=== PATIENT | female | born 1935 | race Caucasian/White ===

== ENCOUNTER 2018-11-03 10:13 | Inpatient (IN) | payer MEDICARE, BC ==
[2018-11-03 11:27] LABS: CHLORIDE,CL 103 mmol/L (98-115); SODIUM,NA 138 mmol/L (136-145)
[2018-11-03] MEDS ORDERED: Magnesium Citrate Solution 296 ML Bottle PO ONE (12:10)
--- NOTE | 2018-11-03 12:11 | CR ---
[id number] RAD/RAD Chest PA And Lateral EXAM: RAD Chest PA And Lateral INDICATION: CARDIAC ARRHYTHMIA,UNSPECIFIED. COMPARISON: October 18, 2017. DISCUSSION: Right chest wall Mediport. Cardiomediastinal silhouette is normal in size and contour. No infiltrate, effusion, pneumothorax, or edema. IMPRESSION: No acute cardiopulmonary abnormality. Keon Sinha DO 11/03/18 [id number] Thank you for allowing us to participate in the care of your patient.
--- NOTE | 2018-11-03 12:13 | CR ---
[id number] RAD/RAD Abd Flat and Upright 2V EXAM: RAD Abd Flat and Upright 2V INDICATION: CARDIAC ARRHYTHMIA,UNSPECIFIED. COMPARISON: MRI abdomen with and without contrast 04/22/2017. DISCUSSION: Unobstructed bowel gas pattern. No radiographically evident pneumoperitoneum. Moderate amount of retained stool within the colon. IMPRESSION: Moderate amount of retained stool within the colon. No evidence of obstruction. Keon Sinha DO 11/03/18 [id number] Thank you for allowing us to participate in the care of your patient.
[2018-11-03] MEDS ORDERED: Diltiazem 125 MG in Sodium Chloride 0.9% 100 ML IV SCH (12:15)
[2018-11-03] MEDS ORDERED: diphenhydrAMINE 25 MG Cap PO ONE (13:02)
[2018-11-03] MEDS ORDERED: Acetaminophen 325 MG Tab PO ONE (13:04)
[2018-11-03] MEDS: Rivaroxaban 10 MG Tab PO SCH (13:07)
[2018-11-03] MEDS ORDERED: Furosemide 40 MG/4 ML VIAL IVPUSH ONE (13:14)
[2018-11-03] MEDS ORDERED: Acetaminophen 500 MG Tab PO ONE (14:15)
[2018-11-03] MEDS ORDERED: Sodium Chloride 0.9% 250 ML IV SCH (14:45)
[2018-11-03] MEDS ORDERED: Furosemide 40 MG/4 ML VIAL ONE (19:27)
[2018-11-03] MEDS: TRIAMCINOLONE ACETONIDE 0.1% TOP SCH (20:17)
[2018-11-03] MEDS ORDERED: traZODone 50 MG Tab PO ONE (23:19)
[2018-11-04] MEDS ORDERED: Diltiazem 125 MG in Sodium Chloride 0.9% 100 ML IV SCH (03:30)
[2018-11-04 08:16] LABS: ANION GAP 20.5 mmol/L (5-15); CHLORIDE,CL 99 mmol/L (98-115); SODIUM,NA 137 mmol/L (136-145)
[2018-11-04] MEDS: TRIAMCINOLONE ACETONIDE 0.1% TOP SCH ×3 (09:27→20:18)
[2018-11-04] MEDS: Levothyroxine 75 MCG Tab PO SCH (12:07)
[2018-11-04] MEDS ORDERED: Triamcinolone Acetonide 0.1% Oint 15 GM Tube TOP SCH (14:00)
--- NOTE | 2018-11-04 14:17 | PN ---
11/04/2018 PATIENT NAME: MEAGAN LOPEZ This is an 83-year-old female who is being seen today on inpatient rounds. She was admitted yesterday from the clinic with a new onset of atrial fibrillation with a rapid ventricular rate. Her initial EKG showed atrial fibrillation with RVR and frequent premature ventricular contractions. The ventricular rate was 121. By the time she got to the floor and was hooked up to telemetry, her heart rate had been 75 to 86. A Cardizem drip was initially entertained, however, was aborted due to the fact that she had a controlled rhythm. During the night last night, her heart rate did go up to 150 for a short period of time. A Cardizem drip was ordered again. By the time it was verified by pharmacy, the patient had normalized in the 80s to 90s again. She continues to be in atrial fibrillation with a ventricular rate of 85 to 91 with an occasional premature ventricular contraction. She also had difficulty sleeping last night and was given trazodone. Today, the patient states she just felt so tired and actually immediately after Dr. Rose and I left the room today, the patient fell back to sleep soundly. We did have an in-depth discussion yesterday regarding her CODE STATUS. Her wishes are to be DNR DNI. This is not documented in an advance directive. A social service consultation has been requested. When I went back in the room to sign the cardiopulmonary resuscitation, the CPR/DNR directive, the patient was sound asleep. When she wakes up, we will address this today. She did receive 2 units of packed RBCs yesterday due to the fact that her hemoglobin was 7.5, which is the low parameter for her to receive blood transfusions. PERTINENT LAB: Today's pertinent lab, WBCs 4.71, RBCs 3.14, hemoglobin 9.7 today, which is up two points. Comprehensive metabolic panel shows a normal sodium and potassium of 137 and 4.6 respectively. BUN is 36 today, whereas yesterday it was 27. Creatinine was low yesterday at 0.50 and today is 0.64. Calcium is low at 8.4. Total bilirubin was 2.8 yesterday and has gone up to 5.6 today. AST was 249 yesterday and went up to 541 today. ALT was 321 yesterday and 664 today. Alkaline phosphatase is increased from 118 to 139. Her BNP was 1190 yesterday. She was given 20 mg of Lasix in between her units of blood. TSH was elevated yesterday at 4.910. Two weeks ago, her levothyroxine dose was adjusted and she most likely has not adjusted to the new dose. She is due for a followup TSH in one month. Yesterday, a troponin was drawn and was found to be 0.11. It trended downward at 4 p.m. yesterday at 0.09 and this morning is 0.08. There may have been some component of a small myocardial infarction, which is a [id number] CT. EKG did not reflect this. She will need to have an echocardiogram on an outpatient basis. PHYSICAL EXAMINATION: VITAL SIGNS: Temp is 98.8, pulse 90, respirations 20, blood pressure 106/52, and O2 saturation is 98% on room air. SKIN: Ashen, dry, somewhat cool to touch. CARDIAC: Exam reveals S1, S2 to be normal with an irregularly irregular rhythm. LUNGS: Clear without rales, wheezes, or rhonchi. ABDOMEN: Soft, nontender. There is some mild pedal edema. IMPRESSION: 1. New onset atrial fibrillation with RVR with a controlled rate at this time. Dr. Alexa Rose did see the patient today and suggested that she be up walking more today to see what her rhythm does. On telemetry, she still is in atrial fibrillation with an occasional premature ventricular response. 2. Possible non-STEMI CT. She will be scheduled for an echocardiogram after discharge. 3. Elevated liver function tests, which have worsened. We will monitor these on a daily basis. 4. Myelodysplastic syndrome with anemia requiring frequent blood transfusions. She did receive 2 units of packed RBCs yesterday and her hemoglobin has improved. The patient is not feeling considerably better yet today. She reports it usually takes one day or so. 5. Congestive heart failure with an elevated BNP and pedal edema found on admission. She had gained 9 pounds prior to admission. Today she is exactly the same as she was yesterday. 6. The patient is on Xarelto. We will see what her rhythm does. She has had a couple of episodes where she has had a rapid ventricular rate. We will see how she does with exercise. She may benefit from calcium channel blockers for rhythm control. 7. Hypothyroidism. Her TSH was elevated. However, she has had a dose adjustment within the last two weeks. She will repeat a TSH in one month. /[id number]/MODL
[2018-11-04] MEDS: Rivaroxaban 10 MG Tab PO SCH (14:25)
[2018-11-04] MEDS: EXJADE 500 MG PO SCH (14:27)
[2018-11-04] MEDS ORDERED: Magnesium Citrate Solution 296 ML Bottle PO ONE (17:03)
[2018-11-04] MEDS ORDERED: Magnesium Sulfate/Water 2 GM in Premix Bag 1 BAG IV ONE (17:12)
[2018-11-04] MEDS ORDERED: Magnesium Sulfate 2 GM in Sodium Chloride 0.9% 100 ML IV ONE (17:30)
[2018-11-04] MEDS ORDERED: traZODone 50 MG Tab PO PRN (21:00)
[2018-11-05] MEDS: Levothyroxine 75 MCG Tab PO SCH ×2 (06:13→06:29)
[2018-11-05 08:20] LABS: ANION GAP 16.1 mmol/L (5-15); CHLORIDE,CL 100 mmol/L (98-115); SODIUM,NA 138 mmol/L (136-145)
[2018-11-05] MEDS: Cholecalciferol (Vitamin D3) 1,000 Unit Tab PO SCH (08:52)
[2018-11-05] MEDS: B.Bifidum/B.Longum/L.Acidophilus/L.Rhamnosus (Probiotic) Cap PO SCH (08:52)
[2018-11-05] MEDS: Vitamin B Complex Tab PO SCH (08:52)
[2018-11-05] MEDS: Aspirin 81 MG Tab.EC PO SCH (08:53)
[2018-11-05] MEDS: Levofloxacin 500 MG Tab PO SCH (08:53)
[2018-11-05] MEDS: Fluconazole 100 MG Tab PO SCH (08:53)
[2018-11-05] MEDS ORDERED: DEFERASIROX PO SCH (09:00)
[2018-11-05] MEDS: TRIAMCINOLONE ACETONIDE 0.1% TOP SCH ×3 (09:52→21:29)
[2018-11-05] MEDS: EXJADE 500 MG PO SCH (09:52)
[2018-11-05] MEDS: Diltiazem IR 30 MG Tab PO SCH ×3 (10:52→22:36)
[2018-11-05] MEDS: Rivaroxaban 10 MG Tab PO SCH (14:47)
[2018-11-05] MEDS: Sodium Chloride 0.9% 20 ML SDV FLUSH SCH (22:36)
[2018-11-06] MEDS: Diltiazem IR 30 MG Tab PO SCH ×2 (06:04→11:40)
[2018-11-06] MEDS: Sodium Chloride 0.9% 20 ML SDV FLUSH SCH ×3 (06:05→21:58)
[2018-11-06 07:51] LABS: ANION GAP 11.8 mmol/L (5-15); CHLORIDE,CL 100 mmol/L (98-115); SODIUM,NA 135 mmol/L (136-145)
[2018-11-06] MEDS: Fluconazole 100 MG Tab PO SCH (08:31)
[2018-11-06] MEDS: Levofloxacin 500 MG Tab PO SCH (08:32)
[2018-11-06] MEDS: B.Bifidum/B.Longum/L.Acidophilus/L.Rhamnosus (Probiotic) Cap PO SCH (08:32)
[2018-11-06] MEDS: Aspirin 81 MG Tab.EC PO SCH (08:32)
[2018-11-06] MEDS: Cholecalciferol (Vitamin D3) 1,000 Unit Tab PO SCH (08:33)
[2018-11-06] MEDS: Vitamin B Complex Tab PO SCH (08:34)
[2018-11-06] MEDS: EXJADE 500 MG PO SCH (10:49)
[2018-11-06] MEDS: TRIAMCINOLONE ACETONIDE 0.1% TOP SCH ×3 (11:00→21:06)
[2018-11-06] MEDS: Levothyroxine 75 MCG Tab PO SCH (11:39)
--- NOTE | 2018-11-06 12:18 | PCM.PN ---
- General Info Date of Service: 11/06/18 Admission Dx/Problem (Free Text): A-fib with RVR. MDS Anemia secondary to MDS. - Review of Systems Systems Review Comment:: Dodie is seen today on inpatient rounds. She was admitted on 11/03/18 from clinic with new onset atrial fibrillation with RVR. Rate was initially 121. By the time she got to the floor and was hooked up to telemetry her heart rate was down to 75. Cardizem was not started initially. She had an episode over night on the where her HR went to the 150's but again, by the time the diltiazem drip was verified by pharmacy she had come down without any intervention. On 11/04/18 she had an episode in the afternoon of HR up to the 140's and EKG was obtained which showed a very regular SVT, not a-fib with RVR. Without any intervention she converted to NSR with EKG to document that. As she continued to go in and out of a-fib and irregular rhythms she was started on a diltiazem drip although she did drop her BP to the 80's systolic and even though her HR was 105 at the time, it was discontinued. She was started on oral diltiazem 30 mg PO q 6 hours and for the past 24 hours her HR has not been above 100 and on telemetry she appears to currently be in NSR. Dodie is very complicated. She has myelodysplastic syndrome and is transfusion dependent. While her bone marrow is "low risk" she has very low WBC and is at high risk for infection. She is on prophylactic levofloxacin as well as fluconazole. She has largely remained healthy. Upon admission her her troponin was elevated at 0.11 and trended down without any intervention. Last check was 11/05 and was 0.7. BNP was also elevated at 1190 on admission, she has no hx of heart failure. She also had a transaminitis that has slowly been improving without intervention. Her weight increased from 137 to 144 lbs, presumably from volume overload as she has not been eating more than usual. She is on no diuretic therapy at the current time. She has developed iron overload secondary to multiple transfusions and is currently on Exjade daily. She has a hx of hypothyroidism, TSH was slightly elevated on admission but T4 is WNL. Current dose of levothyroxine is 150mcg PO daily. She has been constipated and has received MOM, she has had BM's subsequent to that. She was started on Xarelto for stroke prophylaxis due to paroxysmal a-fib and has been tolerating that. She has some skin breakdown on her feet, she had a sore on her left heel that she has been using duoderm on and there has been significant improvement. The tips of all her toes are cracked and she has been using triamcinolone on her feet, which has been helping. - Patient Data Vitals - Most Recent: Last Vital Signs Temp 97.8 F 11/06/18 11:00 Pulse 81 11/06/18 11:40 Resp 16 11/06/18 11:00 BP 100/52 L 11/06/18 11:40 Pulse Ox 97 11/06/18 11:00 Weight - Most Recent: 144 lb 1 oz I&O - Last 24 Hours: Intake & Output 11/05/18 11/06/18 11/06/18 22:59 06:59 14:59 Intake Total 400 100 Output Total 400 400 Balance 0 -300 Lab Results Last 24 Hours: Laboratory Results - last 24 hr 11/05/18 11/06/18 11/06/18 Range/Units 07:30 07:15 07:15 WBC 2.49 L (5.00-10.00) 10^3/uL RBC 2.84 L (3.80-5.50) 10^6/uL Hgb 8.7 L (12.0-16.0) g/dL Hct 25.5 L (37.0-47.0) % MCV 89.8 (82.0-92.0) fL MCH 30.6 (27.0-31.0) pg MCHC 34.1 (32.0-36.0) g/dL RDW 14.8 H (11.5-14.5) % Plt Count 88 L (150-400) 10^3/uL MPV 13.2 H (7.4-10.4) fL Sodium 135 L (136-145) mmol/L Potassium 4.2 (3.3-5.3) mmol/L Chloride 100 (98-115) mmol/L Carbon Dioxide 27.4 (21.0-32.0) mmol/L Anion Gap 11.8 (5-15) mmol/L BUN 20 (6-25) mg/dL Creatinine 0.42 L (0.51-1.17) mg/dL Est Cr Clr Drug Dosing 94.53 mL/min Estimated GFR (MDRD) > 60 mL/min Glucose 134 H (75 - 99) mg/dL Calcium 8.3 L (8.7-10.3) mg/dL Total Bilirubin 2.5 H (0.2-1.0) mg/dL AST 180 H (15-37) U/L ALT 469 H (12-78) U/L Alkaline Phosphatase 118 H (46-116) IU/L Total Protein 4.8 L (6.4-8.2) g/dL Albumin 2.85 L (3.00-4.80) g/dL Free T4 0.86 (0.59-1.17) ng/dL Med Orders - Current: Current Medications Aspirin (Halfprin) 81 mg PO DAILY [facility] Last Admin: 11/06/18 08:32 Dose: 81 mg Cholecalciferol (Vitamin D3) 2,000 units PO DAILY [facility] Last Admin: 11/06/18 08:33 Dose: 2,000 units Diltiazem HCl (Cardizem Cd) 120 mg PO DAILY [facility] Docusate Sodium (Colace) 100 mg PO BID [facility] Fluconazole (Diflucan) 200 mg PO DAILY [facility] Last Admin: 11/06/18 08:31 Dose: 200 mg Sodium Chloride (Normal Saline) 250 mls @ 50 mls/hr IV ASDIRECTED [facility] Last Admin: 11/04/18 18:04 Dose: 50 mls/hr Diltiazem HCl 125 mg/ Sodium (Chloride) 125 mls @ 5 mls/hr IV TITRATE E[facility]IN; Protocol Last Admin: 11/04/18 23:00 Dose: 5 mg/hr, 5 mls/hr Lactobacillus Acidophilus/Rhamnosus (Multi-Sharon Plus) 1 cap PO DAILY [facility] Last Admin: 11/06/18 08:32 Dose: 1 cap Levofloxacin (Levaquin) 500 mg PO DAILY [facility] Last Admin: 11/06/18 08:32 Dose: 500 mg Levothyroxine Sodium (Levothyroxine) 150 mcg PO ACBREAKFAST [facility] Last Admin: 11/06/18 11:39 Dose: 150 mcg Exjade 500 Mg Own (Med) 0 each PO DAILY [facility] Last Admin: 11/06/18 10:49 Dose: 1 each Rivaroxaban (Xarelto) 20 mg PO 1300 [facility] Last Admin: 11/05/18 14:47 Dose: 20 mg Sodium Chloride (Normal Saline) 20 ml FLUSH Q8H ERLIN Last Admin: 11/06/18 06:05 Dose: 20 ml Trazodone HCl (Trazodone) 50 mg PO BEDTIME PRN PRN Reason: Sleep Last Admin: 11/05/18 22:36 Dose: 50 mg Triamcinolone Acetonide (Triamcinolone Acetonide 0.1% Oint) 0 gm TOP TID [facility] Last Admin: 11/05/18 21:29 Dose: 1 applic Vitamin B Complex (Vitamin B Complex) 1 each PO DAILY [facility] Last Admin: 11/06/18 08:34 Dose: 1 each Discontinued Medications Acetaminophen (Tylenol) 650 mg PO NOW ONE Stop: 11/03/18 13:05 Last Admin: 11/03/18 14:39 Dose: Not Given Acetaminophen (Tylenol Extra Strength) 1,000 mg PO ONETIME ONE Stop: 11/03/18 14:16 Last Admin: 11/03/18 14:30 Dose: 1,000 mg Diltiazem HCl (Cardizem) 30 mg PO Q6HR [facility] Last Admin: 11/06/18 11:40 Dose: 30 mg Diphenhydramine HCl (Benadryl) 25 mg PO ONETIME ONE Stop: 11/03/18 13:03 Last Admin: 11/03/18 14:21 Dose: 25 mg Furosemide (Lasix) 20 mg IVPUSH NOW ONE Stop: 11/03/18 13:15 Last Admin: 11/03/18 19:33 Dose: 20 mg Furosemide (Lasix) Confirm Administered Dose 40 mg .ROUTE .STK-MED ONE Stop: 11/03/18 19:28 Last Admin: 11/03/18 19:45 Dose: Not Given Diltiazem HCl 125 mg/ Sodium (Chloride) 125 mls @ 5 mls/hr IV TITRATE ERLIN; Protocol Magnesium Sulfate 2 gm/ Premix 50 mls @ 150 mls/hr IV ONETIME ONE Stop: 11/04/18 17:31 Last Admin: 11/04/18 18:20 Dose: Not Given Magnesium Sulfate 2 gm/ Sodium (Chloride) 104 mls @ 104 mls/hr IV ONETIME ONE Stop: 11/04/18 18:29 Last Admin: 11/04/18 18:03 Dose: 104 mls/hr Magnesium Citrate (Citrate Of Magnesia) 30 ml PO ONETIME ONE Stop: 11/03/18 12:11 Last Admin: 11/03/18 13:00 Dose: 30 ml Magnesium Citrate (Citrate Of Magnesia) 30 ml PO ONETIME ONE Stop: 11/04/18 17:04 Last Admin: 11/04/18 18:04 Dose: 30 ml Ptom Jadenu ( (Deferasirox) 500mg) 500 each PO DAILY ERLIN Trazodone HCl (Trazodone) 50 mg PO ONETIME ONE Stop: 11/03/18 23:20 Last Admin: 11/03/18 23:42 Dose: 50 mg Triamcinolone Acetonide (Triamcinolone Acetonide 0.1% Oint) 1 gm TOP TID ERLIN Last Admin: 11/04/18 18:03 Dose: Not Given - Exam General: Alert, Oriented, Cooperative, No Acute Distress Lungs: Clear to Auscultation, Normal Respiratory Effort Cardiovascular: Regular Rate, Regular Rhythm, No Murmurs GI/Abdominal Exam: Normal Bowel Sounds Skin: Other (Cracking of the skin at the tips of her toes bilaterally, no evidence of cellulitis. Healing skin ulcer of the left heel.) - Problem List & Annotations (1) Atrial fibrillation with rapid ventricular response SNOMED Code(s): 053701531481758 Code(s): I48.91 - UNSPECIFIED ATRIAL FIBRILLATION Status: Acute Current Visit: Yes (2) Myelodysplastic syndrome SNOMED Code(s): 807540755 Code(s): D46.9 - MYELODYSPLASTIC SYNDROME, UNSPECIFIED Status: Acute Current Visit: Yes (3) Hypothyroidism SNOMED Code(s): 14822077 Code(s): E03.9 - HYPOTHYROIDISM, UNSPECIFIED Status: Acute Current Visit : Yes (4) Iron overload due to repeated red blood cell transfusions SNOMED Code(s): 551114083 Code(s): E83.111 - HEMOCHROMATOSIS DUE TO REPEATED RED BLOOD CELL TRANSFUSIONS Status: Acute Current Visit: Yes (5) Constipation SNOMED Code(s): 83720615 Code(s): K59.00 - CONSTIPATION, UNSPECIFIED Status: Acute Current Visit: Yes (6) Weakness SNOMED Code(s): 65795163 Code(s): R53.1 - WEAKNESS Status: Acute Current Visit: Yes - Problem List Review Problem List Initiated/Reviewed/Updated: Yes - My Orders Last 24 Hours: My Active Orders 11/06/18 11:44 Communication Order [RC] ROUTINE 11/06/18 12:00 Diltiazem [Cardizem CD] 120 mg PO DAILY 11/06/18 21:00 Docusate Sodium [Colace] 100 mg PO BID - Assessment Assessment:: Primary Diagnoses: 1. A-fib with RVR. 2. Anemia secondary to MDS. 3. Possible congestive heart failure. 4. Weakness. Secondary diagnoses: 1. Hypothyroidism. 2. Iron overload secondary to repeated blood transfusion. 3. Skin breakdown. 4. Constipation. - Plan Plan:: Primary Diagnoses: 1. A-fib with RVR. Will transition to Diltiazem XR 120 mg PO daily. Rate currently controlled, and currently in NSR. 2. Anemia secondary to MDS. Transfuse for hemoglobin 7.5 or less. 3. Possible congestive heart failure. Discontinue IVF's, monitor weight, lasix PRN. Will get ECHO later this week. Needs cardiology consultation. 4. Weakness. Will get PT eval and treat for possible swingbed status. Secondary diagnoses: 1. Hypothyroidism. Continue levothyroxine 150 mcg PO daily. T4 WNL. 2. Iron overload secondary to repeated blood transfusion. Continue Exjade. 3. Skin breakdown. Triamcinolone to feel, cover with vaseline, then soft socks. Duoderm to left heel. 4. Constipation. Colace 100 mg PO BID.
[2018-11-06] MEDS: Rivaroxaban 10 MG Tab PO SCH (12:46)
[2018-11-06] MEDS: Diltiazem 120 MG Cap.CD PO SCH (12:47)
[2018-11-06] MEDS ORDERED: Furosemide 40 MG/4 ML VIAL IVPUSH ONE (18:26)
[2018-11-06] MEDS: Docusate Sodium 100 MG Cap PO SCH (21:06)
[2018-11-07] MEDS: Sodium Chloride 0.9% 20 ML SDV FLUSH SCH ×2 (07:23→08:13)
[2018-11-07] MEDS: Levothyroxine 75 MCG Tab PO SCH (07:29)
[2018-11-07 07:54] LABS: ANION GAP 15.1 mmol/L (5-15); CHLORIDE,CL 97 mmol/L (98-115); SODIUM,NA 135 mmol/L (136-145)
[2018-11-07] MEDS: Levofloxacin 500 MG Tab PO SCH (08:38)
[2018-11-07] MEDS: Docusate Sodium 100 MG Cap PO SCH (08:38)
[2018-11-07] MEDS: Vitamin B Complex Tab PO SCH (08:38)
[2018-11-07] MEDS: Cholecalciferol (Vitamin D3) 1,000 Unit Tab PO SCH (08:38)
[2018-11-07] MEDS: Aspirin 81 MG Tab.EC PO SCH (08:38)
[2018-11-07] MEDS: B.Bifidum/B.Longum/L.Acidophilus/L.Rhamnosus (Probiotic) Cap PO SCH (08:39)
[2018-11-07] MEDS: Fluconazole 100 MG Tab PO SCH (08:39)
[2018-11-07] MEDS: Diltiazem 120 MG Cap.CD PO SCH (09:10)
[2018-11-07] MEDS: TRIAMCINOLONE ACETONIDE 0.1% TOP SCH (09:29)
[2018-11-07] MEDS ORDERED: EXJADE 500 MG PO SCH (10:30)
[2018-11-07 10:58] VITALS: BP 94/52
[2018-11-07] MEDS ORDERED: Nitroglycerin 0.4 MG Tab.SL SL PRN (11:38)
[2018-11-07] MEDS ORDERED: Atropine 0.1 MG/ML 10 ML Syringe IVPUSH PRN (11:38)
[2018-11-07] MEDS ORDERED: EPINEPHrine 1:10,000 1 MG/10 ML Syringe IVPUSH PRN (11:38)
[2018-11-07] MEDS ORDERED: Lidocaine 2% 100 MG/5 ML Syringe IVPUSH PRN (11:38)
--- NOTE | 2018-11-07 11:58 | PN ---
11/05/2018 PATIENT NAME: MEAGAN LOPEZ SUBJECTIVE: This is an 83-year-old female who was admitted to the hospital on for new-onset atrial fibrillation with rapid ventricular rate. She has had a couple of episodes of SVT. There have been a couple of times as well that she was to receive a Cardizem drip, but by the time the order was verified she had converted or her rate had improved. Yesterday, when I saw her in the afternoon, she was in a normal sinus rhythm. She did go into an atrial fibrillation at a rate of 150 at approximately 10:45 last evening Cardizem drip was administered for approximately 15 minutes and she did convert back into sinus rhythm. This morning, she had another episode of atrial fibrillation with RVR and the Cardizem drip was reinstituted, however, had to be discontinued due to hypotension. The patient reports she feels better today. She is currently in atrial fibrillation with premature ventricular contractions. She is feeling less tired. She was constipated on admission and has received magnesium citrate and has had some satisfactory bowel movements. LABORATORY DATA: Pertinent lab data from today; her hemoglobin is 9.8. White blood cell count is 3.24, RBCs 3.23, hematocrit is 28.8. Panel shows a normal sodium and potassium. Her magnesium was low yesterday at 1.7. She did receive a one time dose of 2 g of magnesium sulfate IV. Her magnesium now is 2.2 today. Calcium is 8.5 with a normal range being 8.7-10.3. Her albumin is normal. Liver enzymes were elevated yesterday in fact had risen profoundly. Her admission total bilirubin was 2.8. Yesterday was 5.6 and today it has come down to 3.7. AST was 249 at admission, went up to 541 yesterday, and has improved to 343 today. ALT on admission was 321 and went up to 664 yesterday and now it is 619. Alkaline phosphatase was 118 on admission and is now 134. There was concern that she possibly had a small myocardial infarction and non- STEMI. Troponin I on admission was 0.11. Later that day, it trended downward to 0.09. Yesterday, it was 0.08 and today is normal at 0.07 and is trending downward. TSH was elevated on admission at 4.910. Two weeks ago, she had levothyroxine dosage adjustment. She will have a repeat TSH in a month. OBJECTIVE: VITAL SIGNS: On exam, temp is 98.1, pulse 92, respirations 20, blood pressure 107/57, O2 saturation is 93% on room air. SKIN: Slightly ashen/grayish, however, improved from yesterday. Yesterday, she did have some mild jaundice today. This is improved. CARDIAC: Reveals an irregularly irregular rhythm with no murmur, click, or gallop at this time appreciated. LUNGS: Clear without rales, wheezes, or rhonchi. ABDOMEN: Soft, nontender. Bowel sounds present in all 4 quadrants. There is a trace pedal edema. IMPRESSION: 1. Atrial fibrillation with rapid ventricular response. She is going in an out of the atrial fibrillation. She does have a Cardizem drip on standby. However, this morning when the Cardizem drip was initiated, it had to be discontinued due to hypotension. She will start on oral Cardizem 30 mg every 6 hours today. We will see how she tolerates this. We did talk yesterday about possible transfer to [place] for Cardiology consultation, possibly procedures if indicated. She has thought about this. Being this is a weekend, we will keep her here. She is hemodynamically stable. She will need an echocardiogram as soon as possible. 2. Myelodysplastic syndrome. She did have 2 units of packed RBCs on the day of admission and her hemoglobin has improved to 9.8. 3. Elevated liver function tests, etiology unclear. These jumped up so high yesterday and seemed to be trending downward now. 4. [id number] myocardial infarction with elevated troponin. Her troponins have normalized today. 5. Hypomagnesemia. This is improved with one dose of mag sulfate 2 g. 6. Hypothyroidism. She did have an elevated TSH; however, she has recently had a levothyroxine dose adjustment. It was most likely too early to repeat it on admission, but because she was in a new-onset atrial fibrillation with rapid ventricular response, we did check it. A TSH will be checked again in a month. We will continue to monitor her. I will update Dr. Alexa Rose on the patient's progress. /[id number]/MODL
--- NOTE | 2018-11-07 14:37 | DISCH ---
ADDENDUM: This discharge summary also serves as her admission history and physical for swing bed admission. /[id number]/MODL
--- NOTE | 2018-11-08 09:22 | DISCH ---
This is an 83-year-old female who was admitted to the hospital on 11/03/2018 with new onset atrial fibrillation with rapid ventricular rate. She has also had a couple of episodes of SVT. There have been a couple of times as well that she was to receive a Cardizem drip, but by the time the order was verified, she converted or her rate had improved. On 11/04/2018, the patient had converted into normal sinus rhythm. She then went back into atrial fibrillation, requiring a Cardizem drip for a short period of time, which converted her back into sinus rhythm. On 11/05/2018, the Cardizem drip was again reinstituted due to atrial fibrillation with RVR; however, the patient did not tolerate it due to hypotension. The patient was started on oral Cardizem 30 mg every 6 hours on 11/05/2018. She was tolerating that and Dr. Alexa Rose changed her to long- acting Cardizem 120 mg daily yesterday. She continues to be in sinus rhythm at this time. We had discussed her transferring to [facility] for a Cardiology workup; however, the patient has become quite weak from inactivity and will need to be optimized. It is also now not urgent that she had the Cardiology consultation due to the fact that she is in a stable normal sinus rhythm. She is now scheduled for an echocardiogram and peripheral arterial ultrasounds this week. The patient is hemodynamically stable. She was evaluated by Physical Therapy, who felt that approximately 1 week in swing bed would help optimize her to the point where she could return home. The patient has a history of myelodysplastic syndrome. She did receive 2 units of packed RBCs on the day of admission. Her hemoglobin is staying stable at 9.2 today. The patient had elevated liver function tests throughout her inpatient stay, which have been trending downward now. She may have had a [id number] myocardial infarction with elevated troponin. Her troponins did normalize. An echocardiogram will show if there is any wall motion abnormalities or any valvular dysfunction. It would be interesting to know what her ejection fraction is. She did have hypomagnesemia, which improved with one dose of mag sulfate. She has a history of hypothyroidism and had a levothyroxine dose adjustment approximately 2 weeks ago. I did check a TSH on admission due to the atrial fibrillation with RVR. She will have a repeat in 1 month. I did not readjust her medication at this time. A T4 was drawn yesterday and found to be normal. The patient also has intermittent cyanosis of her lower extremities and some open sores on her toes, which have been treated with triamcinolone. She also has a right heel ulcer which she has been applying DuoDerm to. The patient thinks she may have had peripheral Doppler ultrasounds in the past, but she is unclear about this. PHYSICAL EXAM ON DISCHARGE: VITAL SIGNS: On exam, she is afebrile. She is in a normal sinus rhythm with a ventricular rate of 70s to 80s per telemetry. Respirations are 20, blood pressure is 106/70. O2 saturation is 98% on room air. SKIN: Warm and dry to touch. CARDIAC: Reveals S1, S2 to be normal. Rate and rhythm are regular. No murmur, click, or gallop is auscultated. LUNGS: Clear without rales, wheezes, or rhonchi. ABDOMEN: Soft, nontender. Bowel sounds present in all 4 quadrants. EXTREMITIES: There is mild pedal edema and some cyanotic color of her toes with open areas on the distal aspects of most of the digits of the lower extremities. IMPRESSION: 1. Atrial fibrillation with rapid ventricular response. She is now converted to normal sinus rhythm with an unacceptable ventricular rate. She will continue on oral Cardizem. She will have an echocardiogram performed on , 11/10/2018 in this facility at 1 p.m. 2. Congestive heart failure. BNP today was 1070, this is a slight improvement from admission. She did receive Lasix yesterday due to some increased shortness of breath and some increased fluid in her lower extremities, which has improved with one dose of Lasix. Her weight was 9 pounds, higher than normal on the day of admission and since admission has went from 137 to 144. Unchanged with the Lasix dose yesterday. 3. Myelodysplastic syndrome. She did receive a blood transfusion on the day of her inpatient admission for a hemoglobin of 7.5. Her hemoglobin now is 9.2. 4. Elevated liver function tests. Etiology still unclear to me; however, they are trending downward and the patient is no longer jaundiced. 5. [id number] myocardial infarction with elevated troponin. Her troponins have now normalized. 6. Hypomagnesemia, resolved with one dose of mag sulfate 2 g IV. 7. Hypothyroidism. TSH was elevated, however, she has recently had a levothyroxine dose adjustment. T4 was normal yesterday. 8. Hematuria. She did have some blood in her urine today. We did obtain a urine sample, which showed urine rbc 75 to 100 with a large amount of occult blood. This is most likely from the Xarelto. We will continue to monitor this closely. 9. Cyanosis of the lower extremities with ulcerations of many of the digits of the lower extremities. A peripheral arterial ultrasound will be performed in this facility on 11/09/2018 at 8:30 in the morning. She is now being transferred to swing bed care. Cardiology consultation will be scheduled as soon as possible. The patient will undergo physical therapy for deconditioning and hopefully be optimized to the point where she can go home. [place] Her plan is to move into assisted living in the middle of November. Her son and daughter were at bedside today and all plan of care was discussed with them and they wished to proceed. My findings were communicated with Dr. Alexa Rose, who is very familiar with this patient's condition. /[id number]/MODL
== END 2018-11-07 12:07 | disposition swing bed (61) | DRG 281 ==
LOC: KA.OC 10:13 → KA.MS 11:27
PROC: 30233N1 Transfusion of Nonautologous Red Blood Cells into Peripheral Vein, Percutaneous Approach (ICD-10-PCS; principal; 2018-11-03)
DX: I48.91 Unspecified atrial fibrillation (principal); I21.4 Non-ST elevation (NSTEMI) myocardial infarction; L97.419 Non-pressure chronic ulcer of right heel and midfoot with unspecified severity; D46.9 Myelodysplastic syndrome, unspecified; E03.9 Hypothyroidism, unspecified; R79.89 Other specified abnormal findings of blood chemistry; Z96.1 Presence of intraocular lens; K59.00 Constipation, unspecified; Z66 Do not resuscitate; D63.8 Anemia in other chronic diseases classified elsewhere; E83.111 Hemochromatosis due to repeated red blood cell transfusions; I95.9 Hypotension, unspecified; E83.42 Hypomagnesemia; R31.9 Hematuria, unspecified; I50.9 Heart failure, unspecified; L97.509 Non-pressure chronic ulcer of other part of unspecified foot with unspecified severity; Z79.82 Long term (current) use of aspirin; Z90.49 Acquired absence of other specified parts of digestive tract; Z98.49 Cataract extraction status, unspecified eye; Z79.899 Other long term (current) drug therapy; Z90.710 Acquired absence of both cervix and uterus; Z88.8 Allergy status to other drugs, medicaments and biological substances
CPT/HCPCS: 36415; 36430; 71046; 74021; 80053; 81001; 82728; 83735; 83880; 84439; 84443; 84484; 85025; 85027; 86850; 86900; 86901; 86920; 86922; 93005; 97162-GP; A9270-GY; J1940; J3475; J3490; J7050; P9016

== ENCOUNTER 2018-11-07 10:50 | Inpatient (IN) | payer MEDICARE, BC ==
[2018-11-07] MEDS ORDERED: EPINEPHrine 1:10,000 1 MG/10 ML Syringe IVPUSH PRN (12:14)
[2018-11-07] MEDS ORDERED: Atropine 0.1 MG/ML 10 ML Syringe IVPUSH PRN (12:14)
[2018-11-07] MEDS ORDERED: traZODone 50 MG Tab PO PRN (12:14)
[2018-11-07] MEDS ORDERED: Nitroglycerin 0.4 MG Tab.SL SL PRN (12:14)
[2018-11-07] MEDS ORDERED: Lidocaine 2% 100 MG/5 ML Syringe IVPUSH PRN (12:14)
[2018-11-07] MEDS: Rivaroxaban 10 MG Tab PO SCH (13:26)
[2018-11-07] MEDS: Triamcinolone Acetonide 0.1% Oint 15 GM Tube TOP SCH ×2 (13:33→22:10)
[2018-11-07] MEDS ORDERED: Triamcinolone Acetonide 0.1% Oint 15 GM Tube TOP SCH (14:00)
[2018-11-07] MEDS ORDERED: Furosemide 40 MG/4 ML VIAL IVPUSH ONE (19:38)
[2018-11-07] MEDS: Sodium Chloride 0.9% 20 ML SDV FLUSH SCH ×2 (19:55→22:41)
[2018-11-07] MEDS: Docusate Sodium 100 MG Cap PO SCH ×2 (19:55→22:41)
[2018-11-08] MEDS: Levothyroxine 75 MCG Tab PO SCH (07:18)
[2018-11-08 07:54] LABS: ANION GAP 9.1 mmol/L (5-15); CHLORIDE,CL 100 mmol/L (98-115); SODIUM,NA 137 mmol/L (136-145)
[2018-11-08] MEDS: Levofloxacin 500 MG Tab PO SCH (08:56)
[2018-11-08] MEDS: Docusate Sodium 100 MG Cap PO SCH ×2 (08:56→20:57)
[2018-11-08] MEDS: Fluconazole 100 MG Tab PO SCH (08:56)
[2018-11-08] MEDS: Aspirin 81 MG Tab.EC PO SCH (08:56)
[2018-11-08] MEDS: Cholecalciferol (Vitamin D3) 1,000 Unit Tab PO SCH (08:57)
[2018-11-08] MEDS: Vitamin B Complex Tab PO SCH (08:57)
[2018-11-08] MEDS: B.Bifidum/B.Longum/L.Acidophilus/L.Rhamnosus (Probiotic) Cap PO SCH (08:57)
[2018-11-08] MEDS: Diltiazem 120 MG Cap.CD PO SCH (08:59)
[2018-11-08] MEDS ORDERED: CYANOCOBALAMIN PO SCH (09:00)
[2018-11-08] MEDS ORDERED: FLUCONAZOLE 200 MG PO SCH (09:00)
[2018-11-08] MEDS ORDERED: FOLIC AC PO SCH (09:00)
[2018-11-08] MEDS ORDERED: Non-Formulary Medication 1 Each (Ergocalciferol (Vitamin D2) [Vitamin D2] 2,000 UNIT) PO SCH (09:00)
[2018-11-08] MEDS ORDERED: [UNRECOGNIZED DRUG - OTHER] PO SCH (09:00)
[2018-11-08] MEDS ORDERED: Aspirin 81 MG Tab.EC PO SCH (09:00)
[2018-11-08] MEDS ORDERED: Levofloxacin 500 MG Tab PO SCH (09:00)
[2018-11-08] MEDS ORDERED: Diltiazem IR 30 MG Tab PO ONE (09:00)
[2018-11-08] MEDS ORDERED: VIT B6 PO SCH (09:00)
[2018-11-08] MEDS ORDERED: DEFERASIROX PO SCH ×2 (09:00→10:30)
[2018-11-08] MEDS ORDERED: Non-Formulary Medication 1 Each (L.Acidoph,Paracasei, B.Lactis [Probiotic] 1 CAP) PO SCH (09:00)
[2018-11-08] MEDS ORDERED: Non-Formulary Medication 1 Each (Levothyroxine Sodium [Synthroid] 150 MCG) PO SCH (09:00)
[2018-11-08] MEDS: Sodium Chloride 0.9% 20 ML SDV FLUSH SCH (09:39)
[2018-11-08] MEDS ORDERED: Patient's Own Medication 1 Each PO SCH (10:30)
[2018-11-08] MEDS: Triamcinolone Acetonide 0.1% Oint 15 GM Tube TOP SCH ×3 (10:44→20:59)
[2018-11-08] MEDS: DEFERASIROX PO SCH (10:51)
[2018-11-08] MEDS: Rivaroxaban 10 MG Tab PO SCH (13:50)
[2018-11-09] MEDS: Sodium Chloride 0.9% 20 ML SDV FLUSH SCH ×3 (00:07→20:55)
[2018-11-09] MEDS: Levothyroxine 75 MCG Tab PO SCH (07:51)
[2018-11-09] MEDS: Fluconazole 100 MG Tab PO SCH (08:59)
[2018-11-09] MEDS: Cholecalciferol (Vitamin D3) 1,000 Unit Tab PO SCH (08:59)
[2018-11-09] MEDS: Aspirin 81 MG Tab.EC PO SCH (08:59)
[2018-11-09] MEDS: B.Bifidum/B.Longum/L.Acidophilus/L.Rhamnosus (Probiotic) Cap PO SCH (08:59)
[2018-11-09] MEDS: Vitamin B Complex Tab PO SCH (08:59)
[2018-11-09] MEDS: Docusate Sodium 100 MG Cap PO SCH ×2 (09:00→20:52)
[2018-11-09] MEDS: Diltiazem 120 MG Cap.CD PO SCH (09:00)
[2018-11-09] MEDS: Levofloxacin 500 MG Tab PO SCH (09:03)
[2018-11-09] MEDS: Triamcinolone Acetonide 0.1% Oint 15 GM Tube TOP SCH ×3 (09:07→20:57)
[2018-11-09] MEDS: DEFERASIROX PO SCH (10:13)
--- NOTE | 2018-11-09 10:37 | US ---
[id number] US/US Arterial Doppler LE [place] Exam: US Arterial Doppler LE [place] Clinical Data: LOWER EXTREMITY CYANOSIS. ULCERATION. COMPARISON: CORRELATION IS MADE WITH THE EXAM OF JUNE 27, 2018. FINDINGS: There is no abnormality of color Doppler, waveforms, or velocities. IMPRESSION: NO DISCRETE ABNORMALITY. Mikael Butron MD 11/09/18 1036 Thank you for allowing us to participate in the care of your patient.
[2018-11-09] MEDS: Rivaroxaban 10 MG Tab PO SCH (12:53)
[2018-11-09] MEDS ORDERED: Rivaroxaban 10 MG Tab ONE (12:58)
[2018-11-10] MEDS: Levothyroxine 75 MCG Tab PO SCH (07:37)
[2018-11-10] MEDS ORDERED: Magnesium Citrate Solution 296 ML Bottle PO ONE (08:43)
[2018-11-10] MEDS: Fluconazole 100 MG Tab PO SCH (09:04)
[2018-11-10] MEDS: Aspirin 81 MG Tab.EC PO SCH (09:04)
[2018-11-10] MEDS: Vitamin B Complex Tab PO SCH (09:04)
[2018-11-10] MEDS: Cholecalciferol (Vitamin D3) 1,000 Unit Tab PO SCH (09:04)
[2018-11-10] MEDS: Levofloxacin 500 MG Tab PO SCH (09:04)
[2018-11-10] MEDS: Docusate Sodium 100 MG Cap PO SCH ×2 (09:04→21:40)
[2018-11-10] MEDS: B.Bifidum/B.Longum/L.Acidophilus/L.Rhamnosus (Probiotic) Cap PO SCH (09:04)
[2018-11-10] MEDS: Diltiazem 120 MG Cap.CD PO SCH (09:04)
[2018-11-10] MEDS: Sodium Chloride 0.9% 20 ML SDV FLUSH SCH ×2 (09:06→21:42)
[2018-11-10] MEDS: Triamcinolone Acetonide 0.1% Oint 15 GM Tube TOP SCH ×3 (09:08→21:41)
[2018-11-10 10:08] LABS: ANION GAP 12.5 mmol/L (5-15); CHLORIDE,CL 101 mmol/L (98-115); SODIUM,NA 140 mmol/L (136-145)
[2018-11-10] MEDS: DEFERASIROX PO SCH (10:55)
[2018-11-10] MEDS: Rivaroxaban 10 MG Tab PO SCH (13:22)
[2018-11-11] MEDS: Levothyroxine 75 MCG Tab PO SCH (06:35)
[2018-11-11] MEDS: Vitamin B Complex Tab PO SCH (08:03)
[2018-11-11] MEDS: Levofloxacin 500 MG Tab PO SCH (08:03)
[2018-11-11] MEDS: Fluconazole 100 MG Tab PO SCH (08:03)
[2018-11-11] MEDS: Cholecalciferol (Vitamin D3) 1,000 Unit Tab PO SCH (08:03)
[2018-11-11] MEDS: B.Bifidum/B.Longum/L.Acidophilus/L.Rhamnosus (Probiotic) Cap PO SCH (08:03)
[2018-11-11] MEDS: Docusate Sodium 100 MG Cap PO SCH (08:03)
[2018-11-11] MEDS: Aspirin 81 MG Tab.EC PO SCH (08:03)
[2018-11-11] MEDS: Sodium Chloride 0.9% 20 ML SDV FLUSH SCH (08:04)
[2018-11-11] MEDS: Triamcinolone Acetonide 0.1% Oint 15 GM Tube TOP SCH (10:00)
[2018-11-11] MEDS: Diltiazem 120 MG Cap.CD PO SCH (10:00)
[2018-11-11 10:01] VITALS: BP 93/58
[2018-11-11] MEDS: DEFERASIROX PO SCH (10:42)
--- NOTE | 2018-11-14 10:01 | DISCH ---
HOSPITAL COURSE: This is a patient who has been in swing bed since 11/07/2018. Prior to that time, she was admitted to acute care for a new-onset of atrial fibrillation with rapid ventricular response. She was transferred to swing bed on 11/07/2018. She had started on Cardizem CD 120 mg daily. She was in sinus rhythm initially, however, converted back into atrial fibrillation, but her rate is now well controlled. She had peripheral Doppler studies of her lower extremities due to cyanosis of the lower extremities as well as some ulcerations of the distal aspects of her toes. The arterial study was normal. She had an echocardiogram performed on 11/09/2018, with results pending. She has been evaluated and seen by Physical Therapy on a daily basis and has made significant improvement. She has remained hemodynamically stable. Her appetite has been good and she feels ready to be discharged. She has a history of myelodysplastic syndrome. She did receive 2 units of packed RBCs on 11/03/2018. Her hemoglobin has been staying stable and was 9.6 yesterday. The patient had significantly elevated liver function tests. On admission to acute care, these are trending downward and normalizing. There is a question whether she had possibly a non-ST elevation myocardial infarction with elevated troponins. Her troponins did trend downward and normalized. She does have a Cardiology consult pending. She had hypomagnesemia, which improved with one dose of intravenous magnesium sulfate. I noticed now yesterday her magnesium is 1.6. She will be discharged on an oral magnesium supplement. She has a history of hypothyroidism with a dose adjustment of levothyroxine 2 weeks ago. She is due to have this performed again in 1 month. She had a T4 drawn on 11/05/2018, which was normal. As previously noted, she has had intermittent cyanosis of her lower extremities and some open sores on her toes, which have been treated with triamcinolone. She also has a right heel ulcer that she has been applying DuoDerm to. The peripheral arterial studies were normal. LABORATORY DATA: Pertinent lab data from yesterday shows an improved white count of 2.68, hemoglobin stable at 9.6. Chemistries show normal potassium and sodium at respectively. BUN and creatinine are 10 and 0.49 respectively. Calcium is low at 8.0. Magnesium is low at 1.6. Total bilirubin trending downward and is 1.6 today. AST is 41, previously 73, previously much higher than that. ALT is trending downward. It was 294 on 11/08 and yesterday was 200. BNP is 1350. PHYSICAL EXAMINATION: VITAL SIGNS: Temp is 97.7, pulse rate 100, respirations 20, blood pressure 96/61, O2 saturation 97% on room air. SKIN: Warm, somewhat ashen, dry to touch. CARDIAC: Reveals irregularly irregular rhythm with no murmur, click, or gallop is auscultated. LUNGS: Clear without rales, wheezes, or rhonchi. She does have soft abdomen with positive bowel sounds. She does have some mild pedal edema with some cyanotic type of features in a dependent position. She does have good posterior tibial and dorsalis pedis pulses. IMPRESSION: 1. New onset of atrial fibrillation with a controlled ventricular response. She is being discharged with oral Cardizem CD 120 mg daily. She did have an echocardiogram with the results pending on 11/10/2018. She will be discharged with oral Xarelto 20 mg daily. 2. Congestive heart failure. She does have an elevated BNP. She has had some doses of intravenous Lasix which have improved her weight considerably. It has also improved her edema. Weight was 144 on swing bed admission on 11/07, now is 138. When she was admitted to acute care, her weight was 137. 3. Myelodysplastic syndrome. Her hemoglobin is staying stable at 9.6 yesterday. She did receive 2 units of packed RBCs on her day of inpatient admission on 11/03/2018. 4. Elevated liver function tests, trending downward. The etiology is still somewhat unclear. 5. Possible non-ST elevation myocardial infarction with elevated troponin. Troponins have normalized. She will have a Cardiology consultation in the near future. 6. Hypomagnesemia. This did improve with an IV dose of magnesium sulfate. I am discharging her on magnesium sulfate 500 mg daily. 7. Hypothyroidism. TSH was elevated, however, T4 was normal. This will be checked in 1 month. 8. She did have some hematuria. This is most likely related to Xarelto. 9. Cyanosis of the lower extremities without vascular etiology. She will continue with triamcinolone to the distal aspects of the toes where there are open ulcerations. The patient's son, Eddie and her daughter, Rocio were at the bedside today. We did discuss discharge plan with Physical Therapy to continue 3 times a week. MEDICATIONS TO INCLUDE: Cardizem CD 120 mg daily, Xarelto 20 mg p.o. daily, and magnesium sulfate 500 mg in two 250 mg doses b.i.d. She will return to the clinic in 7-10 days. My findings were communicated with Dr. Alexa Rose, who is very familiar with the patient's condition and has seen her in the hospital as well. /[id number]/MODL
== END 2018-11-11 12:10 | disposition home or self-care (01) | DRG 282 ==
LOC: KA.MS 12:07
PROC: 30233N1 Transfusion of Nonautologous Red Blood Cells into Peripheral Vein, Percutaneous Approach (ICD-10-PCS; principal; 2018-11-07)
DX: I48.91 Unspecified atrial fibrillation (principal); I21.4 Non-ST elevation (NSTEMI) myocardial infarction; D46.9 Myelodysplastic syndrome, unspecified; E03.9 Hypothyroidism, unspecified; E83.42 Hypomagnesemia; R79.89 Other specified abnormal findings of blood chemistry; R31.9 Hematuria, unspecified; L97.509 Non-pressure chronic ulcer of other part of unspecified foot with unspecified severity; I95.9 Hypotension, unspecified; I50.9 Heart failure, unspecified; R23.0 Cyanosis
CPT/HCPCS: 36415; 80053; 83735; 83880; 85025; 85027; 93306; 93925; 97110-GP; 97162-GP; A9270-GY; J1642; J1940

== ENCOUNTER 2018-12-09 14:40 | Emergency (ER) | payer MEDICARE, BC ==
[2018-12-09] MEDS ORDERED: Sodium Chloride 0.9% 1,000 ML IV SCH (15:45)
--- NOTE | 2018-12-09 15:45 | EDM.PDOC ---
ED HPI GENERAL MEDICAL PROBLEM - General Chief Complaint: General Time Seen by Provider: 12/09/18 15:04 Source of Information: Reports: Patient, Provider (Dr. Vigil and Raya Lopez ) History Limitations: Reports: No Limitations - History of Present Illness INITIAL COMMENTS - FREE TEXT/NARRATIVE: Patient presents with general weakness especially in her legs. She gets quite weak fairly regularly due to anemia related to her Myelodisplastic Syndrome; her Hg usually ranges from 7.5 when she needs blood to 10.5 at the highest. She usually gets 2 units of PRBCs every 2 weeks and had one 5 days ago. She had gone 4 weeks before that. She thinks the weakness today is related to dehydration/hypovolemia rather than anemia since she had the recent infusion. I noticed an irregular rhythm on auscultation and she says she is in and out of A Fib and takes Xarelto. Talking with Dr. Vigil and Raya I learned that the A Fib diagnosis is quite recent. She also has CHF with EF 45-50% and no history of pulmonary edema but sometimes gets ankle edema. She also is chronically neutropenic with WBC of 1 typical. For this she is on Levaquin 500 mg qd and Fluconazole prophylaxis. legs Pain Score (Numeric/FACES): 3 - Related Data Allergies Allergy/AdvReac Type Severity Reaction Status Date / Time hydrocodone Allergy Diaphoresis Verified 12/09/18 15:16 pregabalin [From Lyrica] Allergy TIA Verified 12/09/18 15:16 acetaminophen [From Tylenol] AdvReac Mild Nausea and Verified 12/09/18 15:16 Vomiting Home Meds: Home Meds L.acidoph,Paracasei, B.lactis [Probiotic] 1 cap PO DAILY 02/11/15 [History] Levothyroxine Sodium [Synthroid] 150 mcg PO DAILY 03/25/16 [History] Aspirin [Ecotrin EC] 81 mg PO DAILY 04/26/17 [History] Cyanocobalamin/Folic AC/Vit B6 [Folic Acid-Vit B6-Vit B12] 1 each PO DAILY 05/19 [History] Fluconazole [Diflucan] 200 mg PO DAILY 05/19/18 [History] Levofloxacin 500 mg PO DAILY 05/19/18 [History] Deferasirox [Jadenu] 500 mg PO DAILY 11/03/18 [History] Ergocalciferol (Vitamin D2) [Vitamin D2] 2,000 unit PO DAILY 11/03/18 [History] Triamcinolone Acetonide [Triamcinolone Acetonide 0.1% Oint] 1 applic TOP TID 06/13 [History] Diltiazem [Cardizem CD] 120 mg PO DAILY #30 cap.cd 11/11/18 [Rx] Docusate Sodium [Colace] 100 mg PO BID cap 11/11/18 [Rx] Magnesium 250 mg PO BID #30 tablet 11/11/18 [Rx] Rivaroxaban [Xarelto] 20 mg PO 1300 #30 tablet 11/11/18 [Rx] Triamcinolone Acetonide [Triamcinolone Acetonide 0.1% Oint] 0 gm TOP TID tube 11/11/18 [Rx] Past Medical History HEENT History: Reports: Cataract, Impaired Vision Cardiovascular History: Reports: Afib, Heart Murmur, Hypertension, MO, Syncope Respiratory History: Reports: None Gastrointestinal History: Reports: Colon Polyp Other Gastrointestinal History: H Pylori Genitourinary History: Reports: None Other Genitourinary History: stress incontinence 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[employer]HER History: Reports: Fibroids, Musculoskeletal History: Reports: Arthritis, Fibromyalgia Neurological History: Reports: CVA Psychiatric History: Reports: None Endocrine/Metabolic History: Reports: Hypothyroidism Hematologic History: Reports: Anemia, Blood Transfusion(s), Other (See Below) Other Hematologic History: MDS Immunologic History: Reports: Immunosuppression Oncologic (Cancer) History: Reports: Other (See Below) Other Oncologic History: MDS Dermatologic History: Reports: Eczema - Infectious Disease History Infectious Disease History: Reports: Chicken Pox, Measles, Mumps, Pertussis ( Whooping Cough) - Past Surgical History Head Surgeries/Procedures: Reports: None HEENT Surgical History: Reports: Cataract Surgery Cardiovascular Surgical History: Reports: None Respiratory Surgical History: Reports: None GI Surgical History: Reports: Appendectomy, Cholecystectomy, Colonoscopy Female Surgical History: Reports: Hysterectomy, Salpingo-Oophorectomy, Tubal Ligation Endocrine Surgical History: Reports: Thyroidectomy Neurological Surgical History: Reports: None Musculoskeletal Surgical History: Reports: Arthroscopic Knee, Carpal Tunnel, Joint Replacement, Knee Replacement Oncologic Surgical History: Reports: Bone Marrow Aspiration Dermatological Surgical History: Reports: None Social & Family History - Family History Family Medical History: Noncontributory - Caffeine Use Caffeine Use: Reports: Coffee, Tea ED ROS GENERAL - Review of Systems Review Of Systems: See Below Constitutional: Reports: Weakness, Fatigue. Denies: Fever, Chills HEENT: Denies: Ear Pain, Throat Pain, Vision Change Respiratory: Reports: Shortness of Breath (mild, chronic). Denies: Cough Cardiovascular: Reports: Lightheadedness (some with the weakness but denies orthostatic lightheadedness). Denies: Chest Pain, Syncope GI/Abdominal: Denies: Abdominal Pain, Diarrhea, Vomiting : Denies: Dysuria, Flank Pain Musculoskeletal: Reports: No Symptoms Skin: Denies: Cyanosis, Jaundice, Mottled, Pallor, Diaphoresis Neurological: Denies: Confusion, Dizziness, Headache Psychiatric: Denies: Agitation, Anxiety, Confusion Hematologic/Lymphatic: Reports: Anemia (chronic due to MDS) ED EXAM, GENERAL - Physical Exam Exam: See Below Exam Limited By: No Limitations General Appearance: Alert, WD/WN, No Apparent Distress Eye Exam: Bilateral Eye: EOMI, Normal Inspection, PERRL Ears: Normal External Exam, Hearing Grossly Normal Nose: Normal Inspection, No Blood Throat/Mouth: Normal Inspection, Normal Lips, Normal Voice, No Airway Compromise Head: Atraumatic, Normocephalic Neck: Normal Inspection, Full Range of Motion Respiratory/Chest: No Respiratory Distress, Lungs Clear, Normal Breath Sounds, No Accessory Muscle Use Cardiovascular: No Edema, No Gallop, No JVD, No Murmur, Irregularly Irregular GI/Abdominal: Normal Bowel Sounds, Soft, Non-Tender, No Organomegaly, No Distention, No Abnormal Bruit Back Exam: Normal Inspection, Full Range of Motion. No: CVA Tenderness (L), CVA Tenderness (R) Extremities: Normal Inspection, Normal Range of Motion, Non-Tender, No Pedal Edema Neurological: Alert, Oriented, Normal Cognition, No Motor/Sensory Deficits Psychiatric: Normal Affect, Normal Mood Skin Exam: Warm, Dry, Intact, Normal Color, No Rash Course - Vital Signs Last Recorded V/S: Last Vital Signs Temp 98.1 F 12/10/18 00:53 Pulse 83 12/10/18 00:53 Resp 18 12/10/18 00:53 BP 94/60 12/10/18 00:53 Pulse Ox 98 12/10/18 00:53 - Orders/Labs/Meds Labs: Laboratory Tests 12/09/18 12/09/18 12/09/18 Range/Units 15:45 15:45 15:45 WBC 2.11 L (5.00-10.00) 10^3/uL RBC 2.22 L (3.80-5.50) 10^6/uL Hgb 7.1 L (12.0-16.0) g/dL Hct 21.1 L (37.0-47.0) % MCV 95.0 H (82.0-92.0) fL MCH 32.0 H (27.0-31.0) pg MCHC 33.6 (32.0-36.0) g/dL RDW 16.7 H (11.5-14.5) % Plt Count 137 L (150-400) 10^3/uL MPV 12.1 H (7.4-10.4) fL Immature Gran % (Auto) 0.9 (0.0-5.0) % Neut % (Auto) 18.0 L (50.0-70.0) % Lymph % (Auto) 42.7 H (20.0-40.0) % Owsley % (Auto) 36.0 H (2.0-8.0) % Eos % (Auto) 0.0 L (1.0-3.0) % Baso % (Auto) 2.4 H (0.0-1.0) % Immature Gran # (Auto) 0.02 (0.00-0.50) 10^3/uL Neut # (Auto) 0.38 L (2.50-7.00) 10^3/uL Lymph # (Auto) 0.90 L (1.00-4.00) 10^3/uL [place]wsley # (Auto) 0.76 (0.10-0.80) 10^3/uL Eos # (Auto) 0.00 L (0.10-0.30) 10^3/uL Baso # (Auto) 0.05 (0.00-0.10) 10^3/uL Sodium 137 (136-145) mmol/L Potassium 3.5 (3.3-5.3) mmol/L Chloride 100 (98-115) mmol/L Carbon Dioxide 32.4 H (21.0-32.0) mmol/L Anion Gap 8.1 (5-15) mmol/L BUN 22 (6-25) mg/dL Creatinine 0.62 (0.51-1.17) mg/dL Est Cr Clr Drug Dosing 64.72 mL/min Estimated GFR (MDRD) > 60 mL/min Glucose 152 H (75 - 99) mg/dL Calcium 8.1 L (8.7-10.3) mg/dL Total Bilirubin 1.7 H (0.2-1.0) mg/dL AST 26 (15-37) U/L ALT 43 (12-78) U/L Alkaline Phosphatase 81 (46-116) IU/L Total Protein 5.1 L (6.4-8.2) g/dL Albumin 3.07 (3.00-4.80) g/dL TSH, Ultra Sensitive 2.590 (0.340-4.820) uIU/mL Blood Type Gel Antibody Screen Crossmatch 12/09/18 Range/Units 15:45 WBC (5.00-10.00) 10^3/uL RBC (3.80-5.50) 10^6/uL Hgb (12.0-16.0) g/dL Hct (37.0-47.0) % MCV (82.0-92.0) fL MCH (27.0-31.0) pg MCHC (32.0-36.0) g/dL RDW (11.5-14.5) % Plt Count (150-400) 10^3/uL MPV (7.4-10.4) fL Immature Gran % (Auto) (0.0-5.0) % Neut % (Auto) (50.0-70.0) % Lymph % (Auto) (20.0-40.0) % [place]ws[place] % (Auto) (2.0-8.0) % Eos % (Auto) (1.0-3.0) % Baso % (Auto) (0.0-1.0) % Immature Gran # (Auto) (0.00-0.50) 10^3/uL Neut # (Auto) (2.50-7.00) 10^3/uL Lymph # (Auto) (1.00-4.00) 10^3/uL Owsley # (Auto) (0.10-0.80) 10^3/uL Eos # (Auto) (0.10-0.30) 10^3/uL Baso # (Auto) (0.00-0.10) 10^3/uL Sodium (136-145) mmol/L Potassium (3.3-5.3) mmol/L Chloride (98-115) mmol/L Carbon Dioxide (21.0-32.0) mmol/L Anion Gap (5-15) mmol/L BUN (6-25) mg/dL Creatinine (0.51-1.17) mg/dL Est Cr Clr Drug Dosing mL/min Estimated GFR (MDRD) mL/min Glucose (75 - 99) mg/dL Calcium (8.7-10.3) mg/dL Total Bilirubin (0.2-1.0) mg/dL AST (15-37) U/L ALT (12-78) U/L Alkaline Phosphatase (46-116) IU/L Total Protein (6.4-8.2) g/dL Albumin (3.00-4.80) g/dL TSH, Ultra Sensitive (0.340-4.820) uIU/mL Blood Type O POSITIVE Gel Antibody Screen Negative Crossmatch See Detail Meds: Medications Discontinued Medications Generic Name Dose Route Start Last Admin Trade Name Kevinq PRN Reason Stop Dose Admin Acetaminophen 1,000 mg 12/09/18 18:10 12/09/18 18:12 Tylenol Extra Strength PO 12/09/18 18:11 1,000 mg ONETIME ONE Administration Diphenhydramine HCl 25 mg 12/09/18 17:28 12/09/18 18:13 Benadryl PO 12/09/18 17:29 25 mg ONETIME ONE Administration Heparin Sodium (Porcine) 500 units 12/09/18 17:30 12/10/18 00:54 Heparin Lock Flush 100 Units/Ml FLUSH 12/09/18 17:31 Not Given ASDIRECTED ONE Heparin Sodium (Porcine) Confirm 12/10/18 00:43 12/10/18 00:58 Heparin Lock Flush 100 Units/Ml Administered 12/10/18 00:44 500 units Dose Administration 500 units .ROUTE .STK-MED ONE Sodium Chloride 1,000 mls @ 500 mls/hr 12/09/18 15:45 12/09/18 16:08 Normal Saline IV 500 mls/hr ASDIRECTED ERLIN Administration Sodium Chloride 20 ml 12/09/18 22:00 Saline Flush FLUSH Q8HR ERLIN - Re-Assessments/Exams Free Text/Narrative Re-Assessment/Exam: 12/09/18 16:28 Hg 7.1 which is quite surprising to patient with the recent transfusion, but she would like to transfuse today if possible since she is so weak. I also discussed this with Dr. Vigil and will transfuse today. We are running saline at 500/hr now and will start PRBCs as soon as they are available. Patient is stable. Departure - Departure Time of Disposition: 09:49 Disposition: Home, Self-Care 01 Condition: Good Clinical Impression: Chronic anemia, General weakness, MDS (myelodysplastic syndrome) - Discharge Information Referrals: Alexa Suero MD [Primary Care Provider] - Forms: ED Department Discharge Additional Instructions: 1. Continue your regular medications and protocols. 2. Follow up as usual for your transfusions. 3. Follow up with your PCP if needed vs ER.
[2018-12-09 16:18] LABS: ANION GAP 8.1 mmol/L (5-15); CHLORIDE,CL 100 mmol/L (98-115); SODIUM,NA 137 mmol/L (136-145)
[2018-12-09] MEDS ORDERED: Acetaminophen 325 MG Tab PO ONE (17:27)
[2018-12-09] MEDS ORDERED: diphenhydrAMINE 25 MG Cap PO ONE (17:28)
[2018-12-09] MEDS ORDERED: Acetaminophen 500 MG Tab PO ONE (18:10)
[2018-12-09] MEDS ORDERED: Sodium Chloride 0.9% 10 ML Syringe FLUSH SCH (22:00)
[2018-12-10 01:28] VITALS: BP 94/60
== END 2018-12-10 01:06 | disposition home or self-care (01) ==
LOC: KA.ED 14:40
DX: D46.9 Myelodysplastic syndrome, unspecified (principal); R53.1 Weakness; I48.91 Unspecified atrial fibrillation; I10 Essential (primary) hypertension; I25.2 Old myocardial infarction; E03.9 Hypothyroidism, unspecified; Z88.5 Allergy status to narcotic agent; Z88.8 Allergy status to other drugs, medicaments and biological substances; Z79.899 Other long term (current) drug therapy
CPT/HCPCS: 36430; 80053; 84443; 85025; 86850; 86900; 86901; 86920; 86922; 96361; 96374; 99284; 99285-25; A9270-GY; J1642; J7030; P9016

== ENCOUNTER 2019-03-28 15:10 | Emergency (ER) | payer MEDICARE, BC ==
--- NOTE | 2019-03-28 16:03 | EDM.PDOC ---
<RebekaBandar D - Last Filed: 03/28/19 15:55> ED HPI GENERAL MEDICAL PROBLEM - General Chief Complaint: Neuro Symptoms/Deficits Time Seen by Provider: 03/28/19 15:40 Source of Information: Reports: Patient History Limitations: Reports: No Limitations - History of Present Illness INITIAL COMMENTS - FREE TEXT/NARRATIVE: Patient presents with weakness of right foot (foot drop) that started Wednesday morning, about 56 hours ago. She has also felt partially numb in that foot since then. She also has noticed a feeling in her eyes that she can't explain. She says her vision is good and normal but a feeling she can't describe well, but no pain. She has paroxysmal A Fib and takes Xarelto. She also has Myelodysplastic Syndrome and treats at the [facility]. She denies any injury. - Related Data Allergies Allergy/AdvReac Type Severity Reaction Status Date / Time hydrocodone Allergy Diaphoresis Verified 03/28/19 15:43 pregabalin [From Lyrica] Allergy TIA Verified 03/28/19 15:43 acetaminophen [From Tylenol] AdvReac Mild Nausea and Verified 03/28/19 15:43 Vomiting Home Meds: Home Meds L.acidoph,Paracasei, B.lactis [Probiotic] 1 cap PO DAILY 02/11/15 [History] Levothyroxine Sodium [Synthroid] 150 mcg PO DAILY 03/25/16 [History] Cyanocobalamin/Folic AC/Vit B6 [Folic Acid-Vit B6-Vit B12] 1 each PO DAILY 05/19 [History] Fluconazole [Diflucan] 200 mg PO DAILY 05/19/18 [History] Deferasirox [Jadenu] 500 mg PO DAILY 11/03/18 [History] Ergocalciferol (Vitamin D2) [Vitamin D2] 2,000 unit PO DAILY 11/03/18 [History] Diltiazem [Cardizem CD] 120 mg PO DAILY #30 cap.cd 11/11/18 [Rx] Docusate Sodium [Colace] 100 mg PO BID cap 11/11/18 [Rx] Magnesium 250 mg PO BID #30 tablet 11/11/18 [Rx] cycloSPORINE, Modified [Neoral] 100 mg PO BEDTIME 01/02/19 [History] cycloSPORINE, Modified [Neoral] 200 mg PO DAILY 01/02/19 [History] Apixaban [Eliquis] 2.5 mg PO DAILY 03/28/19 [History] Past Medical History HEENT History: Reports: Cataract, Impaired Vision Cardiovascular History: Reports: Afib, Heart Murmur, Hypertension, [place], Syncope Respiratory History: Reports: None Gastrointestinal History: Reports: Colon Polyp Other Gastrointestinal History: H Pylori Genitourinary History: Reports: None Other Genitourinary History: stress incontinence 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, Musculoskeletal History: Reports: Arthritis, Fibromyalgia Neurological History: Reports: CVA Psychiatric History: Reports: None Endocrine/Metabolic History: Reports: Hypothyroidism Hematologic History: Reports: Anemia, Blood Transfusion(s), Other (See Below) Other Hematologic History: MDS Immunologic History: Reports: Immunosuppression Oncologic (Cancer) History: Reports: Other (See Below) Other Oncologic History: MDS Dermatologic History: Reports: Eczema - Infectious Disease History Infectious Disease History: Reports: Chicken Pox, Measles, Mumps, Pertussis ( Whooping Cough) - Past Surgical History Head Surgeries/Procedures: Reports: None HEENT Surgical History: Reports: Cataract Surgery Cardiovascular Surgical History: Reports: None Respiratory Surgical History: Reports: None GI Surgical History: Reports: Appendectomy, Cholecystectomy, Colonoscopy Female Surgical History: Reports: Hysterectomy, Salpingo-Oophorectomy, Tubal Ligation Endocrine Surgical History: Reports: Thyroidectomy Neurological Surgical History: Reports: None Musculoskeletal Surgical History: Reports: Arthroscopic Knee, Carpal Tunnel, Joint Replacement, Knee Replacement Oncologic Surgical History: Reports: Bone Marrow Aspiration Dermatological Surgical History: Reports: None Social & Family History - Family History Family Medical History: Noncontributory - Caffeine Use Caffeine Use: Reports: Coffee, Tea ED ROS GENERAL - Review of Systems Review Of Systems: See Below Constitutional: Reports: Weakness (right foot). Denies: Fever, Chills, Malaise HEENT: Denies: Ear Pain, Eye Discharge, Eye Pain, Throat Pain, Vision Change Respiratory: Denies: Shortness of Breath, Cough Cardiovascular: Denies: Chest Pain, Lightheadedness, Syncope Endocrine: Denies: Fatigue GI/Abdominal: Denies: Abdominal Pain, Diarrhea, Vomiting : Denies: Dysuria, Flank Pain Musculoskeletal: Denies: Neck Pain, Shoulder Pain, Arm Pain, Back Pain, Hand Pain, Leg Pain, Foot Pain Skin: Denies: Cyanosis, Jaundice, Mottled, Pallor, Diaphoresis Neurological: Denies: Confusion, Dizziness, Headache, Seizure, Syncope, Trouble Speaking, Difficulty Walking (not difficult but notices she slaps her right foot down with walking the last two days) Psychiatric: Denies: Agitation, Anxiety, Confusion Hematologic/Lymphatic: Reports: Anemia (gets transfusions regularly) ED EXAM, NEURO - Physical Exam Exam: See Below Exam Limited By: No Limitations General Appearance: Alert, WD/WN, No Apparent Distress Eye Exam: Bilateral Eye: EOMI, Normal Inspection (full visual morocho bilat), PERRL Ears: Normal External Exam, Hearing Grossly Normal Nose: Normal Inspection, No Blood Throat/Mouth: Normal Inspection, Normal Lips, Normal Voice, No Airway Compromise , Other (no facial droop or slurred speech) Head Exam: Atraumatic, Normocephalic Neck: Normal Inspection, Supple, Non-Tender, Full Range of Motion Respiratory/Chest: No Respiratory Distress, Lungs Clear, Normal Breath Sounds, No Accessory Muscle Use Cardiovascular: Regular Rate, Rhythm, No Edema, No Gallop, No Murmur GI/Abdominal: Normal Bowel Sounds, Soft, Non-Tender, No Organomegaly, No Distention Neurological: Alert, Normal Mood/Affect, CN II-XII Intact, Normal Plantar Flexion, Oriented x 3, Other (Dorsiflexion of right foot is mildly but noticeable). No: Straight Leg Raise (L), Straight Leg Raise (R) Back Exam: Normal Inspection, Full Range of Motion. No: Paraspinal Tenderness, Vertebral Tenderness Extremities: Normal Range of Motion, Non-Tender, No Pedal Edema, Other ( Dorsiflexion is slightly weaker on the right compared to the left, mild but noticeable. Plantar flexion is equal 5/5. Leg raise and flexion is equal 5/5. Arm and hand strength are equal 5/5.) Psychiatric: Normal Affect, Normal Mood Skin Exam: Warm, Dry, Intact, Normal Color, No Rash Course - Vital Signs Last Recorded V/S: Last Vital Signs Temp 96.8 F 03/28/19 15:15 Pulse 67 03/28/19 16:35 Resp 16 03/28/19 16:35 BP 107/73 03/28/19 16:35 Pulse Ox 97 03/28/19 16:35 - Orders/Labs/Meds Orders: Active Orders 24 hr Category Date Time Status EKG Documentation Completion [RC] ASDIRECTED Care 03/28/19 15:54 Active EKG Documentation Completion [RC] ASDIRECTED Care 03/28/19 15:55 Active EKG 12 Lead [EK] Routine Ther 03/28/19 15:54 Ordered - Re-Assessments/Exams Free Text/Narrative Re-Assessment/Exam: 03/28/19 16:[address] shows no acute intracranial process. Labs from [facility] today are okay. 03/28/19 16:34 AMELIE Sargent taking over now. Departure - Departure Disposition: Home, Self-Care 01 Clinical Impression: Transient weakness of lower extremity - Discharge Information Instructions: Weakness Referrals: Alexa Suero MD [Primary Care Provider] - Forms: ED Department Discharge Additional Instructions: Follow-up as scheduled with hematology on . Follow-up with Dr. Rose next week. Return to emergency room and sooner if symptoms worsen. <Mick Castanon - Last Filed: 03/28/19 16:51> Course - Re-Assessments/Exams Free Text/Narrative Re-Assessment/Exam: 03/28/19 16:46 Patient afebrile, nontoxic appearing, vital signs stable. Reassessment of right lower extremity shows minimal dorsal flexion weakness. No plantar flexion difference from left lower extremity. Patient states that years ago she did have trauma to right lower extremity and is unsure if this is truly a new event. No neuro focal deficit noted. Patient states that she has a follow- up appointment with hematology on . Consideration for MRI if symptoms continue. We'll have patient follow-up with Dr. Rose next week. Return to emergency department sooner if symptoms worsen. Departure - Departure Time of Disposition: 16:49 Condition: Good - Assessment/Plan Assessment:: Right foot weakness Plan: Follow-up with Dr. Rose
--- NOTE | 2019-03-28 16:08 | CT ---
[id number] CT/CT Head WO IV EXAM: CT Head WO IV CLINICAL DATA: NEUROLOGIC DEFICIT COMPARISON: CORRELATION IS MADE WITH THE EXAM OF JULY 12, 2017 FINDINGS: There is no mass or mass effect. There is no hemorrhage or hydrocephalus. There are no extra-axial fluid collections. There are no sites of abnormal attenuation. IMPRESSION: NO PLAIN CT EVIDENCE OF ACUTE INTRACRANIAL PROCESS. Mikael Burton MD 03/28/19 [id number] Thank you for allowing us to participate in the care of your patient.
[2019-03-28 16:35] VITALS: BP 107/73
== END 2019-03-28 17:00 | disposition home or self-care (01) ==
LOC: KA.ED 15:10
DX: M62.81 Muscle weakness (generalized) (principal); D46.9 Myelodysplastic syndrome, unspecified; E03.9 Hypothyroidism, unspecified; I25.2 Old myocardial infarction; I10 Essential (primary) hypertension; Z79.01 Long term (current) use of anticoagulants; Z88.5 Allergy status to narcotic agent; Z88.8 Allergy status to other drugs, medicaments and biological substances; Z88.6 Allergy status to analgesic agent; Z79.899 Other long term (current) drug therapy; Z86.73 Personal history of transient ischemic attack (TIA), and cerebral infarction without residual deficits
CPT/HCPCS: 70450; 93005; 99285-25

== ENCOUNTER 2019-05-22 18:40 | Inpatient (IN) | payer MEDICARE, BC ==
[2019-05-22] MEDS ORDERED: Sodium Chloride 0.9% 1,000 ML IV ONE (19:11)
[2019-05-22] MEDS: Sodium Chloride 0.9% 1,000 ML ONE ×2 (19:11→19:14)
--- NOTE | 2019-05-22 19:11 | EDM.PDOC ---
ED HPI GENERAL MEDICAL PROBLEM - General Stated Complaint: HYPOTENSION Time Seen by Provider: 05/22/19 18:49 Source of Information: Reports: Patient History Limitations: Reports: No Limitations - History of Present Illness INITIAL COMMENTS - FREE TEXT/NARRATIVE: Patient presents with tachycardia and chest heaviness. She says the heaviness and some dyspnea have been present since she awoke this morning 10+ hours ago. She isn't sure when the tachycardia started. She hasn't felt well all day. She says she has had A Fib episodes in the past but denies known VA. She has had one episode of racing heart before. Denies pain in neck, jaw, shoulders, arms. - Related Data Allergies Allergy/AdvReac Type Severity Reaction Status Date / Time hydrocodone Allergy Diaphoresis Verified 05/22/19 19:09 pregabalin [From Lyrica] Allergy TIA Verified 05/22/19 19:09 acetaminophen [From Tylenol] AdvReac Mild Nausea and Verified 05/22/19 19:09 Vomiting Home Meds: Home Meds Aidan.acidoph,Paracasei, B.lactis [Probiotic] 1 cap PO DAILY 02/11/15 [History] Levothyroxine Sodium [Synthroid] 150 mcg PO DAILY 03/25/16 [History] Ergocalciferol (Vitamin D2) [Vitamin D2] 2,000 unit PO DAILY 11/03/18 [History] cycloSPORINE, Modified [Neoral] 200 mg PO DAILY 01/02/19 [History] Apixaban [Eliquis] 2.5 mg PO DAILY 03/28/19 [History] Heparin Sodium,Porcine/PF [Heparin IV Flush 100 Units/ml] 100 unit IV ONETIME # 1 ml 04/05/19 [Rx] Docusate Sodium [Colace] 100 mg PO BEDTIME 05/22/19 [History] Furosemide 40 mg PO DAILY 05/22/19 [History] Magnesium 400 mg PO DAILY 05/22/19 [History] predniSONE [Prednisone] 20 mg PO DAILY 05/22/19 [History] Past Medical History HEENT History: Reports: Cataract, Impaired Vision Cardiovascular History: Reports: Afib, Heart Murmur, Hypertension, [place], Syncope Respiratory History: Reports: None Gastrointestinal History: Reports: Colon Polyp Other Gastrointestinal History: H Pylori Genitourinary History: Reports: None Other Genitourinary History: stress incontinence 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: Fibroids, Musculoskeletal History: Reports: Arthritis, Fibromyalgia Neurological History: Reports: CVA Psychiatric History: Reports: None Endocrine/Metabolic History: Reports: Hypothyroidism Hematologic History: Reports: Anemia, Blood Transfusion(s), Other (See Below) Other Hematologic History: MDS Immunologic History: Reports: Immunosuppression Oncologic (Cancer) History: Reports: Other (See Below) Other Oncologic History: MDS Dermatologic History: Reports: Eczema - Infectious Disease History Infectious Disease History: Reports: Chicken Pox, Measles, Mumps, Pertussis ( Whooping Cough) - Past Surgical History Head Surgeries/Procedures: Reports: None HEENT Surgical History: Reports: Cataract Surgery Cardiovascular Surgical History: Reports: None Respiratory Surgical History: Reports: None GI Surgical History: Reports: Appendectomy, Cholecystectomy, Colonoscopy Female Surgical History: Reports: Hysterectomy, Salpingo-Oophorectomy, Tubal Ligation Endocrine Surgical History: Reports: Thyroidectomy Neurological Surgical History: Reports: None Musculoskeletal Surgical History: Reports: Arthroscopic Knee, Carpal Tunnel, Joint Replacement, Knee Replacement Oncologic Surgical History: Reports: Bone Marrow Aspiration Dermatological Surgical History: Reports: None Social & Family History - Family History Family Medical History: Noncontributory - Caffeine Use Caffeine Use: Reports: Coffee, Tea ED ROS GENERAL - Review of Systems Review Of Systems: See Below Constitutional: Denies: Fever, Malaise, Weakness HEENT: Denies: Ear Pain, Vision Change Respiratory: Reports: Shortness of Breath. Denies: Cough Cardiovascular: Denies: Lightheadedness, Syncope Endocrine: Reports: Other (history of goiter surgery) GI/Abdominal: Denies: Abdominal Pain, Constipation, Diarrhea, Nausea, Vomiting : Denies: Dysuria, Flank Pain Musculoskeletal: Denies: Neck Pain, Shoulder Pain, Arm Pain, Back Pain Skin: Denies: Cyanosis, Jaundice, Mottled, Pallor, Diaphoresis Neurological: Denies: Confusion, Dizziness, Headache, Seizure, Syncope, Trouble Speaking, Difficulty Walking Psychiatric: Denies: Agitation, Anxiety, Confusion ED EXAM, GENERAL - Physical Exam Exam: See Below Exam Limited By: No Limitations General Appearance: Alert, WD/WN, No Apparent Distress Eye Exam: Bilateral Eye: EOMI, Normal Inspection, PERRL Ears: Normal External Exam, Hearing Grossly Normal Nose: Normal Inspection, No Blood Throat/Mouth: Normal Inspection, Normal Lips, Normal Voice, No Airway Compromise Head: Atraumatic, Normocephalic Neck: Normal Inspection, Supple, Non-Tender, Full Range of Motion. No: Carotid Bruit Respiratory/Chest: No Respiratory Distress, Lungs Clear, Normal Breath Sounds, No Accessory Muscle Use Cardiovascular: Normal Peripheral Pulses, No Edema, No Gallop, No JVD, No Murmur , Tachycardia (regular). No: Irregularly Irregular Peripheral Pulses: 2+: Carotid (L), Carotid (R), Radial (L), Radial (R), Dorsalis Pedis (L), Dorsalis Pedis (R) GI/Abdominal: Normal Bowel Sounds, Soft, Non-Tender, No Organomegaly, No Distention Back Exam: Normal Inspection, Full Range of Motion. No: CVA Tenderness (L), CVA Tenderness (R) Extremities: Normal Inspection, Normal Range of Motion, Non-Tender, No Pedal Edema, Slow Capillary Refill (delayed mildly in the tips of the toes only; she says this is normal for her.), Other (no calf swelling or tenderness) Neurological: Alert, Oriented, Normal Cognition, No Motor/Sensory Deficits Psychiatric: Normal Affect, Normal Mood Skin Exam: Warm, Dry, Intact, Normal Color, No Rash Course - Vital Signs Last Recorded V/S: Last Vital Signs Temp 96.9 F 05/22/19 18:40 Pulse 136 H 05/22/19 20:35 Resp 20 05/22/19 20:35 BP 100/53 L 05/22/19 20:35 Pulse Ox 96 05/22/19 19:18 - Orders/Labs/Meds Orders: Active Orders 24 hr Category Date Time Status Patient Status Manage Transfer [TRANSFER] Routine ADT 05/22/19 20:40 Ordered Patient Status [ADT] Routine ADT 05/22/19 20:39 Active EKG Documentation Completion [RC] ASDIRECTED Care 05/22/19 19:12 Active Sodium Chloride 0.9% [Normal Saline] 1,000 ml Med 05/22/19 20:45 Active IV ASDIRECTED EKG 12 Lead [EK] Routine Ther 05/22/19 19:11 Ordered Medication Orders Sodium Chloride (Normal Saline) 1,000 mls @ 100 mls/hr IV ASDIRECTED ERLIN Last Admin: 05/22/19 20:36 Dose: 100 mls/hr Labs: Laboratory Tests 05/22/19 05/22/19 Range/Units 19:00 19:00 WBC 4.25 L (5.00-10.00) 10^3/uL RBC 2.55 L (3.80-5.50) 10^6/uL Hgb 8.0 L (12.0-16.0) g/dL Hct 24.1 L (37.0-47.0) % MCV 94.5 H (82.0-92.0) fL MCH 31.4 H (27.0-31.0) pg MCHC 33.2 (32.0-36.0) g/dL RDW 14.4 (11.5-14.5) % Plt Count 161 (150-400) 10^3/uL MPV 13.0 H (7.4-10.4) fL Add Manual Diff Yes Neutrophils % (Manual) 6 L (50-70) % Lymphocytes % (Manual) 11 L (20-40) % Monocytes % (Manual) 29 H (2-8) % Eosinophils % (Manual) 0 L (1-3) % Basophils % (Manual) 0 (0-1) % Absolute Neutrophils 0.26 Lymphocytes # (Manual) 0.47 Monocytes # (Manual) 1.23 Nucleated RBCs 4 Sodium 138 (136-145) mmol/L Potassium 5.3 (3.3-5.3) mmol/L Chloride 101 (98-115) mmol/L Carbon Dioxide 24.1 (21.0-32.0) mmol/L Anion Gap 18.2 H (5-15) mmol/L BUN 61 H* (6-25) mg/dL Creatinine 1.38 H (0.51-1.17) mg/dL Est Cr Clr Drug Dosing 27.91 mL/min Estimated GFR (MDRD) 37 mL/min Glucose 189 H (75 - 99) mg/dL Calcium 8.6 L (8.7-10.3) mg/dL Troponin I 0.11 H* (0.00-0.070) ng/mL Meds: Medications Generic Name Dose Route Start Last Admin Trade Name Freq PRN Reason Stop Dose Admin Sodium Chloride 1,000 mls @ 100 mls/hr 05/22/19 20:45 05/22/19 20:36 Normal Saline IV 100 mls/hr ASDIRECTED ERLIN Administration Discontinued Medications Generic Name Dose Route Start Last Admin Trade Name Yinka PRN Reason Stop Dose Admin Diltiazem HCl 5 mg 05/22/19 20:33 05/22/19 20:39 Diltiazem IVPUSH 05/22/19 20:34 5 mg ONETIME ONE Administration Sodium Chloride Confirm 05/22/19 19:04 05/22/19 19:14 Normal Saline Administered 05/22/19 19:05 Not Given Dose 1,000 mls @ as directed .ROUTE .STK-MED ONE Sodium Chloride 1,000 mls @ 999 mls/hr 05/22/19 19:11 05/22/19 19:12 Normal Saline IV 05/22/19 20:11 999 mls/hr .BOLUS ONE Administration - Re-Assessments/Exams Free Text/Narrative Re-Assessment/Exam: 05/22/19 19:30 EKG shows SVT at 139 bpm. CXR is okay. WBC normal, Hgb is 8.0 which is pretty good for her. 05/22/19 20:34 Trop is 0.11, BUN and Creat are elevated slightly from her baseline. The troponin is not far above her baseline either and she had the same value in October when she was in with A Fib/RVR. HR is 135 and BP is 86/42. Discussed case with Dr. Vigil. This patient runs normal BP of 80's-90's systolic so Dr. Vigil feels diltiazem 5 mg IVP should be okay and can be repeated if BP tolerates it. 05/22/19 20:51 BP was 100/53 when the diltiazem was pushed and then dropped to 93/40 after 5 minutes. HR dropped from 133 to mid 70's within a minute of the diltiazem 5 mg. Please use this for admission H and P. 05/22/19 21:26 30+ minutes after the initial dose of diltiazem patient remained in 70's HR and adequate BP. Patient was admitted to inpatient status. Departure - Departure Time of Disposition: 20:59 Disposition: Admitted As Inpatient 66 Condition: Fair Clinical Impression: SVT (supraventricular tachycardia), Elevated troponin Hypotension Qualifiers: Hypotension type: unspecified hypotension type Qualified Code(s): I95.9 - Hypotension, unspecified Chronic renal disease Qualifiers: Chronic kidney disease stage: unspecified stage Qualified Code(s): N18.9 - Chronic kidney disease, unspecified - My Orders Last 24 Hours: My Active Orders 05/22/19 19:11 EKG 12 Lead [EK] Routine 05/22/19 19:12 EKG Documentation Completion [RC] ASDIRECTED 05/22/19 20:39 Patient Status [ADT] Routine 05/22/19 20:40 Patient Status Manage Transfer [TRANSFER] Routine 05/22/19 20:45 Sodium Chloride 0.9% [Normal Saline] 1,000 ml IV ASDIRECTED - Assessment/Plan Last 24 Hours: My Active Orders 05/22/19 19:11 EKG 12 Lead [EK] Routine 05/22/19 19:12 EKG Documentation Completion [RC] ASDIRECTED 05/22/19 20:39 Patient Status [ADT] Routine 05/22/19 20:40 Patient Status Manage Transfer [TRANSFER] Routine 05/22/19 20:45 Sodium Chloride 0.9% [Normal Saline] 1,000 ml IV ASDIRECTED
--- NOTE | 2019-05-22 19:35 | CR ---
[id number] RAD/RAD Chest PA And Lateral EXAM: FRONTAL AND LATERAL CHEST INDICATION: Dyspnea and chest heaviness. COMPARISON: November 03, 2018. DISCUSSION: A right internal jugular introduced port is in stable position tip overlying the SVC. No acute infiltrates. Borderline heart size. IMPRESSION: 1. No acute findings. Erick Lawrence MD 05/22/19 1934 Thank you for allowing us to participate in the care of your patient.
[2019-05-22 19:44] LABS: ANION GAP 18.2 mmol/L (5-15)
[2019-05-22] MEDS ORDERED: Diltiazem 25 MG/5 ML SDV IVPUSH ONE (20:33)
[2019-05-22] MEDS ORDERED: Sodium Chloride 0.9% 1,000 ML IV SCH (20:45)
[2019-05-22] MEDS ORDERED: Docusate Sodium 100 MG Cap **OWN MED PO ONE (22:45)
[2019-05-22] MEDS ORDERED: APIXABAN 2.5 MG PO ONE (22:45)
[2019-05-23] MEDS ORDERED: LEVOTHYROXINE SODIUM 150 MCG PO SCH (07:30)
[2019-05-23 08:27] LABS: ANION GAP 10.8 mmol/L (5-15)
[2019-05-23] MEDS: Levothyroxine 100 MCG Tab PO SCH (08:51)
[2019-05-23] MEDS ORDERED: APIXABAN 2.5 MG PO SCH (09:00)
[2019-05-23] MEDS ORDERED: MAGNESIUM 400 MG PO SCH (09:00)
[2019-05-23] MEDS ORDERED: PREDNISONE 10 MG PO SCH (09:00)
[2019-05-23] MEDS ORDERED: FUROSEMIDE 40 MG PO SCH (09:00)
[2019-05-23] MEDS ORDERED: diphenhydrAMINE 25 MG Cap PO ONE (09:23)
[2019-05-23] MEDS ORDERED: Sodium Chloride 0.9% 1,000 ML IV SCH (09:30)
[2019-05-23] MEDS ORDERED: Furosemide 40 MG Tab PO SCH (09:30)
[2019-05-23] MEDS ORDERED: Acetaminophen 500 MG Tab PO SCH (09:45)
[2019-05-23] MEDS: Apixaban 5 MG Tab PO SCH ×2 (09:51→21:06)
[2019-05-23] MEDS: predniSONE 20 MG Tab PO SCH (09:51)
[2019-05-23] MEDS: B.Bifidum/B.Longum/L.Acidophilus/L.Rhamnosus (Probiotic) Cap PO SCH (09:51)
[2019-05-23] MEDS: Metoprolol Succinate 25 MG Tab.ER PO SCH (09:56)
[2019-05-23] MEDS: CYCLOSPORINE 100 MG PO SCH ×2 (09:56→21:06)
[2019-05-23] MEDS ORDERED: Magnesium Oxide 500 MG Tab PO SCH (12:00)
--- NOTE | 2019-05-23 14:39 | PN ---
05/23/2019 PATIENT NAME: MEAGAN LOPEZ SUBJECTIVE: This is an 84-year-old female who was admitted through the emergency room last night. She presented with tachycardia and chest heaviness. She had some dyspnea as well. The patient states yesterday she pretty much slept the day away. She had not felt well. She does have a history of myelodysplastic syndrome and requires frequent transfusions. The patient did receive diltiazem 5 mg IV push, which converted a supraventricular tachycardia into a sinus rhythm. The patient is currently in normal sinus rhythm and is feeling quite a bit better. She did receive IV fluids. Hemoglobin yesterday was 8.0 and now is 6.3 today. She does have standing orders for 2 units of packed RBCs for hemoglobin less than 7.5. She will receive this today. Troponin has been elevated at 0.11 on admission, 0.09 at 8 o'clock last night, and 0.10 at 4:00 a.m. this morning. The patient does not have any chest pain at this time. I have discussed the elevated troponin with Dr. Alexa Rose. We have come to a collective conclusion that this may be a troponin leak due to the comorbidities that the patient has. She is being followed by Cardiology as well as Oncology. Her metal roaster is Dr. Floyd and her oncologist is Dr. Sanchez. The patient is feeling better with her pulse being normal. She denies any shortness of breath at this time. She does have an overall feeling of being tired. OBJECTIVE: VITAL SIGNS: Temperature is 97.9, pulse 78, respirations 18, blood pressure 95/42, O2 saturation is 94% on room air. SKIN: Pale, warm, dry to touch. CARDIAC: Reveals S1, S2 to be normal. Rate and rhythm are regular. No murmur, click, or gallop is auscultated. LUNGS: Clear without rales, wheezes, or rhonchi. ABDOMEN: Soft, nontender. Bowel sounds present in all 4 quadrants. EXTREMITIES: There is no pedal edema. IMPRESSION: 1. Supraventricular tachycardia converted into normal sinus rhythm after 1 dose of IV diltiazem. The patient seems to be stable and is normal sinus rhythm on the telemetry. 2. Myelodysplastic syndrome with anemia. She will receive 2 units of packed RBCs today. We will keep her in the hospital for at least 1 more day. If she remains stable, she may be discharged tomorrow or . /[id number]/MODL
[2019-05-23] MEDS ORDERED: Cholecalciferol (Vitamin D3) 25 MCG Tab PO SCH (21:00)
[2019-05-23] MEDS ORDERED: Docusate Sodium 100 MG Cap PO SCH (21:00)
[2019-05-24] MEDS: Levothyroxine 100 MCG Tab PO SCH (07:20)
[2019-05-24 07:30] LABS: ANION GAP 12.7 mmol/L (5-15)
[2019-05-24] MEDS: predniSONE 20 MG Tab PO SCH (08:20)
[2019-05-24] MEDS: Apixaban 5 MG Tab PO SCH (08:20)
[2019-05-24] MEDS: B.Bifidum/B.Longum/L.Acidophilus/L.Rhamnosus (Probiotic) Cap PO SCH (08:20)
[2019-05-24] MEDS: Metoprolol Succinate 25 MG Tab.ER PO SCH (08:23)
[2019-05-24] MEDS: CYCLOSPORINE 100 MG PO SCH ×2 (08:24→09:24)
[2019-05-24 08:25] VITALS: BP 131/63; PULSE 66
--- NOTE | 2019-05-24 09:00 | PCM.DCSUM1 ---
Discharge Summary - Hospital Course Free Text/Narrative:: Admission: 05/22/19 Discharge: 05/24/19 Disposition: Home Admission diagnosis: SVT, rate 140's MDS, transfusion dependent Hypothyroidism Acute renal insufficiency A-fib Discharge diagnoses: SVT, resolved MDS, transfusion dependent Hypothyroidism Acute renal insufficiency, improving A-fib Dodie is a pleasant 84 year old female who presented to the emergency department with fatigue and chest heaviness. EKG demonstrated SVT, not clearly a-fib, with a rate of 140's. She does have a hx of a-fib and is on anticoagulation with Eliquis and she is also on metoprolol. Troponin was mildly elevated at 0.11 but she has a hx of chronic troponin elevation and this was not felt to be consistent with a NSTEMI. Her blood pressure was 88/49, which is lower than she usually runs. I, Dr. Rose, was consulted about her case and recommended she be given diltiazem 5 mg IV x 1 dose and see what her rate did. This single dose brought her HR down to the 70's. She has some CKD and her BUN and creatinine were 61 and 1.38 respectively, which is slightly higher than she usually runs. She received 1L of NS and then had NS running at 100 cc per hour. Her initial hemoglobin was 8.0, which was likely hemoconcentrated as her hgb on 05/23/19 was 6.3. She received 2 units PRBC's per standing orders from oncology for her MDS and at discharge her hemoglobin was 9.5. Her IVF's were discontinued when she was receiving her transfusion. Her BUN and creatinine at the time of discharge were 44 and 1.03 respectively. She has been started on cyclosporine for her MDS, she will have a trough level done prior to discharge. She is feeling well at the time of discharge, back to her baseline. There are no medication changes or changes in therapies. Will communicate all this to her oncologist. Diagnosis: Stroke: No Modified Fajardo Scale: No Signif.Disability Despite Sympt.Able to Carry Out Usual Act./Duties Modified Fajardo Scale Score: 1 - Discharge Data Discharge Date: 05/24/19 Discharge Disposition: Home, Self-Care 01 Condition: Fair - Referral to Home Health Primary Care Physician: Alexa Suero MD - Patient Summary/Data Labs Pending at D/C: Cyclosporine level - Patient Instructions Diet: Regular Diet as Tolerated - Discharge Plan *PRESCRIPTION DRUG MONITORING PROGRAM REVIEWED*: Not Applicable *COPY OF PRESCRIPTION DRUG MONITORING REPORT IN PATIENT JAISON: Not Applicable Home Medications: Home Meds LGlenacidoph,Paracelliotti, B.lactis [Probiotic] 1 cap PO DAILY 02/11/15 [History] Levothyroxine Sodium [Synthroid] 150 mcg PO DAILY 03/25/16 [History] Ergocalciferol (Vitamin D2) [Vitamin D2] 2,000 unit PO DAILY 11/03/18 [History] cycloSPORINE, Modified [Neoral] 200 mg PO Q12HR 01/02/19 [History] Apixaban [Eliquis] 2.5 mg PO BID 03/28/19 [History] Heparin Sodium,Porcine/PF [Heparin IV Flush 100 Units/ml] 100 unit IV ONETIME # 1 ml 04/05/19 [Rx] Docusate Sodium [Colace] 100 mg PO BEDTIME 05/22/19 [History] Furosemide 40 mg PO DAILY 05/22/19 [History] Magnesium 400 mg PO DAILY 05/22/19 [History] predniSONE [Prednisone] 20 mg PO DAILY 05/22/19 [History] Metoprolol Succinate [Toprol XL] 25 mg PO DAILY tab.er 05/24/19 [Rx] Forms: ED Department Discharge Referrals: Alexa Suero MD [Primary Care Provider] - - Discharge Summary/Plan Comment DC Time >30 min.: No - Patient Data Vitals - Most Recent: Last Vital Signs Temp 97.0 F 05/24/19 06:53 Pulse 66 05/24/19 08:23 Resp 16 05/24/19 06:53 BP 131/63 05/24/19 08:23 Pulse Ox 98 05/24/19 06:53 Weight - Most Recent: 125 lb 8 oz I&O - Last 24 hours: Intake & Output 05/23/19 05/24/19 05/24/19 22:59 06:59 14:59 Intake Total 597 200 Balance 597 200 Lab Results - Last 24 hrs: Laboratory Results - last 24 hr 05/23/19 05/24/19 05/24/19 Range/Units 07:45 07:00 07:00 WBC 3.17 L (5.00-10.00) 10^3/uL RBC 3.12 L (3.80-5.50) 10^6/uL Hgb 9.5 L D (12.0-16.0) g/dL Hct 28.8 L (37.0-47.0) % MCV 92.3 H (82.0-92.0) fL MCH 30.4 (27.0-31.0) pg MCHC 33.0 (32.0-36.0) g/dL RDW 13.8 (11.5-14.5) % Plt Count 143 L (150-400) 10^3/uL MPV 12.2 H (7.4-10.4) fL Add Manual Diff Yes Neutrophils % (Manual) 40 L (50-70) % Band Neutrophils % 2 L (4-12) % Lymphocytes % (Manual) 26 (20-40) % Monocytes % (Manual) 30 H (2-8) % Basophils % (Manual) 2 H (0-1) % Absolute Neutrophils 1.3314 Lymphocytes # (Manual) 0.8242 Monocytes # (Manual) 0.9510 Basophils # (Manual) 0.0634 Sodium 140 (136-145) mmol/L Potassium 5.0 (3.3-5.3) mmol/L Chloride 106 (98-115) mmol/L Carbon Dioxide 26.3 (21.0-32.0) mmol/L Anion Gap 12.7 (5-15) mmol/L BUN 44 H (6-25) mg/dL Creatinine 1.03 (0.51-1.17) mg/dL Est Cr Clr Drug Dosing 37.84 mL/min Estimated GFR (MDRD) 51 mL/min Glucose 106 H (75 - 99) mg/dL Calcium 8.9 (8.7-10.3) mg/dL Total Bilirubin 2.7 H (0.2-1.0) mg/dL AST 20 (15-37) U/L ALT 45 (12-78) U/L Alkaline Phosphatase 61 (46-116) IU/L Total Protein 5.5 L (6.4-8.2) g/dL Albumin 2.80 L (3.00-4.80) g/dL Blood Type O POSITIVE Gel Antibody Screen Negative Crossmatch See Detail Med Orders - Current: Current Medications Apixaban (Eliquis) 2.5 mg PO BID [facility] Last Admin: 05/24/19 08:20 Dose: 2.5 mg Cholecalciferol (Vitamin D3) 25 mcg PO DAILY@2100 [facility] Last Admin: 05/23/19 21:06 Dose: 25 mcg Docusate Sodium (Colace) 100 mg PO BEDTIME [facility] Last Admin: 05/23/19 21:05 Dose: 100 mg Furosemide (Lasix) 40 mg PO DAILY [facility] Last Admin: 05/24/19 08:21 Dose: 40 mg Sodium Chloride (Normal Saline) 1,000 mls @ 50 mls/hr IV ASDIRECTED [facility] Last Admin: 05/23/19 11:16 Dose: 50 mls/hr Lactobacillus Acidophilus/Rhamnosus (Multi-Sharon Plus) 1 cap PO DAILY [facility] Last Admin: 05/24/19 08:20 Dose: 1 cap Levothyroxine Sodium (Synthroid) 150 mcg PO ACBREAKFAST [facility] Last Admin: 05/24/19 07:20 Dose: 150 mcg Magnesium Oxide (Magnesium Oxide) 500 mg PO DAILY@1200 [facility] Last Admin: 05/23/19 11:54 Dose: 500 mg Metoprolol Succinate (Toprol Xl) 25 mg PO DAILY [facility] Last Admin: 05/24/19 08:23 Dose: 25 mg Cyclosporine Capsule [Modified] 100mg - Ptom 2 each PO Q12H [facility] Last Admin: 05/24/19 08:24 Dose: Not Given Prednisone (Prednisone) 20 mg PO DAILY [facility] Last Admin: 05/24/19 08:20 Dose: 20 mg Discontinued Medications Acetaminophen (Tylenol Extra Strength) 1,000 mg PO ONETIME [facility] Stop: 05/23/19 12:00 Last Admin: 05/23/19 10:10 Dose: 1,000 mg Diltiazem HCl (Diltiazem) 5 mg IVPUSH ONETIME ONE Stop: 05/22/19 20:34 Last Admin: 05/22/19 20:39 Dose: 5 mg Diphenhydramine HCl (Benadryl) 25 mg PO ONETIME ONE Stop: 05/23/19 09:24 Last Admin: 05/23/19 10:10 Dose: 25 mg Docusate Sodium (Colace) 100 mg PO ONETIME ONE Stop: 05/22/19 22:46 Last Admin: 05/22/19 22:43 Dose: Not Given Furosemide (Lasix) 40 mg PO DAILY [facility] Sodium Chloride (Normal Saline) Confirm Administered Dose 1,000 mls @ as directed .ROUTE .STK-MED ONE Stop: 05/22/19 19:05 Last Admin: 05/22/19 19:14 Dose: Not Given Sodium Chloride (Normal Saline) 1,000 mls @ 999 mls/hr IV .BOLUS ONE Stop: 05/22/19 20:11 Last Admin: 05/22/19 19:12 Dose: 999 mls/hr Sodium Chloride (Normal Saline) 1,000 mls @ 100 mls/hr IV ASDIRECTED [facility] Last Admin: 05/22/19 20:36 Dose: 100 mls/hr (Apixaban [Eliquis] (2.5 Mg)Own Med) 2.5 mg PO BID [facility] (Cyclosporine, Modified 100 Mg) *Own Med 200 mg PO Q12H [facility] (Vitamin D2) [ Vitamin D2] 1,000 Unit) Own Med 2,000 unit PO DAILY [facility] (L.Acidoph,Paracasei , B.Lactis [ Probiotic] 1 Cap) Own Med 1 cap PO DAILY [facility] (Levothyroxine Sodium [Synthroid] 150 Mcg)Own Med * 150 mcg PO ACBREAKFAST [facility] Last Admin: 05/23/19 09:04 Dose: Not Given (Magnesium [ Magnesium] 400 Mg) *Own Med 400 mg PO DAILY [facility] (Apixaban [Eliquis] (2.5 Mg)Own Med) 2.5 mg PO ONETIME ONE Stop: 05/22/19 22:46 Last Admin: 05/22/19 22:43 Dose: 2.5 mg (Cyclosporine, Modified 100 Mg) *Own Med 200 mg PO ONETIME ONE Stop: 05/22/19 22:46 Last Admin: 05/22/19 22:44 Dose: 200 mg (Vitamin D2) [ Vitamin D2] 1,000 Unit) Own Med 0 unit PO ONETIME ONE Stop: 05/22/19 22:46 Last Admin: 05/22/19 22:47 Dose: 1,000 unit Prednisone (Prednisone) 20 mg PO DAILY [facility] - Exam General: Reports: Alert, Oriented, Cooperative, No Acute Distress Lungs: Reports: Clear to Auscultation, Normal Respiratory Effort Cardiovascular: Reports: No Murmurs, Irregular Rhythm GI/Abdominal Exam: Normal Bowel Sounds
[2019-05-24] MEDS ORDERED: Sodium Chloride 0.9% 20 ML SDV FLUSH ONE (09:02)
== END 2019-05-24 11:00 | disposition home or self-care (01) | DRG 310 ==
LOC: KA.ED 18:40 → KA.MS 20:39 → UNDOADMIN 21:05
PROVIDERS: ADMIT Internal Medicine; ATTEND Internal Medicine
PROC: 30233N1 Transfusion of Nonautologous Red Blood Cells into Peripheral Vein, Percutaneous Approach (ICD-10-PCS; principal; 2019-05-23)
DX: I47.1 Supraventricular tachycardia (principal); R79.89 Other specified abnormal findings of blood chemistry; I95.9 Hypotension, unspecified; I48.91 Unspecified atrial fibrillation; H54.7 Unspecified visual loss; I10 Essential (primary) hypertension; I12.9 Hypertensive chronic kidney disease with stage 1 through stage 4 chronic kidney disease, or unspecified chronic kidney disease; M19.91 Primary osteoarthritis, unspecified site; Z79.01 Long term (current) use of anticoagulants; M79.7 Fibromyalgia; E03.9 Hypothyroidism, unspecified; Z96.659 Presence of unspecified artificial knee joint; N18.9 Chronic kidney disease, unspecified; D46.9 Myelodysplastic syndrome, unspecified; N28.9 Disorder of kidney and ureter, unspecified; D64.9 Anemia, unspecified; Z98.51 Tubal ligation status; Z86.73 Personal history of transient ischemic attack (TIA), and cerebral infarction without residual deficits; I25.2 Old myocardial infarction; Z88.5 Allergy status to narcotic agent; Z88.8 Allergy status to other drugs, medicaments and biological substances; Z79.899 Other long term (current) drug therapy; Z79.52 Long term (current) use of systemic steroids; Z98.49 Cataract extraction status, unspecified eye; Z86.010 Personal history of colon polyps; Z90.49 Acquired absence of other specified parts of digestive tract; Z90.710 Acquired absence of both cervix and uterus
CPT/HCPCS: 36415; 36430; 71046; 80048; 80053; 80158; 84484; 85025; 86850; 86900; 86901; 86920; 86922; 93005; 96361; 96374; 99285-25; A9270-GY; J1642; J3490; J7030; P9016

== ENCOUNTER 2019-09-30 08:52 | Emergency (ER) | payer MEDICARE, BC ==
[2019-09-30 09:04] VITALS: BP 95/53; PULSE 86
[2019-09-30] MEDS ORDERED: cefTRIAXone 1 GM Vial IM ONE (09:47)
--- NOTE | 2019-09-30 09:53 | EDM.PDOC ---
ED HPI GENERAL MEDICAL PROBLEM - General Chief Complaint: Genitourinary Problem Stated Complaint: bladder infection Time Seen by Provider: 09/30/19 09:46 Source of Information: Reports: Patient History Limitations: Reports: No Limitations - History of Present Illness INITIAL COMMENTS - FREE TEXT/NARRATIVE: Patient is a 84-year-old female who presents to the emergency department via private vehicle this morning with a complaint of dysuria. Patient states that she noticed yesterday, dark urine and some burning sensation with urination. Also had some urgency. Patient denies fever, flank pain, abdominal pain, shortness of breath, chest pain, out of country travel, nausea, vomiting or diarrhea. Onset: Gradual Onset Date: 09/29/19 Duration: Day(s): Quality: Reports: Other (Burning sensation) Severity: Mild Improves with: Reports: None Worsens with: Reports: None Associated Symptoms: Reports: No Other Symptoms - Related Data Allergies Allergy/AdvReac Type Severity Reaction Status Date / Time hydrocodone Allergy Diaphoresis Verified 09/30/19 09:04 pregabalin [From Lyrica] Allergy TIA Verified 09/30/19 09:04 acetaminophen [From Tylenol] AdvReac Mild Nausea and Verified 09/30/19 09:04 Vomiting Home Meds: Home Meds L.acidoph,Paracasei, B.lactis [Probiotic] 1 cap PO DAILY 02/11/15 [History] Levothyroxine Sodium [Synthroid] 150 mcg PO DAILY 03/25/16 [History] Ergocalciferol (Vitamin D2) [Vitamin D2] 2,000 unit PO DAILY 11/03/18 [History] Apixaban [Eliquis] 2.5 mg PO BID 03/28/19 [History] Heparin Sodium,Porcine/PF [Heparin IV Flush 100 Units/ml] 100 unit IV ONETIME # 1 ml 04/05/19 [Rx] Docusate Sodium [Colace] 100 mg PO BEDTIME 05/22/19 [History] Furosemide 40 mg PO DAILY PRN 05/22/19 [History] Magnesium 400 mg PO DAILY 05/22/19 [History] predniSONE [Prednisone] 10 mg PO DAILY 05/22/19 [History] Metoprolol Succinate [Toprol XL] 25 mg PO DAILY tab.er 05/24/19 [Rx] Epoetin Ronald [Procrit] 20,000 unit IJ ASDIRECTED 07/27/19 [History] Cephalexin [Keflex] 500 mg PO TID #21 capsule 09/30/19 [Rx] Phenazopyridine HCl [Pyridium] 100 mg PO TID #6 tablet 09/30/19 [Rx] Past Medical History HEENT History: Reports: Cataract, Impaired Vision Cardiovascular History: Reports: Afib, Heart Murmur, Hypertension, RI, Syncope Respiratory History: Reports: None Gastrointestinal History: Reports: Colon Polyp Other Gastrointestinal History: H Pylori Genitourinary History: Reports: None Other Genitourinary History: stress incontinence h/o SECURITIES CLERK History: Reports: Fibroids, Musculoskeletal History: Reports: Arthritis, Fibromyalgia Neurological History: Reports: CVA Psychiatric History: Reports: None Endocrine/Metabolic History: Reports: Hypothyroidism Hematologic History: Reports: Anemia, Blood Transfusion(s), Other (See Below) Other Hematologic History: MDS Immunologic History: Reports: Immunosuppression Oncologic (Cancer) History: Reports: Other (See Below) Other Oncologic History: MDS Dermatologic History: Reports: Eczema - Infectious Disease History Infectious Disease History: Reports: Chicken Pox, Measles, Mumps, Pertussis ( Whooping Cough) - Past Surgical History Head Surgeries/Procedures: Reports: None HEENT Surgical History: Reports: Cataract Surgery Cardiovascular Surgical History: Reports: None Respiratory Surgical History: Reports: None GI Surgical History: Reports: Appendectomy, Cholecystectomy, Colonoscopy Female Surgical History: Reports: Hysterectomy, Salpingo-Oophorectomy, Tubal Ligation Endocrine Surgical History: Reports: Thyroidectomy Neurological Surgical History: Reports: None Musculoskeletal Surgical History: Reports: Arthroscopic Knee, Carpal Tunnel, Joint Replacement, Knee Replacement Oncologic Surgical History: Reports: Bone Marrow Aspiration Dermatological Surgical History: Reports: None Social & Family History - Family History Family Medical History: Noncontributory - Tobacco Use Smoking Status *Q: Never Smoker - Caffeine Use Caffeine Use: Reports: Coffee, Tea - Recreational Drug Use Recreational Drug Use: No ED ROS GENERAL - Review of Systems Review Of Systems: Comprehensive ROS is negative, except as noted in HPI. Constitutional: Reports: No Symptoms. Denies: Fever HEENT: Reports: No Symptoms Respiratory: Reports: No Symptoms Cardiovascular: Reports: No Symptoms Endocrine: Reports: No Symptoms GI/Abdominal: Reports: No Symptoms. Denies: Abdominal Pain : Reports: Dysuria, Frequency, Urgency. Denies: Flank Pain, Hematuria Musculoskeletal: Reports: No Symptoms Skin: Reports: No Symptoms Neurological: Reports: No Symptoms Psychiatric: Reports: No Symptoms Hematologic/Lymphatic: Reports: No Symptoms Immunologic: Reports: No Symptoms ED EXAM, RENAL/ - Physical Exam Exam: See Below Exam Limited By: No Limitations General Appearance: Alert, WD/WN, No Apparent Distress Throat/Mouth: Normal Inspection, Normal Oropharynx, No Airway Compromise Respiratory/Chest: No Respiratory Distress, Lungs Clear, Normal Breath Sounds, No Accessory Muscle Use, Chest Non-Tender Cardiovascular: Regular Rate, Rhythm, No Murmur GI/Abdominal: Normal Bowel Sounds, Soft, Non-Tender, No Organomegaly, No Distention, No Abnormal Bruit, No Mass Back Exam: Normal Inspection. No: CVA Tenderness (L), CVA Tenderness (R) Extremities: Normal Inspection, No Pedal Edema Neurological: Alert, Oriented, Normal Cognition Psychiatric: Normal Affect, Normal Mood Skin Exam: Warm, Dry, Intact, Normal Color, No Rash Lymphatic: No Adenopathy Course - Vital Signs Last Recorded V/S: Last Vital Signs Temp 95.9 F L 09/30/19 09:01 Pulse 86 09/30/19 09:01 Resp 20 09/30/19 09:01 BP 95/53 L 09/30/19 09:01 Pulse Ox 95 09/30/19 09:01 - Orders/Labs/Meds Orders: Active Orders 24 hr Category Date Time Status CULTURE URINE [RM] Stat Lab 09/30/19 09:59 Ordered Labs: Laboratory Tests 09/30/19 Range/Units 09:20 Specimen Type Urincc Urine Color Yellow (YELLOW) Urine Appearance Slightly cloudy H (CLEAR) Urine pH 5.0 (5.0-9.0) Ur Specific [place] 1.015 (1.005-1.030) Urine Protein Negative (NEGATIVE) mg/dL Urine Glucose (UA) Negative (NEGATIVE) mg/dL Urine Ketones Negative (NEGATIVE) mg/dL Urine Occult Blood Small H (NEGATIVE) Urine Nitrite Negative (NEGATIVE) Urine Bilirubin Negative (NEGATIVE) Urine Urobilinogen 0.2 (0.2-1.0) E.U./dL Ur Leukocyte Esterase Moderate H (NEGATIVE) U Hyaline Cast (Auto) Rare Urine RBC 5-10 H (0-5) /HPF Urine WBC Semi-packed (0-5) /HPF Ur Epithelial Cells Moderate H /LPF Urine Bacteria Moderate H (NONE TO FEW) /HPF Meds: Medications Discontinued Medications Generic Name Dose Route Start Last Admin Trade Name Yinka PRN Reason Stop Dose Admin Ceftriaxone Sodium 1 gm 09/30/19 09:47 Rocephin IM 09/30/19 09:48 ONETIME ONE - Re-Assessments/Exams Free Text/Narrative Re-Assessment/Exam: 09/30/19 09:56 Patient afebrile, vital signs stable, nontoxic appearing, 1 g Rocephin IM given in ER. Prescription for Keflex 500 mg 3 times a day 7 days. Departure - Departure Time of Disposition: 09:58 Disposition: Home, Self-Care 01 Condition: Good Clinical Impression: UTI, Urinary tract infectious disease - Discharge Information Prescriptions: Cephalexin [Keflex] 500 mg PO TID #21 capsule Instructions: Urinary Tract Infection, Adult, [id number], Urine Culture and Sensitivity Testing, Dysuria Referrals: Alexa Suero MD [Primary Care Provider] - Forms: ED Department Discharge Additional Instructions: Follow-up with Dr. Rose in 2-3 days. Return to emergency department sooner symptoms continue or worsen. Take medication as directed. Sepsis Event Note - Evaluation Sepsis Screening Result: No Definite Risk - Focused Exam Vital Signs: Vital Signs Temp Pulse Resp BP Pulse Ox 09/30/19 09:01 95.9 F L 86 20 95/53 L 95 Date Exam was Performed: 09/30/19 Time Exam was Performed: 10:00 - My Orders Last 24 Hours: My Active Orders 09/30/19 09:59 CULTURE URINE [RM] Stat - Assessment/Plan Last 24 Hours: My Active Orders 09/30/19 09:59 CULTURE URINE [RM] Stat Assessment:: Urinary tract infection Plan: Follow-up with PCP
== END 2019-09-30 10:13 | disposition home or self-care (01) ==
LOC: KA.ED 08:52
DX: N39.0 Urinary tract infection, site not specified (principal); I48.91 Unspecified atrial fibrillation; I10 Essential (primary) hypertension; I25.2 Old myocardial infarction; E03.9 Hypothyroidism, unspecified; Z79.01 Long term (current) use of anticoagulants; Z88.5 Allergy status to narcotic agent; Z88.8 Allergy status to other drugs, medicaments and biological substances; Z79.899 Other long term (current) drug therapy; Z86.73 Personal history of transient ischemic attack (TIA), and cerebral infarction without residual deficits
CPT/HCPCS: 81001; 87086; 87088; 87186; 96372; 99283; 99284; J0696

== ENCOUNTER 2019-10-16 09:10 | Inpatient (IN) | payer MEDICARE, BC ==
[2019-10-16 11:11] LABS: ANION GAP 15.6 mmol/L (5-15)
--- NOTE | 2019-10-16 11:41 | CR ---
[id number] RAD/RAD Chest PA or AP 1V EXAM: RAD Chest PA or AP 1V INDICATION: SHORTNESS OF BREATH. COMPARISON: April 2019. DISCUSSION: Right chest wall port catheter in place. Tip in the SVC. Cardiomegaly and central vascular congestion. Skinfold projects over the right lung base. No infiltrate, effusion, pneumothorax, or edema. IMPRESSION: As above. Eddie Jeffery MD 10/16/19 1139 Thank you for allowing us to participate in the care of your patient.
[2019-10-16] MEDS: Sodium Chloride 0.9% 1,000 ML IV SCH ×2 (11:45→19:44)
--- NOTE | 2019-10-16 13:22 | HP ---
HISTORY OF PRESENT ILLNESS: This is an 84-year-old female, who was seen in an outpatient room today with a chief complaint of weakness. The patient is blood transfusion dependent for myelodysplastic syndrome. She had a hemoglobin last week of 7.6. This did not qualify her for blood transfusion since her parameter is less than 7.5. She was almost positive she would need a blood transfusion today. Her hemoglobin was actually 7.7. She has recently had a urinary tract infection and has completed a full course of Levaquin. The patient is reporting being extremely weak and feeling dehydrated with a dry mouth. Her son accompanied her to her outpatient lab draw today and reported that she essentially slept all weekend long. The patient has a history of atrial fibrillation and is taking Eliquis as well as metoprolol. She does have congestive heart failure and takes furosemide on a daily basis and an additional dose if she gains more than 3 pounds. She has hypothyroidism and is taking levothyroxine. She has hypomagnesemia and is taking a magnesium supplement. She is followed by Oncology/Hematology. Dr. Sanchez with [facility] in [place], is her oncologist. She is taking prednisone on a daily basis. She receives Procrit injections weekly. She has diabetes mellitus and is taking metformin. Her most recent A1c was 6.9% on 08/31/2019. She last had an echocardiogram performed on 09/07/2019. At that time, the left ventricle chamber size, wall thickness, and systolic function were within normal limits. There were no wall motion abnormalities observed. Ejection fraction 60% to 65%. Echo findings were consistent with grade 2 of 4 diastolic dysfunction. The E/E' ratio is greater than 15, consistent with elevated left heart filling pressures by Doppler criteria. Right ventricle was of normal size and systolic function. Visual portions of the aortic root, transverse arch, and descending aorta appear normal. There is mild mitral valve regurgitation and mild tricuspid valve regurgitation. Right ventricular systolic pressure estimated between 50 and 55 mmHg. No evidence of pericardial effusion. The patient also had a carotid ultrasound performed 09/04/2019. She had scattered carotid plaque with no hemodynamically significant stenosis identified in either carotid artery. Both vertebral arteries were antegrade at that time. FAMILY HISTORY: Noncontributory. SOCIAL HISTORY: The patient does not use alcohol and does not smoke. She lives in assisted living. She is . She has four living children, two of whom live in [place]. Her daughter, Rocio, lives in [place], [place], and her son Eddie lives in [facility] and checks on her frequently. REVIEW OF SYSTEMS: She denies any fever, weight loss or weight gain. No headache, visual changes, or dysphagia. No chest pain or palpitations. She does admit to some shortness of breath. No cough. No abdominal pain, nausea, vomiting, diarrhea, or constipation. She has had a recent urinary tract infection. She does complain of overall generalized weakness. PHYSICAL EXAMINATION: VITAL SIGNS: Temperature is 96, pulse 109, respirations 20, blood pressure 117/50, O2 saturation is 97% on room air. She is 5 feet 5 inches tall and weighs 116 pounds and 12 ounces. SKIN: Somewhat pale/gardner. Dry to touch. CARDIAC: Reveals S1, S2 to be normal. Rhythm is irregularly irregular. No murmur, click, or gallop is auscultated. LUNGS: Clear without rales, wheezes, or rhonchi. ABDOMEN: Soft, nontender. Bowel sounds present in all four quadrants. EXTREMITIES: There is no pedal edema. There are some cyanotic changes to the lower extremities involving the feet and toes. This has been a chronic problem for this patient. IMPRESSION: 1. Generalized weakness and dehydration. She will be admitted to the hospital to receive IV fluids. She is agreeable to this plan of care and wishes to proceed. 2. Myelodysplastic syndrome. This is a chronic problem for this patient and she is transfusion dependent. She is on daily prednisone as well as weekly Procrit injections and is followed by Dr. Sanchez. 3. Anemia. Her hemoglobin today was 7.7. I have a feeling that this is due to the fact that she is dehydrated. I believe this will dilute out and she will qualify for a blood transfusion tomorrow. 4. Atrial fibrillation with a controlled ventricular response. She is on Eliquis as well as metoprolol. 5. Hypothyroidism, stable with replacement. 6. Congestive heart failure, stable at this time. 7. Hypomagnesemia, stable with supplementation. 8. Diabetes mellitus, stable with metformin with a recent A1c of 6.9%. /[id number]/MODL MTDD
[2019-10-16] MEDS ORDERED: Triamcinolone Acetonide 0.1% Oint 15 GM Tube TOP PRN (14:00)
[2019-10-16] MEDS: metFORMIN 500 MG Tab PO SCH (18:16)
[2019-10-16] MEDS: Apixaban 5 MG Tab PO SCH (20:32)
[2019-10-17] MEDS ORDERED: Acetaminophen 325 MG Tab PO PRN (01:45)
[2019-10-17] MEDS: Sodium Chloride 0.9% 1,000 ML IV SCH (03:29)
[2019-10-17] MEDS: Levothyroxine 50 MCG Tab PO SCH (07:44)
[2019-10-17] MEDS ORDERED: diphenhydrAMINE 25 MG Cap PO ONE (08:28)
[2019-10-17] MEDS: Apixaban 5 MG Tab PO SCH ×2 (08:35→20:57)
[2019-10-17] MEDS: Magnesium Oxide 500 MG Tab PO SCH (08:35)
[2019-10-17] MEDS ORDERED: Acetaminophen 500 MG Tab PO ONE (08:35)
[2019-10-17] MEDS: Cholecalciferol (Vitamin D3) 25 MCG Tab PO SCH (08:35)
[2019-10-17] MEDS: metFORMIN 500 MG Tab PO SCH ×2 (08:35→18:21)
[2019-10-17] MEDS: B.Bifidum/B.Longum/L.Acidophilus/L.Rhamnosus (Probiotic) Cap PO SCH (08:35)
[2019-10-17] MEDS: Docusate Sodium 100 MG Cap PO SCH ×2 (08:35→08:41)
[2019-10-17] MEDS: predniSONE 5 MG Tab PO SCH (08:35)
[2019-10-17] MEDS: Furosemide 20 MG Tab PO SCH (08:55)
[2019-10-17] MEDS: Metoprolol Succinate 25 MG Tab.ER PO SCH (08:55)
[2019-10-17 09:04] LABS: ANION GAP 14.5 mmol/L (5-15); CHLORIDE,CL 107 mmol/L (98-115); SODIUM,NA 144 mmol/L (136-145)
--- NOTE | 2019-10-17 13:07 | PN ---
10/17/2019 PATIENT NAME: MEAGAN LOPEZ HISTORY OF PRESENT ILLNESS: This is an 84-year-old female with myelodysplastic syndrome that was admitted yesterday for dehydration and weakness. The patient is transfusion dependent. She came in for lab yesterday to include a CBC as well as a followup UA after a urinary tract infection. Her hemoglobin was found to be 7.7. She was extremely dehydrated and weak. She had basically slept the entire weekend prior to me seeing her yesterday. She was not seen in the clinic. She was seen in her outpatient room where she came for her lab. Followup UA actually did show some bacteria, however, there was quite a few epithelial cells as well. A cath UA was obtained today, which is negative for UTI. It was a somewhat difficult catheterization procedure according to the nurse. Today, her hemoglobin is 5.7. She is being typed and cross-matched for 2 units of packed RBCs. She will have followup lab work in the morning. She may well need more than the 2 units today. Basic metabolic panel shows an improvement in her BUN from yesterday. BUN yesterday was 51 and today it is 30. She was quite dehydrated and has been receiving normal saline at 125 mL/h. She does report feeling quite a bit better than she did yesterday. However, she is feeling quite weak and slept most of the day yesterday. She has atrial fibrillation, is taking Eliquis as well as metoprolol. She has congestive heart failure and takes furosemide on a daily basis and an additional dose if she gains more than 3 pounds. She has hypothyroidism and is taking levothyroxine. She has hypomagnesemia and is taking a magnesium supplement. She is followed by Oncology/Hematology. Dr. Sanchez with [facility] in [place] was her oncologist. She is taking prednisone on a daily basis and also receives Procrit injections weekly. All information regarding this hospitalization will be forwarded to Dr. Sanchez as requested by the patient for continuing care. She has diabetes mellitus and is taking metformin. Her most recent A1c was 6.9% on 08/31/2019. I did outline in her admission H and P. Her recent echocardiogram which was performed in August of 2019. She also had a carotid ultrasound in August of 2019, which was negative for any hemodynamic which was negative for any hemodynamically significant stenosis. PHYSICAL EXAMINATION: VITAL SIGNS: Temp is 97.5, pulse 88, respirations 20, blood pressure 140/66, O2 saturation is 98% on room air. SKIN: Pale/gardner in appearance. Warm and dry to touch. She does have some cyanosis of her lower extremities, which has improved. CHEST: She does have an implanted port which is accessed at this time for IV fluids as well as blood products and blood draws. CARDIAC: Revealed S1, S2 to be normal. She does have an irregularly irregular rhythm. No murmur, click, or gallop is auscultated lungs are clear without rales, wheezes, or rhonchi. ABDOMEN: Soft, nontender. Bowel sounds present in all four quadrants. EXTREMITIES: There is no pedal edema. IMPRESSION: 1. Generalized weakness and dehydration. She has improved somewhat with some rehydration. She is feeling quite weak. 2. Myelodysplastic syndrome. This is a chronic problem for this patient and she is transfusion dependent. She is on daily prednisone as well as weekly Procrit injections and is followed by Dr. Sanchez at the [facility] in [place], [place]. 3. Anemia. Her hemoglobin yesterday was 7.7, which was hemodilutional. Her hemoglobin today is 5.5. She will be typed, cross-matched, and transfused for 2 units of blood. We will follow up with a CBC tomorrow. 4. Atrial fibrillation with controlled ventricular response. She is on Eliquis as well as metoprolol. 5. Hypothyroidism, stable with replacement. 6. Congestive heart failure, stable at this time. 7. Hypomagnesemia, stable with supplementation. 8. Diabetes mellitus, stable with metformin and recent A1c of 6.9%. 9. Elevated BUN, which is improved from 51 yesterday to 32 today. 10.Urinary tract infection, resolved. Her clean-catch UA did show some bacteria, however, this was a contaminated specimen. She had a straight cath today, which showed no evidence of urinary tract infection. I do anticipate discharge possibly or Wednesday of this week, which would be October 18 or . The patient is agreeable with the plan of care and wishes to proceed. We will continue to follow. Dr. Alexa Jeffery will see the patient in my absence tomorrow. /[id number]/MODL
[2019-10-18] MEDS ORDERED: Acetaminophen 650 MG Tab.ER PO PRN (01:15)
[2019-10-18] MEDS ORDERED: Acetaminophen 325 MG Tab PO ONE (03:51)
[2019-10-18] MEDS: Levothyroxine 50 MCG Tab PO SCH (07:47)
[2019-10-18] MEDS: metFORMIN 500 MG Tab PO SCH ×2 (08:34→18:06)
[2019-10-18] MEDS: Sodium Chloride 0.9% 20 ML SDV FLUSH SCH ×2 (09:33→21:14)
[2019-10-18] MEDS: Docusate Sodium 100 MG Cap PO SCH (09:44)
[2019-10-18] MEDS: B.Bifidum/B.Longum/L.Acidophilus/L.Rhamnosus (Probiotic) Cap PO SCH (09:44)
[2019-10-18] MEDS: Magnesium Oxide 500 MG Tab PO SCH (09:44)
[2019-10-18] MEDS: predniSONE 5 MG Tab PO SCH (09:44)
[2019-10-18] MEDS: Cholecalciferol (Vitamin D3) 25 MCG Tab PO SCH (09:44)
[2019-10-18] MEDS: Furosemide 20 MG Tab PO SCH (09:44)
[2019-10-18] MEDS: Apixaban 5 MG Tab PO SCH ×2 (09:44→21:14)
[2019-10-18] MEDS: Metoprolol Succinate 25 MG Tab.ER PO SCH (09:50)
--- NOTE | 2019-10-18 09:57 | PCM.PN ---
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 - Review of Systems Systems Review Comment:: Dodie is seen today on inpatient rounds. She was admitted on 10/16/2019 due to weakness, dehydration secondary to sleeping most of the day for the past several days and not drinking enough water. She was found to have a hemoglobin on admission of 7.7, however after administration of IVF"s her hemoglobin was actually 5.7. She received 2 units of PRBC's on 10/17/2019 and while still feeling weak, feels better this morning. Her hemoglobin today is 8. She feels she would possibly be able to go home tomorrow vs swing bed. She doesn't feel she would need swingbed. She denies any pain. Appetite is poor. - Patient Data Vitals - Most Recent: Last Vital Signs Temp 97.3 F 10/18/19 06:59 Pulse 65 10/18/19 09:50 Resp 20 10/18/19 06:59 BP 112/58 L 10/18/19 09:50 Pulse Ox 96 10/18/19 06:59 Weight - Most Recent: 117 lb 4 oz I&O - Last 24 Hours: Intake & Output 10/17/19 10/18/19 10/18/19 22:59 06:59 14:59 Intake Total 910 240 Output Total 600 900 Balance 310 -660 Lab Results Last 24 Hours: Laboratory Results - last 24 hr 10/17/19 10/18/19 Range/Units 07:53 09:00 WBC 2.06 L (5.00-10.00) 10^3/uL RBC 3.01 L (3.80-5.50) 10^6/uL Hgb 8.7 L D (12.0-16.0) g/dL Hct 26.1 L (37.0-47.0) % MCV 86.7 D (82.0-92.0) fL MCH 28.9 (27.0-31.0) pg MCHC 33.3 (32.0-36.0) g/dL RDW 17.0 H (11.5-14.5) % Plt Count 136 L (150-400) 10^3/uL MPV 12.5 H (7.4-10.4) fL Add Manual Diff Yes Neutrophils % (Manual) 27 L (50-70) % Lymphocytes % (Manual) 36 (20-40) % Monocytes % (Manual) 37 H (2-8) % Absolute Neutrophils 0.56 Lymphocytes # (Manual) 0.74 Monocytes # (Manual) 0.76 Anisocytosis 1+ slight Elliptocytes Occasional Blood Type O POSITIVE Gel Antibody Screen Negative Crossmatch See Detail Med Orders - Current: Current Medications Apixaban (Eliquis) 2.5 mg PO BID [facility] Last Admin: 10/18/19 09:44 Dose: 2.5 mg Cholecalciferol (Vitamin D3) 25 mcg PO DAILY [facility] Last Admin: 10/18/19 09:44 Dose: 25 mcg Docusate Sodium (Colace) 100 mg PO DAILY [facility] Last Admin: 10/18/19 09:44 Dose: 100 mg Epoetin Ronald (Procrit) 20,000 units SUBCUT Q7D [facility] Furosemide (Lasix) 20 mg PO DAILY [facility] Last Admin: 10/18/19 09:44 Dose: 20 mg Lactobacillus Acidophilus/Rhamnosus (Multi-Sharon Plus) 1 cap PO DAILY [facility] Last Admin: 10/18/19 09:44 Dose: 1 cap Levothyroxine Sodium (Synthroid) 150 mcg PO ACBREAKFAST [facility] Last Admin: 10/18/19 07:47 Dose: 150 mcg Magnesium Oxide (Magnesium Oxide) 1,000 mg PO DAILY [facility] Last Admin: 10/18/19 09:44 Dose: 1,000 mg Metformin HCl (Glucophage) 500 mg PO BIDMEALS [facility] Last Admin: 10/18/19 08:34 Dose: 500 mg Metoprolol Succinate (Toprol Xl) 25 mg PO DAILY [facility] Last Admin: 10/18/19 09:50 Dose: 25 mg Prednisone (Prednisone) 15 mg PO DAILY [facility] Last Admin: 10/18/19 09:44 Dose: 15 mg Sodium Chloride (Normal Saline) 20 ml FLUSH BID [facility] Last Admin: 10/18/19 09:33 Dose: 20 ml Triamcinolone Acetonide (Triamcinolone Acetonide 0.1% Oint) 0 gm TOP TID PRN PRN Reason: Dryness Discontinued Medications Acetaminophen (Tylenol) 650 mg PO Q4H PRN PRN Reason: Pain Last Admin: 10/17/19 01:45 Dose: 650 mg Acetaminophen (Tylenol Extra Strength) 1,000 mg PO ONETIME ONE Stop: 10/17/19 08:36 Last Admin: 10/17/19 08:56 Dose: 1,000 mg Acetaminophen (Tylenol) 650 mg PO NOW ONE Stop: 10/18/19 03:52 Last Admin: 10/18/19 01:15 Dose: 650 mg Apixaban (Eliquis) 2.5 mg PO BID [facility] Last Admin: 10/17/19 08:35 Dose: 2.5 mg Diphenhydramine HCl (Benadryl) 25 mg PO ONETIME ONE Stop: 10/17/19 08:29 Last Admin: 10/17/19 08:56 Dose: 25 mg Sodium Chloride (Normal Saline) 1,000 mls @ 125 mls/hr IV ASDIRECTED [facility] Last Admin: 10/17/19 03:29 Dose: 125 mls/hr - Exam General: Alert, Oriented, Cooperative, No Acute Distress Lungs: Clear to Auscultation, Normal Respiratory Effort Cardiovascular: Irregular Rhythm GI/Abdominal Exam: Normal Bowel Sounds Extremities: No Pedal Edema Sepsis Event Note - Evaluation Sepsis Screening Result: No Definite Risk - Focused Exam Vital Signs: Vital Signs Temp Pulse Pulse Resp BP BP BP 10/18/19 09:50 65 112/58 L 10/18/19 06:59 97.3 F 88 20 120/62 10/18/19 01:30 97.6 F 75 16 122/56 L 10/17/19 22:50 98.0 F 90 20 106/58 L Pulse Ox 10/18/19 09:50 10/18/19 06:59 96 10/18/19 01:30 97 10/17/19 22:50 97 Date Exam was Performed: 10/18/19 Time Exam was Performed: 10:23 - Problem List Review Problem List Initiated/Reviewed/Updated: Yes - Assessment Assessment:: Weakness Dehydration MDS with associated anemia, transfusion dependent Atrial fibrillation Hypothyroidism CHF Hypomagnesemia DM Elevated BUN - Plan Plan:: Weakness. Improving. Dehydration, resolved. MDS with associated anemia, transfusion dependent, hemoglobin stable today. Atrial fibrillation, rate controlled, continue Eliquis. Hypothyroidism. Adequately replaced. CHF, stable. Hypomagnesemia, replaced with oral supplementation. DM, controlled. Elevated BUN, improving. Possible discharge to home vs swingbed tomorrow.
[2019-10-18] MEDS ORDERED: Acetaminophen 500 MG Tab PO PRN (14:23)
[2019-10-19] MEDS: Levothyroxine 50 MCG Tab PO SCH (07:19)
[2019-10-19 07:43] LABS: ANION GAP 9.8 mmol/L (5-15); CHLORIDE,CL 104 mmol/L (98-115); SODIUM,NA 139 mmol/L (136-145)
[2019-10-19] MEDS ORDERED: Furosemide 20 MG Tab ONE (08:06)
[2019-10-19] MEDS ORDERED: Metoprolol Succinate 25 MG Tab.ER ONE (08:06)
[2019-10-19] MEDS ORDERED: Docusate Sodium 100 MG Cap ONE (08:07)
[2019-10-19] MEDS ORDERED: predniSONE 5 MG Tab ONE (08:07)
[2019-10-19] MEDS ORDERED: metFORMIN 500 MG Tab ONE ×2 (08:07→17:58)
[2019-10-19] MEDS ORDERED: Cholecalciferol (Vitamin D3) 25 MCG Tab ONE (08:08)
[2019-10-19] MEDS: B.Bifidum/B.Longum/L.Acidophilus/L.Rhamnosus (Probiotic) Cap PO SCH (08:12)
[2019-10-19] MEDS: Docusate Sodium 100 MG Cap PO SCH (08:12)
[2019-10-19] MEDS: Furosemide 20 MG Tab PO SCH (08:12)
[2019-10-19] MEDS: metFORMIN 500 MG Tab PO SCH ×2 (08:13→18:00)
[2019-10-19] MEDS: predniSONE 5 MG Tab PO SCH (08:13)
[2019-10-19] MEDS: Cholecalciferol (Vitamin D3) 25 MCG Tab PO SCH (08:14)
[2019-10-19] MEDS: Apixaban 5 MG Tab PO SCH ×2 (08:14→21:01)
[2019-10-19] MEDS: Magnesium Oxide 500 MG Tab PO SCH (08:17)
[2019-10-19] MEDS: Metoprolol Succinate 25 MG Tab.ER PO SCH (08:53)
[2019-10-19] MEDS: Sodium Chloride 0.9% 20 ML SDV FLUSH SCH (08:54)
[2019-10-19] MEDS ORDERED: Epoetin Alfa 20,000 Units/1 ML MDV SUBCUT SCH ×2 (09:00→11:30)
--- NOTE | 2019-10-19 15:06 | PN ---
10/19/2019 PATIENT NAME: MEAGAN LOPEZ HISTORY OF PRESENT ILLNESS: This is an 84-year-old female with myelodysplastic syndrome, who was admitted to the hospital on 10/16/2019, with dehydration and weakness. The patient is blood transfusion dependent for myelodysplastic syndrome. She had a hemoglobin last week of 7.6. This did not qualify for her blood transfusion since her parameters less than 7.5. On the day of admission, the patient was positive that she would need a transfusion, although her hemoglobin was 7.7. She had recently had a urinary tract infection and completed a course of Levaquin. The patient was admitting on admission to being extremely weak and feeling dehydrated. She was treated with intravenous fluids. On her second hospital day, her hemoglobin dropped to 5.7 after rehydration. She did receive 2 units of packed RBCs. The patient is feeling somewhat better, however, still is weak at times. We are requesting a physical therapy consultation today. Plan is to transfer to swing bed, possibly tomorrow. I did talk to the patient's daughter, Rocio, who agreed with this plan of care. The patient resides in an assisted living where the staff is not present on the weekend. The patient has atrial fibrillation, is taking Eliquis as well as metoprolol. She has congestive heart failure and takes furosemide on a daily basis and an additional dose if she gains more than 3 pounds. She has hypothyroidism and is taking levothyroxine. She has hypomagnesemia and is taking magnesium supplement. She is followed by Oncology/Hematology with the [facility]. Her oncologist is Dr. Sanchez. She is taking prednisone on a daily basis. She does receive Procrit injections weekly. I have faxed the patient's admission H and P as well as her second hospital day note to Dr. Sanchez for his continuing care and information. She does have diabetes mellitus and is taking metformin. Her most recent A1c was 6.9%. Significant lab values from today, her white count is 2.25. RBCs 3.04. Hemoglobin is 8.8 and hematocrit 26.7. Platelet count is 138,000. Basic metabolic panel is essentially normal with the exception of a low calcium of 8.6. BUN and creatinine are 21 and 0.78 with a GFR of greater than 60. She did have an elevated BUN on admission of 51, which improved to 30 and now is normal. I suspect this is due to her being in a better hydrated state. She recently was treated with Levaquin for a urinary tract infection. Initially, it did look like she had a persistent UTI. However, I suspected that her urinalysis was contaminated. A cath UA was obtained, which was clear. PHYSICAL EXAMINATION: VITAL SIGNS: Temp is 96, pulse 79, respirations 16, blood pressure 122/70 and 102/53. Weight is 118 pounds and 3 ounces. SKIN: Pale/gardner, warm, dry to touch. CARDIAC: Reveals S1, S2 to be normal with an irregularly irregular rhythm. No murmur, click, or gallop is auscultated. LUNGS: Clear without rales, wheezes, or rhonchi. She does have an implanted port on the right upper chest. ABDOMEN: Soft, nontender. Bowel sounds present in all four quadrants. There is no pedal edema. IMPRESSION: 1. Weakness and dehydration. This has improved, especially due to dehydration. She does continue to be weak, but feels as though she is getting better. 2. Myelodysplastic syndrome. This is a chronic problem for this patient and she is transfusion dependent. She will continue on daily prednisone as well as weekly Procrit injections. I have faxed her admission H and P and hospital notes to Dr. Sanchez for continuing care. 3. Anemia. Her hemoglobin is 7.8 today. We will continue to follow with daily CBCs. 4. Atrial fibrillation with controlled ventricular response, stable with Eliquis and metoprolol. 5. Hypothyroidism, stable with replacement. 6. Congestive heart failure, stable at this time. 7. Hypomagnesemia, stable with supplementation. 8. Diabetes mellitus, stable with metformin and recent A1c of 6.9%. 9. Elevated BUN, which is now normalized. 10.Urinary tract infection, resolved. PLAN: Plan is to transfer to swing bed tomorrow and keep through the weekend and possibly early next week to get her stronger. Apparently, PT has evaluated her and does not see any need for continued physical therapy. My comment earlier in the note regarding swing bed is no longer applicable since she does not qualify for further physical therapy. Although the patient has improved, she is still feeling too weak to be discharged today. She does need assistance from the nursing staff for some activities. Due to the patient needing additional assistance, she will be kept one more day with discharge back to independent living tomorrow /[id number]/MODL MTDD
[2019-10-20] MEDS: Levothyroxine 50 MCG Tab PO SCH (07:33)
[2019-10-20 07:55] VITALS: BP 108/58
[2019-10-20] MEDS: B.Bifidum/B.Longum/L.Acidophilus/L.Rhamnosus (Probiotic) Cap PO SCH (08:34)
[2019-10-20] MEDS: Furosemide 20 MG Tab PO SCH ×2 (08:34→08:53)
[2019-10-20] MEDS: predniSONE 5 MG Tab PO SCH (08:34)
[2019-10-20] MEDS: Docusate Sodium 100 MG Cap PO SCH (08:34)
[2019-10-20] MEDS: Cholecalciferol (Vitamin D3) 25 MCG Tab PO SCH (08:34)
[2019-10-20] MEDS: Magnesium Oxide 500 MG Tab PO SCH (08:34)
[2019-10-20] MEDS: metFORMIN 500 MG Tab PO SCH (08:34)
[2019-10-20] MEDS: Metoprolol Succinate 25 MG Tab.ER PO SCH (08:44)
[2019-10-20 08:45] VITALS: PULSE 63
[2019-10-20] MEDS: Apixaban 5 MG Tab PO SCH (08:54)
--- NOTE | 2019-10-20 08:58 | PCM.DCSUM1 ---
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 She had been more fatigued than usual and had been sleeping most of the day for several days prior to her admission. She was not drinking as she was sleeping and became dehydrated. She was given IVF's. Her blood was hemoconcentrated with a falsely elevated hgb of 7.7 on admission but dropped to 5. She received 2 units of PRBC's her standing order for her MDS. She is overall feeling much better. She did have PT evaluation on 10/18 and it was felt she did not require swingbed services and she was safe to discharge to home. Diagnosis: Stroke: No Modified Osiel Scale: No Signif.Disability Despite Sympt.Able to Carry Out Usual Act./Duties Modified Osiel Scale Score: 1 - Discharge Data Discharge Date: 10/20/19 Discharge Disposition: Home, Self-Care 01 Condition: Good - Referral to Home Health Primary Care Physician: Alexa Suero MD - Patient Summary/Data Consults: Consultations 10/19/19 09:15 PT Evaluation and Treatment [CONS] Routine - Patient Instructions Diet: Usual Diet as Tolerated - Discharge Plan *PRESCRIPTION DRUG MONITORING PROGRAM REVIEWED*: Not Applicable *COPY OF PRESCRIPTION DRUG MONITORING REPORT IN PATIENT JAISON: Not Applicable Home Medications: Home Meds L.acidoph,Paracasei, B.lactis [Probiotic] 1 cap PO DAILY 02/11/15 [History] Levothyroxine Sodium [Synthroid] 150 mcg PO DAILY 03/25/16 [History] Apixaban [Eliquis] 2.5 mg PO BID 03/28/19 [History] Docusate Sodium [Colace] 100 mg PO DAILY 05/22/19 [History] Furosemide 20 mg PO DAILY 05/22/19 [History] predniSONE [Prednisone] 15 mg PO DAILY 05/22/19 [History] Metoprolol Succinate [Toprol XL] 25 mg PO DAILY tab.er 05/24/19 [Rx] Epoetin Ronald [Procrit] 20,000 unit SUBCUT WEEKLY 07/27/19 [History] Cholecalciferol (Vitamin D3) [Vitamin D3] 25 mcg PO DAILY 10/16/19 [History] Magnesium Oxide [Magnesium] 2 tab PO DAILY 10/16/19 [History] Triamcinolone Acetonide [Triamcinolone Acetonide 0.1% Oint] 1 applic TOP TID PRN 10/16/19 [History] metFORMIN HCl [Metformin HCl] 500 mg PO BID 10/16/19 [History] - Discharge Summary/Plan Comment DC Time >30 min.: No - General Info Date of Service: 10/20/19 Admission Dx/Problem (Free Text: Weakness, dehydration, anemia secondary to MDS, transfusion dependent. - Patient Data Vitals - Most Recent: Last Vital Signs Temp 97.2 F 10/20/19 07:00 Pulse 63 10/20/19 08:44 Resp 16 10/20/19 07:00 BP 108/58 L 10/20/19 08:44 Pulse Ox 99 10/20/19 07:00 Weight - Most Recent: 118 lb 12.8 oz I&O - Last 24 hours: Intake & Output 10/19/19 10/20/19 10/20/19 22:59 06:59 14:59 Intake Total 650 100 Output Total 600 900 Balance 50 -800 Lab Results - Last 24 hrs: Laboratory Results - last 24 hr 10/20/19 Range/Units 07:05 WBC 3.03 L (5.00-10.00) 10^3/uL RBC 2.90 L (3.80-5.50) 10^6/uL Hgb 8.3 L (12.0-16.0) g/dL Hct 25.7 L (37.0-47.0) % MCV 88.6 (82.0-92.0) fL MCH 28.6 (27.0-31.0) pg MCHC 32.3 (32.0-36.0) g/dL RDW 16.2 H (11.5-14.5) % Plt Count 129 L (150-400) 10^3/uL MPV 12.2 H (7.4-10.4) fL Immature Gran % (Auto) 0.3 (0.0-5.0) % Neut % (Auto) 11.2 L (50.0-70.0) % Lymph % (Auto) 51.5 H (20.0-40.0) % Towns % (Auto) 35.0 H (2.0-8.0) % Eos % (Auto) 0.0 L (1.0-3.0) % Baso % (Auto) 2.0 H (0.0-1.0) % Immature Gran # (Auto) 0.01 (0.00-0.50) 10^3/uL Neut # (Auto) 0.34 L (2.50-7.00) 10^3/uL Lymph # (Auto) 1.56 (1.00-4.00) 10^3/uL Towns # (Auto) 1.06 H (0.10-0.80) 10^3/uL Eos # (Auto) 0.00 L (0.10-0.30) 10^3/uL Baso # (Auto) 0.06 (0.00-0.10) 10^3/uL Med Orders - Current: Current Medications Acetaminophen (Tylenol Extra Strength) 1,000 mg PO TID PRN PRN Reason: Pain/Fever Apixaban (Eliquis) 2.5 mg PO BID [facility] Last Admin: 10/19/19 21:01 Dose: 2.5 mg Cholecalciferol (Vitamin D3) 25 mcg PO DAILY [facility] Last Admin: 10/20/19 08:34 Dose: 25 mcg Docusate Sodium (Colace) 100 mg PO DAILY [facility] Last Admin: 10/20/19 08:34 Dose: 100 mg Epoetin Ronald (Procrit) 20,000 units SUBCUT Q7D [facility] Last Admin: 10/19/19 11:24 Dose: 20,000 units Furosemide (Lasix) 20 mg PO DAILY [facility] Last Admin: 10/20/19 08:34 Dose: 20 mg Lactobacillus Acidophilus/Rhamnosus (Multi-Sharon Plus) 1 cap PO DAILY [facility] Last Admin: 10/20/19 08:34 Dose: 1 cap Levothyroxine Sodium (Synthroid) 150 mcg PO ACBREAKFAST [facility] Last Admin: 10/20/19 07:33 Dose: 150 mcg Magnesium Oxide (Magnesium Oxide) 1,000 mg PO DAILY [facility] Last Admin: 10/20/19 08:34 Dose: 1,000 mg Metformin HCl (Glucophage) 500 mg PO BIDMEALS [facility] Last Admin: 10/20/19 08:34 Dose: 500 mg Metoprolol Succinate (Toprol Xl) 25 mg PO DAILY [facility] Last Admin: 10/20/19 08:44 Dose: 25 mg Prednisone (Prednisone) 15 mg PO DAILY [facility] Last Admin: 10/20/19 08:34 Dose: 15 mg Triamcinolone Acetonide (Triamcinolone Acetonide 0.1% Oint) 0 gm TOP TID PRN PRN Reason: Dryness Discontinued Medications Acetaminophen (Tylenol) 650 mg PO Q4H PRN PRN Reason: Pain Last Admin: 10/17/19 01:45 Dose: 650 mg Acetaminophen (Tylenol Extra Strength) 1,000 mg PO ONETIME ONE Stop: 10/17/19 08:36 Last Admin: 10/17/19 08:56 Dose: 1,000 mg Acetaminophen (Tylenol) 650 mg PO NOW ONE Stop: 10/18/19 03:52 Last Admin: 10/18/19 01:15 Dose: 650 mg Apixaban (Eliquis) 2.5 mg PO BID [facility] Last Admin: 10/17/19 08:35 Dose: 2.5 mg Cholecalciferol (Vitamin D3) Confirm Administered Dose 25 mcg .ROUTE .STK-MED ONE Stop: 10/19/19 08:09 Last Admin: 10/19/19 08:15 Dose: Not Given Diphenhydramine HCl (Benadryl) 25 mg PO ONETIME ONE Stop: 10/17/19 08:29 Last Admin: 10/17/19 08:56 Dose: 25 mg Docusate Sodium (Colace) Confirm Administered Dose 100 mg .ROUTE .STK-MED ONE Stop: 10/19/19 08:08 Last Admin: 10/19/19 08:11 Dose: Not Given Epoetin Ronald (Procrit) 20,000 units SUBCUT Q7D [facility] Last Admin: 10/19/19 13:59 Dose: Not Given Furosemide (Lasix) Confirm Administered Dose 20 mg .ROUTE .STK-MED ONE Stop: 10/19/19 08:07 Last Admin: 10/19/19 08:11 Dose: Not Given Sodium Chloride (Normal Saline) 1,000 mls @ 125 mls/hr IV ASDIRECTED [facility] Last Admin: 10/17/19 03:29 Dose: 125 mls/hr Metformin HCl (Glucophage) Confirm Administered Dose 500 mg .ROUTE .STK-MED ONE Stop: 10/19/19 08:08 Last Admin: 10/19/19 08:11 Dose: Not Given Metformin HCl (Glucophage) Confirm Administered Dose 500 mg .ROUTE .STK-MED ONE Stop: 10/19/19 17:59 Last Admin: 10/19/19 18:00 Dose: Not Given Metoprolol Succinate (Toprol Xl) Confirm Administered Dose 25 mg .ROUTE .STK- MED ONE Stop: 10/19/19 08:07 Last Admin: 10/19/19 08:11 Dose: Not Given Prednisone (Prednisone) Confirm Administered Dose 15 mg .ROUTE .STK-MED ONE Stop: 10/19/19 08:08 Last Admin: 10/19/19 08:11 Dose: Not Given Sodium Chloride (Normal Saline) 20 ml FLUSH BID [facility] Last Admin: 10/19/19 08:54 Dose: 20 ml - Exam General: Reports: Alert, Oriented, Cooperative, No Acute Distress Lungs: Reports: Clear to Auscultation, Normal Respiratory Effort Cardiovascular: Reports: Irregular Rhythm GI/Abdominal Exam: Normal Bowel Sounds
== END 2019-10-20 10:30 | disposition home or self-care (01) | DRG 641 ==
LOC: KA.OC 09:10 → KA.MS 10:15 → UNDODISOB 18:40 → OBSVTOIN 10-17 09:04
PROC: 30233N1 Transfusion of Nonautologous Red Blood Cells into Peripheral Vein, Percutaneous Approach (ICD-10-PCS; principal; 2019-10-17)
DX: E86.0 Dehydration (principal); I50.42 Chronic combined systolic (congestive) and diastolic (congestive) heart failure; R53.1 Weakness; D46.9 Myelodysplastic syndrome, unspecified; Z66 Do not resuscitate; I48.91 Unspecified atrial fibrillation; E03.9 Hypothyroidism, unspecified; I50.30 Unspecified diastolic (congestive) heart failure; E83.42 Hypomagnesemia; I08.1 Rheumatic disorders of both mitral and tricuspid valves; Z87.440 Personal history of urinary (tract) infections; Z79.01 Long term (current) use of anticoagulants; E11.9 Type 2 diabetes mellitus without complications; Z79.890 Hormone replacement therapy; Z79.52 Long term (current) use of systemic steroids; Z79.899 Other long term (current) drug therapy; Z79.84 Long term (current) use of oral hypoglycemic drugs
CPT/HCPCS: 36415; 71045; 80048; 80053; 81001; 83735; 85025 ×2; 86850; 86900; 86901; 86920; 86922; 87804 ×2; 96360; 96361 ×2; A9270 ×13; G0378 ×2; J7030 ×3; 36430; 97161-GP; J0885; P9016

== ENCOUNTER 2019-11-15 14:00 | Emergency (ER) | payer MEDICARE, BC ==
[2019-11-15 14:18] VITALS: BP 105/51; PULSE 85
--- NOTE | 2019-11-15 14:23 | EDM.PDOC ---
ED HPI GENERAL MEDICAL PROBLEM - General Stated Complaint: WEAKNESS Time Seen by Provider: 11/15/19 14:11 Source of Information: Reports: Patient History Limitations: Reports: No Limitations - History of Present Illness INITIAL COMMENTS - FREE TEXT/NARRATIVE: Patient presents with general weakness and fatigue for 4-5 days. With her MDS she thought her Hg was very low again but was surprised to see at her routine lab draw today that it is 8.2; she can get tranfused if <7.5. She also says her appetite has been poor and she thinks she has lost 8 pounds in the last 2 weeks. She says she ate well yesterday but it comes and goes. She regularly drinks (6) 8 oz cups of water every day. Denies vomiting or diarrhea. - Related Data Allergies Allergy/AdvReac Type Severity Reaction Status Date / Time hydrocodone Allergy Diaphoresis Verified 11/15/19 14:12 pregabalin [From Lyrica] Allergy TIA Verified 11/15/19 14:12 acetaminophen [From Tylenol] AdvReac Mild Nausea and Verified 11/15/19 14:12 Vomiting Home Meds: Home Meds Levothyroxine Sodium [Synthroid] 150 mcg PO DAILY 03/25/16 [History] Apixaban [Eliquis] 2.5 mg PO BID 03/28/19 [History] Docusate Sodium [Colace] 100 mg PO DAILY 05/22/19 [History] Furosemide 20 mg PO DAILY 05/22/19 [History] predniSONE [Prednisone] 15 mg PO DAILY 05/22/19 [History] Epoetin Ronald [Procrit] 20,000 unit SUBCUT WEEKLY 07/27/19 [History] Magnesium Oxide [Magnesium] 2 tab PO DAILY 10/16/19 [History] Triamcinolone Acetonide [Triamcinolone Acetonide 0.1% Oint] 1 applic TOP TID PRN 10/16/19 [History] metFORMIN HCl [Metformin HCl] 500 mg PO BID 10/16/19 [History] Cholecalciferol (Vitamin D3) [Vitamin D3] 1,000 unit PO DAILY 10/26/19 [History] Furosemide 20 mg PO ASDIRECTED 11/15/19 [History] Metoprolol Succinate [Toprol XL] 25 mg PO 1200 11/15/19 [History] Tbo-Filgrastim [Granix] 150 mcg SUBCUT ASDIRECTED 11/15/19 [History] Past Medical History HEENT History: Reports: Cataract, Impaired Vision Cardiovascular History: Reports: Afib, Heart Murmur, Hypertension, [place], Syncope Respiratory History: Reports: None Gastrointestinal History: Reports: Colon Polyp Other Gastrointestinal History: H Pylori Genitourinary History: Reports: None Other Genitourinary History: stress incontinence 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: Fibroids, Musculoskeletal History: Reports: Arthritis, Fibromyalgia Neurological History: Reports: CVA Psychiatric History: Reports: None Endocrine/Metabolic History: Reports: Hypothyroidism Hematologic History: Reports: Anemia, Blood Transfusion(s), Other (See Below) Other Hematologic History: MDS Immunologic History: Reports: Immunosuppression Oncologic (Cancer) History: Reports: Other (See Below) Other Oncologic History: MDS Dermatologic History: Reports: Eczema - Infectious Disease History Infectious Disease History: Reports: Chicken Pox, Measles, Mumps, Pertussis ( Whooping Cough) - Past Surgical History Head Surgeries/Procedures: Reports: None HEENT Surgical History: Reports: Cataract Surgery Cardiovascular Surgical History: Reports: None Respiratory Surgical History: Reports: None GI Surgical History: Reports: Appendectomy, Cholecystectomy, Colonoscopy Female Surgical History: Reports: Hysterectomy, Salpingo-Oophorectomy, Tubal Ligation Endocrine Surgical History: Reports: Thyroidectomy Neurological Surgical History: Reports: None Musculoskeletal Surgical History: Reports: Arthroscopic Knee, Carpal Tunnel, Joint Replacement, Knee Replacement Oncologic Surgical History: Reports: Bone Marrow Aspiration Dermatological Surgical History: Reports: None Social & Family History - Family History Family Medical History: Noncontributory - Caffeine Use Caffeine Use: Reports: Tea ED ROS GENERAL - Review of Systems Review Of Systems: See Below Constitutional: Reports: Weakness, Fatigue. Denies: Fever HEENT: Denies: Ear Pain, Throat Pain, Vision Change Respiratory: Denies: Shortness of Breath, Cough Cardiovascular: Denies: Chest Pain, Lightheadedness, Syncope Endocrine: Reports: Fatigue GI/Abdominal: Denies: Abdominal Pain, Constipation, Diarrhea, Vomiting : Denies: Dysuria, Flank Pain Musculoskeletal: Denies: Neck Pain, Shoulder Pain, Arm Pain, Back Pain, Hand Pain Skin: Denies: Cyanosis, Jaundice, Mottled, Pallor, Diaphoresis Neurological: Denies: Confusion, Dizziness, Headache, Seizure, Syncope, Trouble Speaking, Difficulty Walking Psychiatric: Denies: Agitation, Anxiety, Confusion Hematologic/Lymphatic: Reports: Anemia ED EXAM, GENERAL - Physical Exam Exam: See Below Exam Limited By: No Limitations General Appearance: Alert, WD/WN, No Apparent Distress Eye Exam: Bilateral Eye: EOMI, Normal Inspection, PERRL Ears: Normal External Exam, Hearing Grossly Normal Nose: Normal Inspection, No Blood Throat/Mouth: Normal Inspection, Normal Lips, Normal Voice, No Airway Compromise Head: Atraumatic, Normocephalic Neck: Normal Inspection, Supple, Non-Tender, Full Range of Motion Respiratory/Chest: No Respiratory Distress, Lungs Clear, Normal Breath Sounds, No Accessory Muscle Use Cardiovascular: Normal Peripheral Pulses, Regular Rate, Rhythm, No Edema, No Gallop, No JVD, No Murmur Peripheral Pulses: 2+: Carotid (L), Carotid (R), Radial (L), Radial (R), Dorsalis Pedis (L), Dorsalis Pedis (R) GI/Abdominal: Normal Bowel Sounds, Soft, Non-Tender, No Organomegaly, No Distention Back Exam: Normal Inspection, Full Range of Motion. No: CVA Tenderness (L), CVA Tenderness (R) Extremities: Normal Inspection, Normal Range of Motion, Non-Tender, No Pedal Edema Neurological: Alert, Oriented, Normal Cognition, No Motor/Sensory Deficits Psychiatric: Normal Affect, Normal Mood Skin Exam: Warm, Dry, Intact, Normal Color, No Rash Course - Re-Assessments/Exams Free Text/Narrative Re-Assessment/Exam: 11/15/19 15:17 With Hg at 8.2, I reviewed the last several labs and she has definitely been lower than this numerous times. We checked her weight and compared with the last measured a month ago. She has lost 8 pounds in a month. She says she just has no appetite. She gets 2 meals/day at assisted living but doesn't always eat them lately. I suggested that at times she can't eat a meal she could try to eat a handful of peanuts, chews or similar as they would provide concentrated energy. She says she likes peanut butter and eats that with bread fairly often; but not as often lately. I encouraged her to try that whenever she can't eat a meal so that she isn't completely skipping a meal. I discussed case with Dr. Vigil, (her PCP along with Raya Lopez) who feels that it wouldn't be best for the patient with possible exposure to Covid-19 especially since we wouldn't really have any treatment options that she couldn't do at home. Patient says she could try a piece of toast and peanut butter with OJ now so will give that now. Discussed that she should see Raya Worley tomorrow or maybe a telehealth visit to discuss options including possibly hospice vs NH. Patient discharged to home in stable condition. Departure - Departure Time of Disposition: 15:27 Disposition: Home, Self-Care 01 Condition: Fair Clinical Impression: General weakness, Anorexia, MDS (myelodysplastic syndrome), Recent weight loss - Discharge Information Referrals: Alexa Suero MD [Primary Care Provider] - Additional Instructions: 1. Continue to drink 6-8 cups of water daily. 2. Try to eat your regular meals and if you can't eat a meal try to at least eat bread with peanut butter or peanuts or something else that will provide some concentrated calories/energy. Just do your best to avoid completely skipping a meal. I believe this will help with your energy and recent weight loss. 3. Follow up with your PCP tomorrow for a telehealth visit, or in person, to discuss longer term options.
== END 2019-11-15 16:05 | disposition home or self-care (01) ==
LOC: KA.ED 14:00
DX: D46.9 Myelodysplastic syndrome, unspecified (principal); R63.0 Anorexia; R63.4 Abnormal weight loss; Z88.5 Allergy status to narcotic agent; Z88.8 Allergy status to other drugs, medicaments and biological substances; Z88.6 Allergy status to analgesic agent; Z79.899 Other long term (current) drug therapy; Z79.01 Long term (current) use of anticoagulants; I48.91 Unspecified atrial fibrillation; I10 Essential (primary) hypertension; I25.2 Old myocardial infarction; M19.90 Unspecified osteoarthritis, unspecified site; Z86.73 Personal history of transient ischemic attack (TIA), and cerebral infarction without residual deficits
CPT/HCPCS: 99284

== ENCOUNTER 2019-11-20 14:15 | Inpatient (IN) | payer MEDICARE, BC ==
[2019-11-20] MEDS ORDERED: Sodium Chloride 0.9% 1,000 ML IV ONE (15:00)
[2019-11-20 15:50] LABS: ANION GAP 14.3 mmol/L (5-15); CHLORIDE,CL 97 mmol/L (98-115); SODIUM,NA 135 mmol/L (136-145)
[2019-11-20] MEDS ORDERED: Digoxin 500 MCG/2 ML Amp IVPUSH ONE (17:20)
[2019-11-20] MEDS ORDERED: Atropine 0.1 MG/ML 10 ML Syringe IVPUSH PRN (18:21)
[2019-11-20] MEDS ORDERED: Nitroglycerin 0.4 MG Tab.SL SL PRN (18:21)
[2019-11-20] MEDS ORDERED: EPINEPHrine 1:10,000 1 MG/10 ML Syringe IVPUSH PRN (18:21)
[2019-11-20] MEDS ORDERED: Lidocaine 2% 100 MG/5 ML Syringe IVPUSH PRN (18:21)
[2019-11-20] MEDS ORDERED: Triamcinolone Acetonide 0.1% Oint 15 GM Tube TOP PRN (18:37)
[2019-11-20] MEDS ORDERED: metFORMIN 500 MG Tab PO SCH (21:00)
[2019-11-20] MEDS ORDERED: Apixaban 5 MG Tab PO SCH (21:30)
[2019-11-20] MEDS ORDERED: Cholecalciferol (Vitamin D3) 25 MCG Tab PO SCH (21:30)
[2019-11-20] MEDS: Docusate Sodium 100 MG Cap PO SCH (21:35)
[2019-11-21] MEDS ORDERED: Acetaminophen 500 MG Tab PO PRN (00:26)
[2019-11-21] MEDS: LEVOTHYROXINE 150 MCG PO SCH (08:15)
[2019-11-21 08:17] LABS: ANION GAP 13.3 mmol/L (5-15); CHLORIDE,CL 100 mmol/L (98-115); SODIUM,NA 136 mmol/L (136-145)
[2019-11-21] MEDS ORDERED: Digoxin 500 MCG/2 ML Amp IVPUSH ONE ×2 (08:23→12:12)
[2019-11-21] MEDS ORDERED: diphenhydrAMINE 25 MG Cap PO ONE (08:49)
[2019-11-21] MEDS ORDERED: Acetaminophen 500 MG Tab PO ONE (08:52)
[2019-11-21] MEDS ORDERED: APIXABAN 5 MG PO SCH (09:00)
[2019-11-21] MEDS ORDERED: predniSONE 5 MG Tab PO SCH (09:00)
[2019-11-21] MEDS ORDERED: Cholecalciferol (Vitamin D3) 25 MCG Tab PO SCH (09:00)
[2019-11-21] MEDS ORDERED: Docusate Sodium 100 MG Cap PO SCH (09:00)
[2019-11-21] MEDS ORDERED: Sodium Chloride 0.9% 250 ML IV SCH (10:30)
[2019-11-21] MEDS: MAGNESIUM OXIDE 400 MG PO SCH (12:00)
[2019-11-21] MEDS: metFORMIN 500 MG Tab - PTOM PO SCH ×3 (12:00→20:00)
[2019-11-21] MEDS: Metoprolol Succinate 25 MG Tab.ER - PTOM PO SCH (12:00)
--- NOTE | 2019-11-21 13:39 | PN ---
PATIENT NAME: DODIE LOPEZ HISTORY OF PRESENT ILLNESS: This is an 84-year-old female who was admitted to the hospital yesterday with profound hypotension from which she was symptomatic. She was also found to be in atrial fibrillation with RVR with a ventricular rate of 123. She came to the clinic complaining of weakness. This has become quite progressive. The patient has myelodysplastic syndrome and is transfusion- dependent every 2 to 3 weeks. Last week, her hemoglobin was 8.2. On admission, her hemoglobin was 7.7. I did consult with her cardiology nurse practitioner, Mervat Floyd CNP, regarding her atrial fibrillation and RVR with hypotension. She recommended digoxin a loading dose of 500 mcg x1 and then follow with a daily dose of 0.125 mg and a digoxin level in two weeks. At the time the nurse was going to give the loading dose of digoxin yesterday, the patient's heart rate was in the 80s, so we did hold the bolus dose. This morning I was notified by the nursing staff that the patient was in atrial fibrillation with a rate of 160 to 180. We did give a bolus of digoxin today at a dose of 250 mcg IV x1. She will now continue a daily dose of digoxin 0.125 mg. Digoxin level will be repeated in two weeks. The patient received Granix yesterday which is also known as Neupogen for leukopenia. White blood cell count yesterday was 3.07. She received her Neupogen injection at approximately 5:45 p.m. last night. Her white blood cell count today is 64.37. Thinking that this was a possible lab error, I had the lab repeat the WBC and it was found to be even higher at 68.52. This was quite unexpected and quite bizarre in fact. I did consult with Dr. Sanchez, who is the patient's oncologist. I faxed the labs to his nurse, Lenore. The nurse was going to show them to Dr. Sanchez, and at the time of this dictation, I have not heard back from Dr. Sanchez. The nurse said that this may be an effect of the growth factor, Neupogen, that was given yesterday. We will repeat the labs tomorrow to see where they are at. The patient does have chronic anemia and has orders for from Dr. Sanchez to transfuse 2 units of packed RBCs for a hemoglobin of less than 7.5. Her hemoglobin today is 7.3. We will proceed with 2 units of packed RBCs. Chemistry panel is remarkable for an elevated total bilirubin, which is actually higher than it was yesterday, it is 2.2; yesterday, it was 1.5. AST and ALT are 107 and 146 respectively. These are trending upward. The patient does appear jaundiced. The patient has hypothyroidism and is taking levothyroxine. She has hypomagnesemia and is taking a magnesium supplement. She has diabetes mellitus and is taking metformin. She is on daily prednisone therapy. She does take a probiotic as well as a vitamin D supplement. The patient has had a significant weight loss; in the last two months, she has gone from 124 to 109.6. The patient is now living with her son, Eddie. Her daughter, Rocio, has moved to this community from [place], [place] to take care of her mother. Her daughter Rocio is a nurse, and I have been in close contact with her in regard to her mother's care. She has been agreeable with her care so far. The patient is on telemetry and has been in atrial fibrillation with a rate between 80 and 180. Yesterday, I did send a request to [facility] for an overnight oximetry to see if the patient would qualify for nighttime oxygen therapy. PHYSICAL EXAMINATION: VITAL SIGNS: Temp is 97.9, pulse was 163 this morning and at 142 at the time of this dictation. Pulse has been running between the 80s and 90s overnight. Respiratory rate is 20, blood pressure is 81/46, O2 saturation is 98%. DERM: The patient's skin is pale, cool, almost gardner in color. CARDIAC: Reveals S1, S2 to be normal. The rate is irregularly irregular and tachycardic. No murmur, click, or gallop is auscultated. LUNGS: Clear without rales, wheezes, or rhonchi. ABDOMEN: Soft, nontender. Bowel sounds present in all 4 quadrants. There is no pedal edema. IMPRESSION: 1. Hypotension. This has mildly improved. Her blood pressure yesterday was 70/42 and has been 81 to 95 systolic and 46 to 55 diastolic. 2. Weakness. This is an ongoing problem and seems to be progressive. 3. Atrial fibrillation with rapid ventricular response. We did give her a loading dose of digoxin 250 mcg IV today, and she will continue a daily dose of 0.125 mg daily. I will entertain actually repeating the loading dose of 25 mcg if her rate continues as it is. 4. Myelodysplastic syndrome with anemia and leukopenia. She will receive 2 units of packed RBCs today. She did have a profound effect from her Granix/Neupogen injection yesterday with her white count going from 3.07 to 64.37 and repeated found to be 68.52. This was unexpected and quite bizarre response. I have consulted with the patient's oncologist, and I am waiting for a call back from him in regard to that profound response. 5. Hypothyroidism, on replacement. 6. Hypomagnesemia. She is on a magnesium supplement. 7. Diabetes mellitus, stable on metformin. 8. Chronic prednisone therapy. When speaking with the patient's daughter, Rocio, yesterday, we did discuss at what point does the patient decide to terminate treatment. This subject has been discussed with Dodie by Dr. Sanchez. It sounds as though she is two weeks into a trial of a six-week three times a week dosing of Neupogen. Depending on her response, continuing treatment will be discussed at that time. He did broach the subject with the patient in regard to hospice and/or palliative care. In regard to the patient's atrial fibrillation, if the digoxin is not effective and the patient can tolerate a trip to [place], she may be a candidate for elective cardioversion since the atrial fibrillation with RVR is most likely causing or at least contributing to her hypotension. /[id number]/MODL
[2019-11-21] MEDS: Docusate Sodium 100 MG Cap PO SCH (18:01)
[2019-11-21] MEDS: APIXABAN 2.5 MG PO SCH (18:01)
[2019-11-21] MEDS: Cholecalciferol (Vitamin D3) 25 MCG Tab PO SCH (18:01)
[2019-11-22] MEDS: LEVOTHYROXINE 150 MCG PO SCH ×2 (06:04→06:42)
[2019-11-22] MEDS: APIXABAN 2.5 MG PO SCH ×2 (08:00→18:06)
[2019-11-22 08:13] LABS: ANION GAP 11.3 mmol/L (5-15); CHLORIDE,CL 104 mmol/L (98-115); SODIUM,NA 142 mmol/L (136-145)
--- NOTE | 2019-11-22 09:46 | PCM.DCSUM1 ---
Discharge Summary - Hospital Course Free Text/Narrative:: Admission Date: 11/20/2019 (admission from clinic) Discharge Date: 11/22/2019 (POSTPONED DUE TO RESUMPTION OF A-FIB WITH RVR) CODE STATUS: DNR/DNI Disregard this as a discharge summary and use as a progress note. She went back into a-fib with RVR and will now be switched to inpatient status in CCU. I spoke to Mervat Floyd CNP, cardiology, about Dodie's case and she wants her to try amiodarone 150 mg IV loading dose followed by 1 mg/min for 6 hours and 0.5 mg/min for the next 18 hours for a total of 24 hours and then start amiodarone 200 mg PO daily. She states that Dodie may be a candidate for cardioversion and she could help coordinate that if deemed necessary. Will need to monitor thyroid levels as well as QTc. She states if she has bradycardia to discontinue with digoxin. Admission Diagnoses: Hypotension Weakness A-fib with RVR MDS, transfusion dependent Elevated transaminases Discharge Diagnoses: Hypotension, resolved Weakness A-fib with RVR, dig loaded, discharging on digoxon 125 mcg PO daily at 6PM MDS, transfusion dependent, s/p 2 units PRBC's on 11/21/2019 Elevated transaminases, s/p hepatic U/S on 11/22/2019. "Fatty Liver, borderline hepatomegaly, prominent hepatic veins, minimal ascites" Elevated WBC secondary to Granix, trending down Secondary Diagnoses: Hypothyroidism Hypomagnesemia Diabetes mellitus, type 2, non-insulin dependent Weight loss New medications at discharge: Digoxin 125 mcg PO daily (ordered through her clinic chart and sent to the pharmacy) Dodie is discharged from an observation stay due to hypotension, weakness and a -fib with RVR. She was seen in at the [facility] on 11/20/2019 by Raya Lopez PA-C for weakness. She was found to be in a-fib with RVR. She has a hx of a-fib and was already on Eliquis 2.5 mg PO BID. She was hypotensive with a blood pressure of 70/40. Cardiology was consulted about management of the a- fib with her hypotension and they recommend digoxin 500 mcg as a loading dose, which she received as 250 mcg x 2 doses spread apart by a few hours. This was started on 11/21/2019. She had a brief period of time where she went back into sinus rhythm but she is currently in a-fib with a rate 80-95. She will be discharged on digoxin 125 mcg PO daily at 6PM. She is very weak. She very recently moved in with her son and [id number] and their 2 children as well as having her daughter move into the same home to help care for her. I did have a very kristel discussion with her that this weakness is likely her new normal and she will need to adjust to that mentally. She voice understanding. She also was noted to have elevated liver function tests. This is chronic as an outpatient, however her bilirubin did elevated from 2.2 to 3.6 on the day of discharge. She did have a liver U/S prior to discharge which showed fatty liver , borderline hepatomegaly, prominent hepatic veins and minimal ascites. She was also noted to have leukocytosis, admission WBC was 3 and then increased to 68. Her care mgr was consulted and it was felt this could be attributed to the Granix she received on 11/20/2019. It had trended down to 20 at discharge. There was no evidence of infection on examination. She has weight loss over the past 2 months of nearly 20 pounds. She is not hungry and she sleeps a lot, often missing meals. She was encouraged to try Boost or Ensure with a meal to help increase calorie intake. Diagnosis: Stroke: No Modified [place] Scale: Mod.Disablility Requiring Some Help,Able to Walk Without Assistance Modified [place] Scale Score: 3 - Discharge Data Discharge Disposition: Home, Self-Care 01 Condition: Good - Referral to Home Health Primary Care Physician: Alexa Suero MD - Patient Summary/Data Recommended Follow-up Testing/Procedures: Digoxin level in 2 weeks. CBC and CMP on 11/24/2019 - Discharge Plan *PRESCRIPTION DRUG MONITORING PROGRAM REVIEWED*: Not Applicable *COPY OF PRESCRIPTION DRUG MONITORING REPORT IN PATIENT JAISON: Not Applicable Home Medications: Home Meds Levothyroxine Sodium [Synthroid] 150 mcg PO QAM 03/25/16 [History] Apixaban [Eliquis] 2.5 mg PO 0900,1800 03/28/19 [History] Docusate Sodium [Colace] 100 mg PO 1800 05/22/19 [History] Furosemide 20 mg PO QAM 10/28/19 [History] Epoetin Ronald [Procrit] 60,000 unit SUBCUT WEEKLY 07/27/19 [History] Magnesium Oxide [Magnesium] 2 tab PO 1200 10/16/19 [History] metFORMIN HCl [Metformin HCl] 500 mg PO 0900,2100 10/16/19 [History] Cholecalciferol (Vitamin D3) [Vitamin D3] 1,000 unit PO 1800 10/26/19 [History] Furosemide 20 mg PO DAILY PRN 11/15/19 [History] Metoprolol Succinate [Toprol XL] 25 mg PO 1200 11/15/19 [History] Tbo-Filgrastim [Granix] 150 mcg SUBCUT ASDIRECTED 11/15/19 [History] - Discharge Summary/Plan Comment DC Time >30 min.: Yes Discharge Summary/Plan Comment: Discharge time was 37 minutes. - General Info Date of Service: 11/22/19 Admission Dx/Problem (Free Text: Weakness, a-fib with RVR, hypotension. - Patient Data Vitals - Most Recent: Last Vital Signs Temp 98.0 F 11/22/19 06:43 Pulse 96 11/22/19 06:43 Resp 20 11/22/19 06:43 BP 95/62 11/22/19 06:43 Pulse Ox 97 11/22/19 06:43 Weight - Most Recent: 109 lb I&O - Last 24 hours: Intake & Output 11/21/19 11/22/19 11/22/19 22:59 06:59 14:59 Intake Total 531 200 Balance 531 200 Lab Results - Last 24 hrs: Laboratory Results - last 24 hr 11/21/19 11/22/19 11/22/19 Range/Units 08:55 07:25 07:25 WBC 20.15 H D (5.00-10.00) 10^3/uL RBC 3.91 (3.80-5.50) 10^6/uL Hgb 11.6 L D (12.0-16.0) g/dL Hct 34.2 L (37.0-47.0) % MCV 87.5 (82.0-92.0) fL MCH 29.7 (27.0-31.0) pg MCHC 33.9 (32.0-36.0) g/dL RDW 15.3 H (11.5-14.5) % Plt Count 125 L (150-400) 10^3/uL MPV 13.8 H (7.4-10.4) fL Immature Gran % (Auto) 0.8 (0.0-5.0) % Neut % (Auto) 82.0 H (50.0-70.0) % Lymph % (Auto) 6.7 L (20.0-40.0) % [place] % (Auto) 10.2 H (2.0-8.0) % Eos % (Auto) 0.0 L (1.0-3.0) % Baso % (Auto) 0.3 (0.0-1.0) % Immature Gran # (Auto) 0.16 (0.00-0.50) 10^3/uL Neut # (Auto) 16.54 H (2.50-7.00) 10^3/uL Lymph # (Auto) 1.34 (1.00-4.00) 10^3/uL [place] # (Auto) 2.05 H (0.10-0.80) 10^3/uL Eos # (Auto) 0.00 L (0.10-0.30) 10^3/uL Baso # (Auto) 0.06 (0.00-0.10) 10^3/uL Giant Platelets Occasional Sodium 142 (136-145) mmol/L Potassium 4.4 (3.3-5.3) mmol/L Chloride 104 (98-115) mmol/L Carbon Dioxide 31.1 (21.0-32.0) mmol/L Anion Gap 11.3 (5-15) mmol/L BUN 16 (6-25) mg/dL Creatinine 0.73 (0.51-1.17) mg/dL Est Cr Clr Drug Dosing 46.37 mL/min Estimated GFR (MDRD) > 60 mL/min Glucose 119 H (75 - 99) mg/dL Calcium 8.6 L (8.7-10.3) mg/dL Total Bilirubin 3.6 H (0.2-1.0) mg/dL AST 89 H (15-37) U/L ALT 135 H (12-78) U/L Alkaline Phosphatase 104 (46-116) IU/L Total Protein 5.7 L (6.4-8.2) g/dL Albumin 2.78 L (3.00-4.80) g/dL Blood Type O POSITIVE Gel Antibody Screen Negative Crossmatch See Detail Med Orders - Current: Current Medications Acetaminophen (Tylenol Extra Strength) 500 mg PO Q4H PRN PRN Reason: Pain/Fever Last Admin: 11/21/19 00:30 Dose: 500 mg Atropine Sulfate (Atropine 0.1 Mg/Ml) 0 mg IVPUSH ASDIRECTED PRN PRN Reason: Heart. Cholecalciferol (Vitamin D3) 25 mcg PO DAILY@1800 [facility] Last Admin: 11/21/19 18:01 Dose: 25 mcg Docusate Sodium (Colace) 100 mg PO DAILY@1800 [facility] Last Admin: 11/21/19 18:01 Dose: 100 mg Epinephrine HCl (Epinephrine 1:10,000) 1 mg IVPUSH ASDIRECTED PRN PRN Reason: Heart. Epoetin Ronald (Procrit) 60,000 units SUBCUT Fr@1000 [facility] Sodium Chloride (Normal Saline) 250 mls @ 100 mls/hr IV ASDIRECTED [facility] Last Admin: 11/21/19 11:04 Dose: 100 mls/hr Lidocaine HCl (Xylocaine 2%) 0 mg IVPUSH ASDIRECTED PRN PRN Reason: Heart. Metformin HCl (Glucophage) 500 mg PO BID@1200,2100 [facility] Last Admin: 11/21/19 20:00 Dose: Not Given Metoprolol Succinate (Toprol Xl) 25 mg PO 1200 [facility] Last Admin: 11/21/19 12:00 Dose: 25 mg Nitroglycerin (Nitrostat) 0.4 mg SL ASDIRECTED PRN PRN Reason: Heart. Levothyroxine 150 (Mcg Tab - Ptom) 1 each PO ACBREAKFAST [facility] Last Admin: 11/22/19 06:42 Dose: Not Given Magnesium Oxide (400mg - Ptom) 2 tab PO 1200 [facility] Last Admin: 11/21/19 12:00 Dose: 2 tab Apixaban 2.5 Mg Tab (- Ptom) 1 each PO BID@0900,1800 [facility] Last Admin: 11/22/19 08:00 Dose: 1 each Tbo-Filgrastim (Granix) 150 mcg SUBCUT MoWeFr@1000 [facility] Triamcinolone Acetonide (Triamcinolone Acetonide 0.1% Oint) 0 gm TOP TID PRN PRN Reason: Dryness Discontinued Medications Acetaminophen (Tylenol Extra Strength) 1,000 mg PO ONETIME ONE Stop: 11/21/19 08:53 Last Admin: 11/21/19 10:25 Dose: 1,000 mg Apixaban (Eliquis) 2.5 mg PO BID [facility] Last Admin: 11/20/19 21:36 Dose: 2.5 mg Apixaban (Eliquis) 2.5 mg PO BID [facility] Last Admin: 11/21/19 08:15 Dose: 2.5 mg Cholecalciferol (Vitamin D3) 25 mcg PO DAILY [facility] Cholecalciferol (Vitamin D3) 25 mcg PO DAILY@1800 [facility] Last Admin: 11/20/19 21:35 Dose: 25 mcg Digoxin (Lanoxin) 500 mcg IVPUSH ONETIME ONE Stop: 11/20/19 17:21 Last Admin: 11/20/19 20:15 Dose: Not Given Digoxin (Lanoxin) 250 mcg IVPUSH ONETIME ONE Stop: 11/21/19 08:24 Last Admin: 11/21/19 08:32 Dose: 250 mcg Digoxin (Lanoxin) 250 mcg IVPUSH ONETIME ONE Stop: 11/21/19 12:13 Last Admin: 11/21/19 12:56 Dose: 250 mcg Diphenhydramine HCl (Benadryl) 25 mg PO ONETIME ONE Stop: 11/21/19 08:50 Last Admin: 11/21/19 10:26 Dose: 25 mg Docusate Sodium (Colace) 100 mg PO DAILY [facility] Sodium Chloride (Normal Saline) 1,000 mls @ 250 mls/hr IV ONETIME ONE Stop: 11/20/19 18:59 Last Admin: 11/20/19 15:15 Dose: 250 mls/hr Metformin HCl (Glucophage) 500 mg PO BID [facility] Last Admin: 11/20/19 21:35 Dose: 500 mg Prednisone (Prednisone) [facility] [place] General: Reports: Alert, Oriented, Cooperative, No Acute Distress Lungs: Reports: Clear to Auscultation, Normal Respiratory Effort Cardiovascular: Reports: Irregular Rhythm GI/Abdominal Exam: Normal Bowel Sounds, Soft, Non-Tender, No Organomegaly Extremities: Normal Inspection, No Pedal Edema
--- NOTE | 2019-11-22 10:31 | US ---
[id number] US/US Abdomen Limited Exam: US Abdomen Limited Clinical Data: ABNORMAL LIVER FUNCTION TESTS COMPARISON: CORRELATION IS MADE WITH THE CAT SCAN OF NOVEMBER 18, 2018 FINDINGS: There is a small amount of ascites The hepatic veins are prominent. There is a 2 cm cyst in the left lobe of the liver. There is a fatty appearance of the liver. The common duct is 7 mm in diameter. The gallbladder has been removed The liver is 17.5 cm in greatest dimension IMPRESSION: FATTY LIVER BORDERLINE HEPATOMEGALY PROMINENT HEPATIC VEINS APPEARANCE OF MINIMAL ASCITES Mikael Burton MD 11/22/19 1030 Thank you for allowing us to participate in the care of your patient.
[2019-11-22] MEDS: MAGNESIUM OXIDE 400 MG PO SCH (12:04)
[2019-11-22] MEDS: Metoprolol Succinate 25 MG Tab.ER - PTOM PO SCH (12:04)
[2019-11-22] MEDS: metFORMIN 500 MG Tab - PTOM PO SCH ×2 (12:05→21:13)
[2019-11-22] MEDS ORDERED: Metoprolol Tartrate 25 MG Tab PO ONE (13:06)
[2019-11-22] MEDS ORDERED: Amiodarone 150 MG/3 ML SDV IVPUSH ONE ×3 (14:20→14:45)
[2019-11-22] MEDS: Docusate Sodium 100 MG Cap PO SCH (18:06)
[2019-11-22] MEDS: Cholecalciferol (Vitamin D3) 25 MCG Tab PO SCH (18:06)
[2019-11-23] MEDS: LEVOTHYROXINE 150 MCG PO SCH (06:29)
[2019-11-23 07:46] LABS: ANION GAP 11.4 mmol/L (5-15); CHLORIDE,CL 102 mmol/L (98-115); SODIUM,NA 139 mmol/L (136-145)
[2019-11-23] MEDS: APIXABAN 2.5 MG PO SCH (08:17)
[2019-11-23] MEDS ORDERED: Magnesium Oxide 500 MG Tab PO SCH (12:00)
[2019-11-23] MEDS ORDERED: Metoprolol Succinate 25 MG Tab.ER PO SCH (12:00)
[2019-11-23] MEDS: metFORMIN 500 MG Tab PO SCH ×2 (12:03→20:05)
--- NOTE | 2019-11-23 13:51 | PN ---
11/23/2019 PATIENT NAME: DODIE LOPEZ HISTORY OF PRESENT ILLNESS: Dodie is an 84-year-old female who was hospitalized on 11/20/2019 due to profound weakness, hypotension, and atrial fibrillation with RVR. She was initially admitted for outpatient fluids, however, was changed to observation and then eventually to inpatient. On 11/21/2019, I consulted with Mervat Floyd CNP, who was taking care of Dodie with [facility]. At that time, she recommended IV digoxin as a load to follow with an oral dose on a daily basis. This was not effective at keeping her rate in a sinus rhythm. Yesterday, in my absence, Dr. Rose saw the patient and also consulted with Mervat in regard to atrial fibrillation with rapid ventricular response. She recommended an amiodarone loading dose, which the patient is actually still receiving. She is now in sinus rhythm and converted approximately 1 hour after starting the amiodarone drip yesterday. The amiodarone drip was started at 3:15 p.m., and she converted approximately 1 hour later. She is currently in sinus rhythm at a rate of 67 to 70 with frequent PVCs. Her electrolytes have been normal. I am not certain why she is having so many PVCs. Her potassium is 4.3. Sodium is 139. Her calcium is low at 8.2, which is mostly secondary to hypoalbuminemia. We did add a magnesium onto her labs today since she does have a history of hypomagnesemia and it was found to be 1.8. Plan is to complete the amiodarone at 3:15 today and then she will start tomorrow on amiodarone 200 mg daily. Hopefully, this helps to keep her in sinus rhythm and her rate better controlled. Hopefully, then she will not have the profound hypotension that she had prior to admission. This hopefully will also help her weakness. 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 She did receive 2 units of packed RBCs on 11/21/2019. She also received Granix that day. LABORATORY DATA: On 11/21/2019, her WBC count was 64,370 and repeated due to a feeling that there may be a lab error. It was then 68.52. Yesterday, her white count trended downwards to 20,000. Today it is 4.53. Dr. Sanchez was consulted yesterday in regard to the patient receiving a scheduled dose of Granix/Neupogen. He recommended holding the Neupogen yesterday. He will restart the Neupogen once her absolute neutrophil count is less than two. Her ANC today is 2.63. She is scheduled for labs tomorrow and then labs every Wednesday. Order was to start Granix 50 mcg two times per week when ANC is less than 2. When I initially went in to see the patient this morning, she was sleeping soundly. I did go back and later to see her after she had awoken. She states she is feeling fairly well today. She actually looks better as well. Other significant lab data: Total bilirubin was 2.2 on the and then trended upward yesterday to 3.6. Today, her bilirubin is now 1.6. AST and ALT are fairly stable at 86 and 36 respectively. Her hemoglobin today was 11.5. PHYSICAL EXAMINATION: VITAL SIGNS: Temp is 97.7, pulse is 60 and regular, respiratory rate is 18, blood pressure 102/44. O2 saturation is 97%. SKIN: Pale/gardner, warm, dry to touch. CARDIAC: Reveals S1, S2 to be normal. Rate and rhythm are regular. She does have a holosystolic murmur auscultated. No click, gallop, or rub. LUNGS: Clear without rales, wheezes, or rhonchi. ABDOMEN: Soft, nontender. Bowel sounds present in all 4 quadrants. There is no pedal edema. IMPRESSION: 1. Hypotension, greatly improved after the patient was converted out of atrial fibrillation to sinus rhythm with amiodarone. 2. Atrial fibrillation with rapid ventricular response. The patient was loaded with digoxin and was planned to be discharged on digoxin 125 mcg daily at 6 p.m. The daily dose of digoxin was discontinued. She is in the process of receiving the last of her amiodarone load with the plan to treat her with a daily dose of amiodarone 200 mg daily. 3. Weakness. This has improved, but is a chronic and progressive problem for the patient. 4. MDS (myelodysplastic syndrome), transfusion-dependent. She is status post 2 units of packed RBCs on 11/21/2019. 5. Elevated transaminase. She did have a hepatic ultrasound performed yesterday which showed fatty liver, borderline hepatomegaly. 6. Hyperbilirubinemia. This has improved, I am uncertain of the explanation for the improvement in her bilirubin. 7. Elevated WBC secondary to Granix. This is trending downward, and we will plan to restart Granix 50 mcg 2 times a week when her ANC is less than 2. 8. Hypothyroidism, this is stable at this time with a normal TSH of 0.88 on admission. She will need to have close thyroid monitoring with the use of the amiodarone. 9. Chronic anticoagulation for stroke prophylaxis with Eliquis. 10.Congestive heart failure, stable at this time. 11.Diabetes mellitus, stable on metformin. /[id number]/MODL
[2019-11-23] MEDS ORDERED: Cholecalciferol (Vitamin D3) 25 MCG Tab PO SCH (18:00)
[2019-11-23] MEDS: Apixaban 5 MG Tab PO SCH (18:20)
[2019-11-23] MEDS: Docusate Sodium 100 MG Cap PO SCH (18:33)
[2019-11-24 06:11] VITALS: BP 114/68; PULSE 75
[2019-11-24] MEDS ORDERED: Levothyroxine 75 MCG Tab PO SCH (07:30)
[2019-11-24 08:08] LABS: ANION GAP 9.2 mmol/L (5-15); CHLORIDE,CL 103 mmol/L (98-115); SODIUM,NA 136 mmol/L (136-145)
[2019-11-24] MEDS: Apixaban 5 MG Tab PO SCH (08:30)
[2019-11-24] MEDS ORDERED: Amiodarone 200 MG Tab PO SCH (09:00)
[2019-11-24] MEDS: Epoetin Alfa 20,000 Units/1 ML MDV SUBCUT ONE ×2 (09:44→11:46)
[2019-11-24] MEDS ORDERED: Epoetin Alfa 20,000 Units/1 ML MDV SUBCUT ONE ×2 (10:00→10:15)
[2019-11-24] MEDS ORDERED: Epoetin Alfa 40,000 Units/1 ML SDV SUBCUT ONE (10:00)
[2019-11-24] MEDS ORDERED: Epoetin Alfa 20,000 Units/1 ML MDV SUBCUT SCH (10:00)
--- NOTE | 2019-11-25 11:28 | DISCH ---
HISTORY OF PRESENT ILLNESS: This is an 84-year-old female who was admitted to the hospital on 11/20/2019 due to profound weakness, hypotension, and atrial fibrillation with RVR. She was initially admitted for outpatient fluids, however, was changed to observation and then eventually to inpatient. Due to the atrial fibrillation with RVR, this did warrant a consultation with Mervat Floyd CNP, who is the Cardiology PA at [facility], who has seen Dodie in the past. She did recommend IV digoxin, which was given in two divided doses of 250 mcg each. This was not effective at keeping her heart in sinus rhythm. On 11/22/2019, Dr. Rose saw the patient in my absence. The patient again had atrial fibrillation with rapid ventricular response. Amiodarone loading dose was recommended. The patient completed the amiodarone loading dose and has been in sinus rhythm with a rate of 60 to 70 with frequent PVCs. The patient is feeling quite a bit better. She is no longer hypotensive with a blood pressure today in the clinic of 114/68. The patient has had normal electrolytes throughout her hospitalization. Sodium, potassium, and magnesium were all normal. Calcium is low most likely secondary to hypoalbuminemia. 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 She did receive a blood transfusion on 11/21/2019. Hemoglobin has been staying very good in fact as good as it has been in one year the patient states. Hemoglobin the day after her transfusion was 11.6. On 11/23/2019, it was 11.5, and today, has been holding at 11.1. She did receive Granix on the day of admission [place] [address], It did go down on 11/22/2019 to 20.15, it did trend down yesterday to 4.53. Dr. Sanchez was consulted, who was her oncologist at [facility]. He recommended giving Granix when the ANC was less than two. She is going to receive Granix as well as Procrit prior to discharge today. The remainder of her labs are stable. I have been in contact with the patient's daughter, Rocio, who does have a release of information on file for her. PHYSICAL EXAMINATION: VITAL SIGNS: Temperature is 98.2, pulse 75, respirations 16, blood pressure 114/68, O2 saturation is 93% on room air. SKIN: Warm, pale, dry to touch. CARDIAC: Reveals S1, S2 to be normal. Rate and rhythm are regular. She does have a holosystolic murmur. LUNGS: Clear without rales, wheezes, or rhonchi. ABDOMEN: Soft, nontender. Bowel sounds present in all four quadrants. There is no pedal edema. IMPRESSION: 1. Atrial fibrillation with rapid ventricular response. This is greatly improved. She is now in sinus rhythm. The patient is being discharged on a dose of amiodarone 200 mg on a daily basis. 2. Hypotension. This has actually greatly improved after the patient in sinus rhythm at a controlled rate. 3. Weakness. This has improved, but this is chronic and progressive problem for the patient. 4. MDS (myelodysplastic syndrome), transfusion dependent. She is status post 2 units packed RBCs on 11/21/2019. Her hemoglobin is holding very well at 11.1. She is now having lab work every Wednesday ordered by Dr. Sanchez with a Granix 50 mcg twice weekly. 5. Elevated transaminases. She did have a hepatic ultrasound performed on 11/22/2019, which showed fatty liver, borderline hepatomegaly. 6. Hyperbilirubinemia. This has actually improved and I am unclear of why, however, I am happy to see it. 7. Elevated WBC secondary to Granix. This is trending downward and now her ANC is less than two. She will receive Granix 50 mcg today prior to discharge. She will also receive Procrit. 8. Hypothyroidism. This is stable at this time with a normal TSH of 0.88. She will have repeat TSH in six weeks, now that she is on amiodarone. 9. Chronic anticoagulation for stroke prophylaxis with Eliquis. 10.Congestive heart failure, stable at this time. 11.Diabetes mellitus, stable on metformin. I did contact [facility] to set the patient up for home O2 to be used nocturnally. They will contact the patient to set this up. /[id number]/MODL
== END 2019-11-24 10:28 | disposition home or self-care (01) | DRG 310 ==
LOC: KA.IVTHER 14:15 → UNDOADMOB 17:30 → KA.MS 17:30 → UNDOADMOB 11-22 14:08 → KA.MS 11-22 14:08 → OBSVTOIN 11-22 14:08 → INTOOBSV 11-22 14:16 → OBSVTOIN 11-22 14:16
PROVIDERS: ATTEND Internal Medicine
PROC: 30233N1 Transfusion of Nonautologous Red Blood Cells into Peripheral Vein, Percutaneous Approach (ICD-10-PCS; principal; 2019-11-23)
DX: I95.9 Hypotension, unspecified (principal); I48.91 Unspecified atrial fibrillation; D46.9 Myelodysplastic syndrome, unspecified; D63.8 Anemia in other chronic diseases classified elsewhere; I50.9 Heart failure, unspecified; R53.1 Weakness; E11.9 Type 2 diabetes mellitus without complications; R74.8 Abnormal levels of other serum enzymes; I50.22 Chronic systolic (congestive) heart failure; E03.9 Hypothyroidism, unspecified; E83.42 Hypomagnesemia; Z79.890 Hormone replacement therapy; Z79.01 Long term (current) use of anticoagulants; Z79.52 Long term (current) use of systemic steroids; Z79.84 Long term (current) use of oral hypoglycemic drugs; Z79.899 Other long term (current) drug therapy
CPT/HCPCS: 36415; 36430; 76705; 80053; 82962; 83735; 84443; 85025; 85048; 86850; 86900; 86901; 86920; 86922; 93005; 96374; 96376; A9270-GY; G0378; J0282; J0885; J1160; J1447; J7030; J7050; P9016

== ENCOUNTER 2019-12-25 19:50 | Inpatient (IN) | payer MEDICARE, BC ==
[2019-12-25] MEDS ORDERED: Sodium Chloride 0.9% 1,000 ML IV ONE (20:23)
--- NOTE | 2019-12-25 20:43 | EDM.PDOC ---
ED HPI GENERAL MEDICAL PROBLEM - General Chief Complaint: General Stated Complaint: tachycardia, SOB Time Seen by Provider: 12/25/19 20:29 Source of Information: Reports: Patient History Limitations: Reports: No Limitations - History of Present Illness INITIAL COMMENTS - FREE TEXT/NARRATIVE: Patient presents with tachycardia, fatigue, weakness and dyspnea. This started yesterday patient says. She gets routine blood transfusions when her Hg drops below 7.5 and received two units this evening when it was found to be 6.6. Patient felt weak 3 days ago but Hg was 7.7 so didn't have the transfusion then. She denies chest pain. - Related Data Allergies Allergy/AdvReac Type Severity Reaction Status Date / Time hydrocodone Allergy Diaphoresis Verified 12/25/19 20:27 pregabalin [From Lyrica] Allergy TIA Verified 12/25/19 20:27 acetaminophen [From Tylenol] AdvReac Mild Nausea and Verified 12/25/19 20:27 Vomiting Home Meds: Home Meds Levothyroxine Sodium [Synthroid] 150 mcg PO QAM 03/25/16 [History] Apixaban [Eliquis] 2.5 mg PO 0900,1800 03/28/19 [History] Docusate Sodium [Colace] 100 mg PO DAILY 05/22/19 [History] Furosemide 20 mg PO QAM 05/22/19 [History] Epoetin Ronald [Procrit] 60,000 unit SUBCUT WEEKLY 07/27/19 [History] Magnesium Oxide [Magnesium] 2 tab PO 1200 10/16/19 [History] metFORMIN HCl [Metformin HCl] 500 mg PO 0900,2100 10/16/19 [History] Cholecalciferol (Vitamin D3) [Vitamin D3] 1,000 unit PO 1800 10/26/19 [History] Furosemide 20 mg PO DAILY PRN 11/15/19 [History] Metoprolol Succinate [Toprol XL] 25 mg PO 1200 11/15/19 [History] Tbo-Filgrastim [Granix] 50 mcg SUBCUT TUFR 11/15/19 [History] Amiodarone [Cordarone] 200 mg PO DAILY #30 tablet 11/24/19 [Rx] L.acidoph,Paracasei, B.lactis [Probiotic] 1 cap PO ASDIRECTED 12/25/19 [History] Triamcinolone Acetonide [Triamcinolone Acetonide 0.1% Oint] 1 applic TOP ASDIRECTED 12/25/19 [History] predniSONE [Prednisone] 15 mg PO DAILY 12/25/19 [History] Past Medical History HEENT History: Reports: Cataract, Impaired Vision Cardiovascular History: Reports: Afib, Heart Murmur, Hypertension, MO, Syncope Respiratory History: Reports: None Gastrointestinal History: Reports: Colon Polyp Other Gastrointestinal History: H Pylori Genitourinary History: Reports: None Other Genitourinary History: stress incontinence h/o [employer] History: Reports: Fibroids, Musculoskeletal History: Reports: Arthritis, Fibromyalgia Neurological History: Reports: CVA Psychiatric History: Reports: None Endocrine/Metabolic History: Reports: Hypothyroidism Hematologic History: Reports: Anemia, Blood Transfusion(s), Other (See Below) Other Hematologic History: MDS Immunologic History: Reports: Immunosuppression Oncologic (Cancer) History: Reports: Other (See Below) Other Oncologic History: MDS Dermatologic History: Reports: Eczema - Infectious Disease History Infectious Disease History: Reports: Chicken Pox, Measles, Mumps, Pertussis ( Whooping Cough) - Past Surgical History Head Surgeries/Procedures: Reports: None HEENT Surgical History: Reports: Cataract Surgery Cardiovascular Surgical History: Reports: None Respiratory Surgical History: Reports: None GI Surgical History: Reports: Appendectomy, Cholecystectomy, Colonoscopy Female Surgical History: Reports: Hysterectomy, Salpingo-Oophorectomy, Tubal Ligation Endocrine Surgical History: Reports: Thyroidectomy Neurological Surgical History: Reports: None Musculoskeletal Surgical History: Reports: Arthroscopic Knee, Carpal Tunnel, Joint Replacement, Knee Replacement Oncologic Surgical History: Reports: Bone Marrow Aspiration Dermatological Surgical History: Reports: None Social & Family History - Family History Family Medical History: Noncontributory - Caffeine Use Caffeine Use: Reports: Tea ED ROS GENERAL - Review of Systems Review Of Systems: See Below Constitutional: Reports: Malaise, Weakness, Fatigue. Denies: Fever, Chills HEENT: Denies: Ear Pain, Throat Pain, Vision Change Respiratory: Reports: Shortness of Breath. Denies: Cough Cardiovascular: Denies: Chest Pain Endocrine: Reports: Fatigue GI/Abdominal: Denies: Abdominal Pain, Vomiting Musculoskeletal: Denies: Neck Pain, Shoulder Pain, Arm Pain Skin: Reports: Pallor. Denies: Mottled, Diaphoresis Neurological: Reports: Weakness. Denies: Confusion Psychiatric: Denies: Agitation, Anxiety, Confusion Hematologic/Lymphatic: Reports: Anemia ED EXAM, GENERAL - Physical Exam Exam: See Below Exam Limited By: No Limitations General Appearance: Alert, WD/WN, No Apparent Distress Eye Exam: Bilateral Eye: EOMI, Normal Inspection, PERRL Ears: Normal External Exam, Hearing Grossly Normal Nose: Normal Inspection, No Blood Throat/Mouth: Normal Inspection, Normal Lips, Normal Voice, No Airway Compromise Head: Atraumatic, Normocephalic Neck: Normal Inspection, Full Range of Motion Respiratory/Chest: Lungs Clear, Normal Breath Sounds, No Accessory Muscle Use, Other (tachypnea) Cardiovascular: Tachycardia, Other (weak peripheral pulses) Peripheral Pulses: 2+: Carotid (L), Carotid (R) GI/Abdominal: Normal Bowel Sounds, Soft, Non-Tender, No Organomegaly, No Distention Back Exam: Normal Inspection, Full Range of Motion. No: CVA Tenderness (L), CVA Tenderness (R) Extremities: Other (hands and feet are cool, but patient feels warm she says) Neurological: Alert, Oriented, Normal Cognition Psychiatric: Other (appears very tired, weak and defeated) Skin Exam: Dry, Intact Course - Vital Signs Last Recorded V/S: Last Vital Signs Temp 96.4 F L 12/25/19 19:50 Pulse 123 H 12/25/19 22:14 Resp 32 H 12/25/19 22:14 BP 87/48 L 12/25/19 22:14 Pulse Ox 94 L 12/25/19 21:47 - Orders/Labs/Meds Orders: Active Orders 24 hr Category Date Time Status Patient Status Manage Transfer [TRANSFER] Routine ADT 12/25/19 22:50 Active Patient Status [ADT] Routine ADT 12/25/19 22:49 Active EKG Documentation Completion [RC] ASDIRECTED Care 12/25/19 20:23 Active Chest 2V [CR] Stat Exams 12/25/19 20:23 Ordered CULTURE BLOOD [BC] Stat Lab 12/25/19 22:35 Ordered CULTURE BLOOD [BC] Stat Lab 12/25/19 22:35 Ordered Amiodarone [Cordarone] Med 12/26/19 09:00 Unverified DOSE UNIT RTE FREQ Apixaban [Eliquis] Med 12/26/19 09:00 Unverified DOSE UNIT RTE FREQ Azithromycin [Zithromax] 500 mg Med 12/25/19 22:43 Active Sodium Chloride 0.9% [Normal Saline] 250 ml IV ONETIME Cholecalciferol (Vitamin D3) [Vitamin D3] Med 12/26/19 18:00 Unverified DOSE UNIT RTE FREQ Docusate Sodium [Colace] Med 12/26/19 09:00 Ordered 100 mg PO DAILY Epoetin Ronald [Procrit] Med 12/25/19 23:00 Ordered 60,000 units SUBCUT WEEKLY Furosemide [Lasix] Med 12/25/19 22:52 Ordered 20 mg PO DAILY PRN Furosemide [Lasix] Med 12/26/19 09:00 Ordered 20 mg PO QAM L.acidoph,Paracasei, B.lactis [Probiotic] Med 12/25/19 23:00 Ordered 1 cap PO ASDIRECTED Levothyroxine Sodium [Synthroid] Med 12/26/19 09:00 Ordered 150 mcg PO QAM Magnesium Oxide [Magnesium] Med 12/26/19 12:00 Ordered 2 tab PO 1200 Metoprolol Succinate [Toprol XL] Med 12/26/19 12:00 Ordered 25 mg PO 1200 Tbo-Filgrastim [Granix] Med 12/26/19 22:52 Ordered 50 mcg SUBCUT TUFR Triamcinolone Acetonide [Triamcinolone Acetonide 0.1% Med 12/25/19 23:00 Ordered Oint] 1 applic TOP ASDIRECTED metFORMIN [Glucophage] Med 12/26/19 09:00 Ordered 500 mg PO 0900,2100 predniSONE Med 12/26/19 09:00 Ordered 15 mg PO DAILY Blood Culture x2 Reflex Set [OM.PC] Stat Oth 12/25/19 22:34 Ordered EKG 12 Lead [EK] Stat Ther 12/25/19 20:22 Ordered Medication Orders Docusate Sodium (Colace) 100 mg PO DAILY [facility] Epoetin Ronald (Procrit) 60,000 units SUBCUT WEEKLY [facility] Furosemide (Lasix) 20 mg PO DAILY PRN PRN Reason: Other Furosemide (Lasix) 20 mg PO QAM [facility] Azithromycin 500 mg/ Sodium (Chloride) 250 mls @ 250 mls/hr IV ONETIME ONE Stop: 12/25/19 23:42 Metformin HCl (Glucophage) 500 mg PO 0900,2100 [facility] Metoprolol Succinate (Toprol Xl) 25 mg PO 1200 [facility] Non-Formulary Medication (L.Acidoph,Paracasei, B.Lactis [Probiotic]) 1 cap PO ASDIRECTED [facility] Non-Formulary Medication (Levothyroxine Sodium [Synthroid]) 150 mcg PO QAM [facility] Non-Formulary Medication (Magnesium Oxide [Magnesium]) 2 tab PO 1200 [facility] Prednisone (Prednisone) 15 mg PO DAILY [facility] [place] Tbo-Filgrastim (Granix) 50 mcg SUBCUT TUFR [facility] [place] Triamcinolone Acetonide (Triamcinolone Acetonide 0.1% Oint) gm TOP ASDIRECTED [facility] Labs: Laboratory Tests 12/25/19 Range/Units 21:05 Sodium 128 L D (136-145) mmol/L Potassium 5.6 H (3.3-5.3) mmol/L Chloride 94 L (98-115) mmol/L Carbon Dioxide 14.1 L D (21.0-32.0) mmol/L Anion Gap 25.5 H (5-15) mmol/L BUN 54 H* (6-25) mg/dL Creatinine 1.24 H (0.51-1.17) mg/dL Est Cr Clr Drug Dosing 30.81 mL/min Estimated GFR (MDRD) 41 mL/min Glucose 156 H (75 - 99) mg/dL Calcium 8.8 (8.7-10.3) mg/dL Total Bilirubin 7.1 H (0.2-1.0) mg/dL AST 101 H (15-37) U/L ALT 124 H (12-78) U/L Alkaline Phosphatase 95 (46-116) IU/L Troponin I 0.14 H* (0.00-0.070) ng/mL Total Protein 6.7 (6.4-8.2) g/dL Albumin 3.10 (3.00-4.80) g/dL Meds: Medications Generic Name Dose Route Start Last Admin Trade Name Freq PRN Reason Stop Dose Admin Docusate Sodium 100 mg 12/26/19 09:00 Colace PO DAILY [facility] [place] Epoetin Ronald 60,000 units 12/25/19 23:00 Procrit SUBCUT WEEKLY [facility] Furosemide 20 mg 12/25/19 22:52 Lasix PO DAILY PRN Other Furosemide 20 mg 12/26/19 09:00 Lasix PO QAM [facility] Azithromycin 500 mg/ Sodium 250 mls @ 250 mls/hr 12/25/19 22:43 Chloride IV 12/25/19 23:42 ONETIME ONE Metformin HCl 500 mg 12/26/19 09:00 Glucophage PO 0900,2100 [facility] [place] Metoprolol Succinate 25 mg 12/26/19 12:00 Toprol Xl PO 1200 [facility] Non-Formulary Medication 1 cap 12/25/19 23:00 L.Acidoph,Paracasei, B.Lactis [Probiotic] PO ASDIRECTED [facility] [place] Non-Formulary Medication 150 mcg 12/26/19 09:00 Levothyroxine Sodium [Synthroid] PO QAM [facility] Non-Formulary Medication 2 tab 12/26/19 12:00 Magnesium Oxide [Magnesium] PO 1200 [facility] Prednisone 15 mg 12/26/19 09:00 Prednisone PO DAILY [facility] [place] Tbo-Filgrastim 50 mcg 12/26/19 22:52 Granix SUBCUT TUFR [facility] Triamcinolone Acetonide gm 12/25/19 23:00 Triamcinolone Acetonide 0.1% Oint TOP ASDIRECTED [facility] Discontinued Medications Generic Name Dose Route Start Last Admin Trade Name Freq PRN Reason Stop Dose Admin Ceftriaxone Sodium 1 gm 12/25/19 22:43 Rocephin IVPUSH 12/25/19 22:44 ONETIME ONE Digoxin 250 mcg 12/25/19 22:36 Lanoxin IVPUSH 12/25/19 22:37 ONETIME ONE Sodium Chloride 1,000 mls @ 999 mls/hr 12/25/19 20:23 12/25/19 20:55 Normal Saline IV 12/25/19 21:23 999 mls/hr .BOLUS ONE Administration - Re-Assessments/Exams Free Text/Narrative Re-Assessment/Exam: 12/25/19 22:46 CXR shows infiltrates of right middle and lower lobes. WBC is 3.78, trop is 0.14 which is not likely MO comparing with mildly elevated troponins 6 times in the last 14 months. Discussed case with Dr. Vigil who advises admission with digoxin for HR and CAP treatment. Patient agrees with plan. Departure - Departure Time of Disposition: 22:44 Disposition: Admitted As Inpatient 68 Condition: Good Clinical Impression: Atrial fibrillation with RVR CAP (community acquired pneumonia) Qualifiers: Laterality: right Lung location: middle lobe of lung Qualified Code(s): J18.9 - Pneumonia, unspecified organism Hypotension Qualifiers: Hypotension type: unspecified hypotension type Qualified Code(s): I95.9 - Hypotension, unspecified - Discharge Information Referrals: Alexa Suero MD [Primary Care Provider] - Forms: ED Department Discharge Sepsis Event Note - Evaluation Sepsis Screening Result: No Definite Risk - Focused Exam Vital Signs: Vital Signs Temp Pulse Pulse Resp BP BP Pulse Ox 12/25/19 22:14 123 H 32 H 87/48 L 12/25/19 21:47 34 H 86/45 L 94 L 12/25/19 21:12 124 H 34 H 92/30 L 98 12/25/19 20:55 122 H 34 H 86/54 L 98 12/25/19 20:28 130 H 36 H 85/51 L 97 12/25/19 19:50 96.4 F L 112 H 31 H 96/55 L 98 Date Exam was Performed: 12/25/19 Time Exam was Performed: 23:01 - My Orders Last 24 Hours: My Active Orders 12/25/19 20:22 EKG 12 Lead [EK] Stat 12/25/19 20:23 EKG Documentation Completion [RC] ASDIRECTED Chest 2V [CR] Stat 12/25/19 22:34 Blood Culture x2 Reflex Set [OM.PC] Stat 12/25/19 22:35 CULTURE BLOOD [BC] Stat CULTURE BLOOD [BC] Stat 12/25/19 22:43 Azithromycin [Zithromax] 500 mg Sodium Chloride 0.9% [Normal Saline] 250 ml IV ONETIME 12/25/19 22:49 Patient Status [ADT] Routine 12/25/19 22:50 Patient Status Manage Transfer [TRANSFER] Routine 12/25/19 22:52 Furosemide [Lasix] 20 mg PO DAILY PRN 12/25/19 23:00 Epoetin Ronald [Procrit] 60,000 units SUBCUT WEEKLY L.acidoph,Paracasei, B.lactis [Probiotic] 1 cap PO ASDIRECTED Triamcinolone Acetonide [Triamcinolone Acetonide 0.1% Oint] 1 applic TOP ASDIRECTED 12/26/19 09:00 Amiodarone [Cordarone] DOSE UNIT RTE FREQ Apixaban [Eliquis] DOSE UNIT RTE FREQ Docusate Sodium [Colace] 100 mg PO DAILY Furosemide [Lasix] 20 mg PO QAM Levothyroxine Sodium [Synthroid] 150 mcg PO QAM metFORMIN [Glucophage] 500 mg PO 0900,2100 predniSONE 15 mg PO DAILY 12/26/19 12:00 Magnesium Oxide [Magnesium] 2 tab PO 1200 Metoprolol Succinate [Toprol XL] 25 mg PO 1200 12/26/19 18:00 Cholecalciferol (Vitamin D3) [Vitamin D3] DOSE UNIT RTE FREQ 12/26/19 22:52 Tbo-Filgrastim [Granix] 50 mcg SUBCUT TUFR - Assessment/Plan Last 24 Hours: My Active Orders 12/25/19 20:22 EKG 12 Lead [EK] Stat 12/25/19 20:23 EKG Documentation Completion [RC] ASDIRECTED Chest 2V [CR] Stat 12/25/19 22:34 Blood Culture x2 Reflex Set [OM.PC] Stat 12/25/19 22:35 CULTURE BLOOD [BC] Stat CULTURE BLOOD [BC] Stat 12/25/19 22:43 Azithromycin [Zithromax] 500 mg Sodium Chloride 0.9% [Normal Saline] 250 ml IV ONETIME 12/25/19 22:49 Patient Status [ADT] Routine 12/25/19 22:50 Patient Status Manage Transfer [TRANSFER] Routine 12/25/19 22:52 Furosemide [Lasix] 20 mg PO DAILY PRN 12/25/19 23:00 Epoetin Ronald [Procrit] 60,000 units SUBCUT WEEKLY L.acidoph,Paracasei, B.lactis [Probiotic] 1 cap PO ASDIRECTED Triamcinolone Acetonide [Triamcinolone Acetonide 0.1% Oint] 1 applic TOP ASDIRECTED 12/26/19 09:00 Amiodarone [Cordarone] DOSE UNIT RTE FREQ Apixaban [Eliquis] DOSE UNIT RTE FREQ Docusate Sodium [Colace] 100 mg PO DAILY Furosemide [Lasix] 20 mg PO QAM Levothyroxine Sodium [Synthroid] 150 mcg PO QAM metFORMIN [Glucophage] 500 mg PO 0900,2100 predniSONE 15 mg PO DAILY 12/26/19 12:00 Magnesium Oxide [Magnesium] 2 tab PO 1200 Metoprolol Succinate [Toprol XL] 25 mg PO 1200 12/26/19 18:00 Cholecalciferol (Vitamin D3) [Vitamin D3] DOSE UNIT RTE FREQ 12/26/19 22:52 Tbo-Filgrastim [Granix] 50 mcg SUBCUT TUFR
[2019-12-25 21:43] LABS: ANION GAP 25.5 mmol/L (5-15)
[2019-12-25] MEDS ORDERED: Digoxin 500 MCG/2 ML Amp IVPUSH ONE (22:36)
[2019-12-25] MEDS ORDERED: Azithromycin 500 MG in Sodium Chloride 0.9% 250 ML IV ONE (22:43)
[2019-12-25] MEDS ORDERED: cefTRIAXone 1 GM Vial IVPUSH ONE (22:43)
[2019-12-25] MEDS ORDERED: Furosemide 20 MG Tab PO PRN (22:52)
[2019-12-25] MEDS ORDERED: Triamcinolone Acetonide 0.1% Oint 15 GM Tube TOP SCH (23:00)
[2019-12-25] MEDS ORDERED: Non-Formulary Medication 1 Each (L.Acidoph,Paracasei, B.Lactis [Probiotic] 1 CAP) PO SCH (23:00)
[2019-12-25] MEDS ORDERED: Sodium Chloride 0.9% 500 ML ONE (23:16)
[2019-12-25] MEDS ORDERED: Sodium Chloride 0.9% 500 ML IV SCH (23:30)
[2019-12-26] MEDS ORDERED: Metoprolol Succinate 25 MG Tab.ER PO SCH ×2 (00:45→12:00)
[2019-12-26] MEDS ORDERED: Apixaban 5 MG Tab PO SCH ×2 (00:45→09:00)
[2019-12-26 01:04] VITALS: BP 90/62; PULSE 110
[2019-12-26] MEDS ORDERED: Levothyroxine 50 MCG Tab PO SCH (07:30)
[2019-12-26] MEDS ORDERED: metFORMIN 500 MG Tab PO SCH ×2 (08:00→09:00)
--- NOTE | 2019-12-26 08:12 | CR ---
[id number] RAD/RAD Chest PA And Lateral EXAM: RAD Chest PA And Lateral CLINICAL DATA: SHORTNESS OF BREATH COMPARISON: CORRELATION IS MADE WITH OCTOBER 16, 2019 FINDINGS: The lungs are clear The cardiomediastinal contour is stable The chest port again is seen IMPRESSION: NO ACUTE PROCESS. Mikael Burton MD 12/26/19 0811 Thank you for allowing us to participate in the care of your patient.
--- NOTE | 2019-12-26 08:53 | PCM.DCSUM1 ---
Discharge Summary - Hospital Course Free Text/Narrative:: Dodie was admitted on 12/24 from the ER with a-fib with RVR, tachypnea and weakness. Earlier in the day she had received a blood transfusion for a hemoglobin of 6 per her standing orders with her diagnosis of MDS. She also received 1 liter of IVF's. This is typical for her, she usually goes home and rests and improves over a few days. Last evening, however, she continued to be symptomatic and so presented to the ER. She was tachypneic with a RR in the 30' s as well as hypotension with systolic BP's in the 80's and HR in the 130's. She was on metoprolol. She was also anticoagulated with xarelto. Troponin was mildly elevated at 0.14 although this is consistent with previous/ baseline troponins. She was having no CP. ER Provider felt she had a right sided infiltrate on CXR although radiology report stated "no acute process". To be safe, the ER provider started her on azithromycin and rocephin and blood cultures were obtained. Her WBC was 4. She was afebrile. Given her HR, per past cardiology recommendations, she was dig loaded with 250 mcg of digoxin IV. She was also on amiodarone from previous admission. Her HR came down to the 110's. Per nursing report, she had antibiotics running and some agonal breathing, when she was checked on after her antibiotics finished running she had . 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 Secondary cause of : MDS Diagnosis: Stroke: No Modified Osiel Scale: Modified Gunnison Scale Score: 6 - Discharge Data Discharge Date: 12/26/19 Discharge Disposition: Condition: Good - Referral to Home Health Primary Care Physician: Alexa Suero MD - Discharge Plan Home Medications: Home Meds Levothyroxine Sodium [Synthroid] 150 mcg PO QAM 03/25/16 [History] Apixaban [Eliquis] 2.5 mg PO 0900,1800 03/28/19 [History] Docusate Sodium [Colace] 100 mg PO DAILY 05/22/19 [History] Furosemide 20 mg PO QAM 05/22/19 [History] Epoetin Ronald [Procrit] 60,000 unit SUBCUT WEEKLY 07/27/19 [History] Magnesium Oxide [Magnesium] 2 tab PO 1200 10/16/19 [History] metFORMIN HCl [Metformin HCl] 500 mg PO 0900,1800 10/16/19 [History] Cholecalciferol (Vitamin D3) [Vitamin D3] 1,000 unit PO 1800 10/26/19 [History] Furosemide 20 mg PO DAILY PRN 11/15/19 [History] Metoprolol Succinate [Toprol XL] 25 mg PO 1200 11/15/19 [History] Tbo-Filgrastim [Granix] 50 mcg SUBCUT TUFR 11/15/19 [History] Amiodarone [Cordarone] 200 mg PO DAILY #30 tablet 11/24/19 [Rx] Triamcinolone Acetonide [Triamcinolone Acetonide 0.1% Oint] 1 applic TOP ASDIRECTED 12/25/19 [History] Forms: ED Department Discharge Referrals: Alexa Suero MD [Primary Care Provider] - - Discharge Summary/Plan Comment DC Time >30 min.: No - Patient Data Vitals - Most Recent: Last Vital Signs Temp 96.2 F L 12/25/19 22:50 Pulse 110 H 12/26/19 00:57 Resp 32 H 12/26/19 00:10 BP 90/62 12/26/19 01:04 Pulse Ox 96 12/26/19 00:10 Weight - Most Recent: 119 lb 5 oz Lab Results - Last 24 hrs: Laboratory Results - last 24 hr 12/25/19 12/25/19 Range/Units 21:05 22:45 Sodium 128 L D (136-145) mmol/L Potassium 5.6 H (3.3-5.3) mmol/L Chloride 94 L (98-115) mmol/L Carbon Dioxide 14.1 L D (21.0-32.0) mmol/L Anion Gap 25.5 H (5-15) mmol/L BUN 54 H* (6-25) mg/dL Creatinine 1.24 H (0.51-1.17) mg/dL Est Cr Clr Drug Dosing 30.81 mL/min Estimated GFR (MDRD) 41 mL/min Glucose 156 H (75 - 99) mg/dL Calcium 8.8 (8.7-10.3) mg/dL Total Bilirubin 7.1 H (0.2-1.0) mg/dL AST 101 H (15-37) U/L ALT 124 H (12-78) U/L Alkaline Phosphatase 95 (46-116) IU/L Troponin I 0.14 H* (0.00-0.070) ng/mL Total Protein 6.7 (6.4-8.2) g/dL Albumin 3.10 (3.00-4.80) g/dL SARS-CoV-2 RNA (RT-PCR) Negative (NEGATIVE) Med Orders - Current: Current Medications Discontinued Medications Amiodarone HCl (Cordarone) 200 mg PO DAILY [facility] Apixaban (Eliquis) 2.5 mg PO BID@0900,1800 [facility] Apixaban (Eliquis) 2.5 mg PO BID@0900,1800 [facility] Last Admin: 12/26/19 00:52 Dose: 2.5 mg Ceftriaxone Sodium (Rocephin) 1 gm IVPUSH ONETIME ONE Stop: 12/25/19 22:44 Last Admin: 12/25/19 23:49 Dose: 1 gm Cholecalciferol (Vitamin D3) 25 mcg PO DAILY@1800 [facility] Digoxin (Lanoxin) 250 mcg IVPUSH ONETIME ONE Stop: 12/25/19 22:37 Last Admin: 12/25/19 23:18 Dose: 250 mcg Docusate Sodium (Colace) 100 mg PO DAILY [facility] Epoetin Ronald (Procrit) 60,000 units SUBCUT Fr@0900 [facility] Furosemide (Lasix) 20 mg PO DAILY PRN PRN Reason: Other Furosemide (Lasix) 20 mg PO QAM [facility] Sodium Chloride (Normal Saline) 1,000 mls @ 999 mls/hr IV .BOLUS ONE Stop: 12/25/19 21:23 Last Admin: 12/25/19 20:55 Dose: 999 mls/hr Azithromycin 500 mg/ Sodium (Chloride) 250 mls @ 250 mls/hr IV ONETIME ONE Stop: 12/25/19 23:42 Last Admin: 12/26/19 00:27 Dose: 250 mls/hr Sodium Chloride (Normal Saline) Confirm Administered Dose 500 mls @ as directed .ROUTE .STK-MED ONE Stop: 12/25/19 23:17 Last Admin: 12/26/19 00:00 Dose: Not Given Sodium Chloride (Normal Saline) 500 mls @ 25 mls/hr IV ASDIRECTED [facility] Last Admin: 12/25/19 23:45 Dose: 25 mls/hr Levothyroxine Sodium (Synthroid) 150 mcg PO ACBREAKFAST [facility] Metformin HCl (Glucophage) 500 mg PO 0900,2100 [facility] Metformin HCl (Glucophage) 500 mg PO BIDMEALS [facility] Metoprolol Succinate (Toprol Xl) 25 mg PO 1200 [facility] Metoprolol Succinate (Toprol Xl) 25 mg PO DAILY@1200 [facility] Last Admin: 12/26/19 00:57 Dose: Not Given Non-Formulary Medication (L.Acidoph,Paracasei, B.Lactis [Probiotic]) 1 cap PO ASDIRECTED [facility] Non-Formulary Medication (Levothyroxine Sodium [Synthroid]) 150 mcg PO QAM [facility] Non-Formulary Medication (Magnesium Oxide [Magnesium]) 2 tab PO 1200 [facility] Non-Formulary Medication (Apixaban [Eliquis]) 2.5 mg PO 0900,1800 [facility] Non-Formulary Medication (Cholecalciferol (Vitamin D3) [Vitamin D3]) 1,000 unit PO 1800 [facility] Prednisone (Prednisone) 15 mg PO DAILY [facility] Tbo-Filgrastim (Granix) 50 mcg SUBCUT TUFR [facility] Tbo-Filgrastim (Granix) 50 mcg SUBCUT TuFr@0900 [facility] Triamcinolone Acetonide (Triamcinolone Acetonide 0.1% Oint) gm TOP ASDIRECTED [facility]
[2019-12-26] MEDS ORDERED: Amiodarone 200 MG Tab PO SCH (09:00)
[2019-12-26] MEDS ORDERED: predniSONE 20 MG Tab PO SCH (09:00)
[2019-12-26] MEDS ORDERED: Non-Formulary Medication 1 Each (Levothyroxine Sodium [Synthroid] 150 MCG) PO SCH (09:00)
[2019-12-26] MEDS ORDERED: Non-Formulary Medication 1 Each (Apixaban [Eliquis] 2.5 MG) PO SCH (09:00)
[2019-12-26] MEDS ORDERED: Docusate Sodium 100 MG Cap PO SCH (09:00)
[2019-12-26] MEDS ORDERED: Furosemide 40 MG Tab PO SCH (09:00)
[2019-12-26] MEDS ORDERED: MAGNESIUM OXIDE PO SCH (12:00)
[2019-12-26] MEDS ORDERED: Cholecalciferol (Vitamin D3) 25 MCG Tab PO SCH (18:00)
[2019-12-26] MEDS ORDERED: Non-Formulary Medication 1 Each (Cholecalciferol (Vitamin D3) [Vitamin D3] 1,000 UNIT) PO SCH (18:00)
[2019-12-29] MEDS ORDERED: Epoetin Alfa 20,000 Units/1 ML MDV SUBCUT SCH (09:00)
== END 2019-12-26 01:52 | disposition expired | DRG 642 ==
LOC: KA.ED 19:50 → KA.MS 22:49 → UNDOADMIN 23:10 → KA.MS 12-26 00:42 → UNDODISIN 12-26 01:52
PROVIDERS: ADMIT Internal Medicine; ATTEND Internal Medicine
PROC: 30233N1 Transfusion of Nonautologous Red Blood Cells into Peripheral Vein, Percutaneous Approach (ICD-10-PCS; principal; 2019-12-25)
DX: J18.9 Pneumonia, unspecified organism (principal); E83.111 Hemochromatosis due to repeated red blood cell transfusions; I50.42 Chronic combined systolic (congestive) and diastolic (congestive) heart failure; I11.0 Hypertensive heart disease with heart failure; D46.9 Myelodysplastic syndrome, unspecified; I10 Essential (primary) hypertension; I48.91 Unspecified atrial fibrillation; I46.2 Cardiac arrest due to underlying cardiac condition; I95.9 Hypotension, unspecified; H54.7 Unspecified visual loss; M19.90 Unspecified osteoarthritis, unspecified site; D84.9 Immunodeficiency, unspecified; N39.3 Stress incontinence (female) (male); M79.7 Fibromyalgia; Z96.659 Presence of unspecified artificial knee joint; Z20.828 Contact with and (suspected) exposure to other viral communicable diseases; E89.0 Postprocedural hypothyroidism; E03.9 Hypothyroidism, unspecified; Z88.6 Allergy status to analgesic agent; D89.9 Disorder involving the immune mechanism, unspecified; Z98.49 Cataract extraction status, unspecified eye; Z90.49 Acquired absence of other specified parts of digestive tract; Z79.899 Other long term (current) drug therapy; Z90.710 Acquired absence of both cervix and uterus; Z79.01 Long term (current) use of anticoagulants; Z88.5 Allergy status to narcotic agent; Z88.8 Allergy status to other drugs, medicaments and biological substances; Z86.010 Personal history of colon polyps; I25.2 Old myocardial infarction; Z79.890 Hormone replacement therapy; Z98.51 Tubal ligation status; Z86.73 Personal history of transient ischemic attack (TIA), and cerebral infarction without residual deficits
CPT/HCPCS: 36415; 36556; 71046; 80053; 84484; 93005; 96361; 96374; 99285-25; A9270-GY; J0456; J0696; J1160; J7030; J7040; J7050; U0002